=== PATIENT | male | born 1980 | race Caucasian/White ===

== ENCOUNTER 2016-11-18 09:05 | Inpatient (IN) | payer BC, OTHER ==
[2016-11-18] MEDS ORDERED: SODIUM CHLORIDE 0.9% 1,000 ML IV STA (09:11)
[2016-11-18 09:23] LABS: Glucose,Whole Blood 33 mg/dL (75-99)
[2016-11-18 09:23] LABS: Glucose,Whole Blood 136 mg/dL (75-99)
--- NOTE | 2016-11-18 09:36 | ED ---
Altered Mental Status HPI - General Chief Complaint: Altered Mental Status Stated Complaint: poss seizure Time Seen by Provider: 11/18/16 09:11 Source: EMS, RN notes reviewed Mode of arrival: EMS Limitations: altered mental status - History of Present Illness Initial Comments: Patient is a 36-year-old male presents emergency room for evaluation. Patient was brought in by EMS. Patient was apparently found on the side of the road having a possible seizure. Patient has no recollection of anything. Patient states last thing he remembers was sitting in his apartment and then he was here. Patient denies drinking. Patient denies illicit drug use. Patient does state he was started on a new sleeping medication by Dr. Polo about 3 days ago. Patient does admit that he has a history of seizures. Patient states last seizure was about 15 years ago. Patient denies taking any medications for seizures. Patient states and the other medication he is on is for blood pressure. Patient denies headache, dizziness, changes in vision, chest pain, shortness of breath, abdominal pain, nausea, vomiting, paresthesias, weakness, unilateral weakness, fevers, chills. - Related Data Home Medications Medication Instructions Recorded Confirmed Lisinopril [Zestril] 10 mg PO DAILY 11/18/16 11/18/16 Mirtazapine [Remeron] 15 mg PO HS 11/18/16 11/18/16 traZODone HCL [Desyrel] 100 mg PO HS 11/18/16 11/18/16 Allergies Allergy/AdvReac Type Severity Reaction Status Date / Time hot sauce Allergy Swelling Uncoded 11/18/16 09:17 Review of Systems ROS Statement: Those systems with pertinent positive or pertinent negative responses have been documented in the HPI. ROS Other: All systems not noted in ROS Statement are negative. Past Medical History Past Medical History: Asthma, Hypertension, Seizure Disorder History of Any Multi-Drug Resistant Organisms: None Reported Past Surgical History: Cholecystectomy Past Psychological History: Anxiety, Depression Smoking Status: Current every day smoker Past Alcohol Use History: Occasional Past Drug Use History: None Reported - Past Family History Father Family Medical History: Cancer Additional Family Medical History / Comment(s): Prostate cancer. Mother History Unknown: Yes Additional Family Medical History / Comment(s): Pt states he does not have much contact with his mother. General Exam - General Exam Comments Initial Comments: Sitting in exam room, no acute distress. Limitations: altered mental status General appearance: alert, in no apparent distress Head exam: Present: atraumatic, normocephalic, normal inspection Eye exam: Present: normal appearance ENT exam: Present: normal exam Neck exam: Present: normal inspection Respiratory exam: Present: normal lung sounds bilaterally. Absent: respiratory distress Cardiovascular Exam: Present: normal rhythm, tachycardia, normal heart sounds Extremities exam: Present: normal inspection Back exam: Present: normal inspection Neurological exam: Present: alert, altered Expanded Neurological exam: Present: memory loss-recent event Patient oriented to: Present: person, place. Absent: time Speech: Present: fluid speech Cranial nerves: EOM's Intact: Normal, Facial Sensation: Normal Sensory exam: Upper Extremity Light Touch: Normal, Lower Extremity Light Touch: Normal Motor strength exam: RUE: 5, LUE: 5, RLE: 5, LLE: 5 Eye Response: (4) open spontaneously Motor Response: (6) obeys commands Verbal Response: (4) confused conversation Psychiatric exam: Present: normal affect Skin exam: Present: warm, dry, intact, normal color. Absent: rash Course Vital Signs 11/18/16 11/18/16 11/18/16 09:08 10:02 11:00 Temperature 98.4 F Pulse Rate 133 H 112 H 104 H Respiratory 18 20 18 Rate Blood Pressure 135/77 132/73 134/80 O2 Sat by Pulse 93 L 100 100 Oximetry 11/18/16 11/18/16 11/18/16 12:00 13:00 13:21 Temperature 99.0 F Pulse Rate 84 100 Respiratory 18 18 Rate Blood Pressure 135/76 133/83 O2 Sat by Pulse 99 99 Oximetry Medical Decision Making - Medical Decision Making Patient is a 36-year-old male presents emergency room with altered mental status. Alcohol level negative. Urine drug screen negative. Patient most likely had a seizure. Lactic acid 7.3 most likely residual from seizure. Magnesium 0.8. Patient was repleted with IV magnesium. Patient will be admitted for further evaluation. Case discussed with Dr. Bailey. Dr. Bailey discussed case with Dr. Tucker who agreed to admit patient. - Lab Data Result diagrams: 11/18/16 09:19 11/18/16 09:19 Lab Results 11/18/16 11/18/16 11/18/16 Range/Units 09:19 09:19 09:19 WBC (3.8-10.6) k/uL RBC (4.30-5.90) m/uL Hgb (13.0-17.5) gm/dL Hct (39.0-53.0) % MCV (80.0-100.0) fL MCH (25.0-35.0) pg MCHC (31.0-37.0) g/dL RDW (11.5-15.5) % Plt Count (150-450) k/uL Neutrophils % % Lymphocytes % % Monocytes % % Eosinophils % % Basophils % % Neutrophils # (1.3-7.7) k/uL Lymphocytes # (1.0-4.8) k/uL Monocytes # (0-1.0) k/uL Eosinophils # (0-0.7) k/uL Basophils # (0-0.2) k/uL Macrocytosis PT 12.1 H (9.0-12.0) sec INR 1.2 (<1.1) APTT 22.7 (22.0-30.0) sec Sodium 130 L (137-145) mmol/L Potassium 3.5 (3.5-5.1) mmol/L Chloride 87 L (98-107) mmol/L Carbon Dioxide 13 L (22-30) mmol/L Anion Gap 30 mmol/L BUN 17 (9-20) mg/dL Creatinine 0.97 (0.66-1.25) mg/dL Est GFR (MDRD) Af Amer >60 (>60 ml/min/1.73 sqM) Est GFR (MDRD) Non-Af >60 (>60 ml/min/1.73 sqM) Glucose 148 H (74-99) mg/dL POC Glucose (mg/dL) (75-99) mg/dL POC Glu Orientation And Mobility Specialist ID Plasma Lactic Acid Rupert (0.7-2.0) mmol/L Calcium 9.4 (8.4-10.2) mg/dL Magnesium 0.8 L* (1.6-2.3) mg/dL Total Bilirubin 2.7 H (0.2-1.3) mg/dL AST 101 H (17-59) U/L ALT 76 H (21-72) U/L Alkaline Phosphatase 37 L (38-126) U/L Total Creatine Kinase 827 H (55-170) U/L CK-MB (CK-2) 11.6 H* (0.0-2.4) ng/mL CK-MB (CK-2) Rel Index 1.4 Troponin I <0.012 (0.000-0.034) ng/mL Total Protein 8.2 (6.3-8.2) g/dL Albumin 5.1 H (3.5-5.0) g/dL Urine Color Urine Appearance (Clear) Urine pH (5.0-8.0) Ur Specific [place] (1.001-1.035) Urine Protein (Negative) Urine Glucose (UA) (Negative) Urine Ketones (Negative) Urine Blood (Negative) Urine Nitrite (Negative) Urine Bilirubin (Negative) Urine Urobilinogen (<2.0) mg/dL Ur Leukocyte Esterase (Negative) Urine WBC (0-5) /hpf Ur Squamous Epith Cells (0-4) /hpf Amorphous Sediment (None) /hpf Hyaline Casts (0-2) /lpf Urine Mucus (None) /hpf Salicylates <1.0 mg/dL Urine Opiates Screen (NotDetected) Ur Oxycodone Screen (NotDetected) Urine Methadone Screen (NotDetected) Ur Propoxyphene Screen (NotDetected) Acetaminophen <10.0 ug/mL Ur Barbiturates Screen (NotDetected) U Tricyclic Antidepress (NotDetected) Ur Phencyclidine Scrn (NotDetected) Ur Amphetamines Screen (NotDetected) U Methamphetamines Scrn (NotDetected) U Benzodiazepines Scrn (NotDetected) Urine Cocaine Screen (NotDetected) U Marijuana (THC) Screen (NotDetected) Serum Alcohol <10 mg/dL 11/18/16 11/18/16 11/18/16 Range/Units 09:19 09:20 09:21 WBC 9.5 (3.8-10.6) k/uL RBC 3.84 L (4.30-5.90) m/uL Hgb 14.0 (13.0-17.5) gm/dL Hct 41.3 (39.0-53.0) % MCV 107.6 H (80.0-100.0) fL MCH 36.5 H (25.0-35.0) pg MCHC 33.9 (31.0-37.0) g/dL RDW 12.9 (11.5-15.5) % Plt Count 192 (150-450) k/uL Neutrophils % 81 % Lymphocytes % 10 % Monocytes % 6 % Eosinophils % 1 % Basophils % 0 % Neutrophils # 7.7 (1.3-7.7) k/uL Lymphocytes # 0.9 L (1.0-4.8) k/uL Monocytes # 0.6 (0-1.0) k/uL Eosinophils # 0.1 (0-0.7) k/uL Basophils # 0.0 (0-0.2) k/uL Macrocytosis Moderate PT (9.0-12.0) sec INR (<1.1) APTT (22.0-30.0) sec Sodium (137-145) mmol/L Potassium (3.5-5.1) mmol/L Chloride (98-107) mmol/L Carbon Dioxide (22-30) mmol/L Anion Gap mmol/L BUN (9-20) mg/dL Creatinine (0.66-1.25) mg/dL Est GFR (MDRD) Af Amer (>60 ml/min/1.73 sqM) Est GFR (MDRD) Non-Af (>60 ml/min/1.73 sqM) Glucose (74-99) mg/dL POC Glucose (mg/dL) 33 L 136 H (75-99) mg/dL POC Glu Orientation And Mobility Specialist ID Sharp, Yadi Sharp, Yadi Plasma Lactic Acid Rupert (0.7-2.0) mmol/L Calcium (8.4-10.2) mg/dL Magnesium (1.6-2.3) mg/dL Total Bilirubin (0.2-1.3) mg/dL AST (17-59) U/L ALT (21-72) U/L Alkaline Phosphatase (38-126) U/L Total Creatine Kinase (55-170) U/L CK-MB (CK-2) (0.0-2.4) ng/mL CK-MB (CK-2) Rel Index Troponin I (0.000-0.034) ng/mL Total Protein (6.3-8.2) g/dL Albumin (3.5-5.0) g/dL Urine Color Urine Appearance (Clear) Urine pH (5.0-8.0) Ur Specific [place] (1.001-1.035) Urine Protein (Negative) Urine Glucose (UA) (Negative) Urine Ketones (Negative) Urine Blood (Negative) Urine Nitrite (Negative) Urine Bilirubin (Negative) Urine Urobilinogen (<2.0) mg/dL Ur Leukocyte Esterase (Negative) Urine WBC (0-5) /hpf Ur Squamous Epith Cells (0-4) /hpf Amorphous Sediment (None) /hpf Hyaline Casts (0-2) /lpf Urine Mucus (None) /hpf Salicylates mg/dL Urine Opiates Screen (NotDetected) Ur Oxycodone Screen (NotDetected) Urine Methadone Screen (NotDetected) Ur Propoxyphene Screen (NotDetected) Acetaminophen ug/mL Ur Barbiturates Screen (NotDetected) U Tricyclic Antidepress (NotDetected) Ur Phencyclidine Scrn (NotDetected) Ur Amphetamines Screen (NotDetected) U Methamphetamines Scrn (NotDetected) U Benzodiazepines Scrn (NotDetected) Urine Cocaine Screen (NotDetected) U Marijuana (THC) Screen (NotDetected) Serum Alcohol mg/dL 11/18/16 11/18/16 Range/Units 09:43 09:46 WBC (3.8-10.6) k/uL RBC (4.30-5.90) m/uL Hgb (13.0-17.5) gm/dL Hct (39.0-53.0) % MCV (80.0-100.0) fL MCH (25.0-35.0) pg MCHC (31.0-37.0) g/dL RDW (11.5-15.5) % Plt Count (150-450) k/uL Neutrophils % % Lymphocytes % % Monocytes % % Eosinophils % % Basophils % % Neutrophils # (1.3-7.7) k/uL Lymphocytes # (1.0-4.8) k/uL Monocytes # (0-1.0) k/uL Eosinophils # (0-0.7) k/uL Basophils # (0-0.2) k/uL Macrocytosis PT (9.0-12.0) sec INR (<1.1) APTT (22.0-30.0) sec Sodium (137-145) mmol/L Potassium (3.5-5.1) mmol/L Chloride (98-107) mmol/L Carbon Dioxide (22-30) mmol/L Anion Gap mmol/L BUN (9-20) mg/dL Creatinine (0.66-1.25) mg/dL Est GFR (MDRD) Af Amer (>60 ml/min/1.73 sqM) Est GFR (MDRD) Non-Af (>60 ml/min/1.73 sqM) Glucose (74-99) mg/dL POC Glucose (mg/dL) (75-99) mg/dL POC Glu Orientation And Mobility Specialist ID Plasma Lactic Acid Rupert 7.3 H* (0.7-2.0) mmol/L Calcium (8.4-10.2) mg/dL Magnesium (1.6-2.3) mg/dL Total Bilirubin (0.2-1.3) mg/dL AST (17-59) U/L ALT (21-72) U/L Alkaline Phosphatase (38-126) U/L Total Creatine Kinase (55-170) U/L CK-MB (CK-2) (0.0-2.4) ng/mL CK-MB (CK-2) Rel Index Troponin I (0.000-0.034) ng/mL Total Protein (6.3-8.2) g/dL Albumin (3.5-5.0) g/dL Urine Color Felt Urine Appearance Turbid (Clear) Urine pH 5.5 (5.0-8.0) Ur Specific [place] 1.018 (1.001-1.035) Urine Protein 3+ H (Negative) Urine Glucose (UA) Trace H (Negative) Urine Ketones 1+ H (Negative) Urine Blood Moderate H (Negative) Urine Nitrite Negative (Negative) Urine Bilirubin 1+ H (Negative) Urine Urobilinogen 6.0 (<2.0) mg/dL Ur Leukocyte Esterase Negative (Negative) Urine WBC 4 (0-5) /hpf Ur Squamous Epith Cells 5 H (0-4) /hpf Amorphous Sediment Rare H (None) /hpf Hyaline Casts 434 H (0-2) /lpf Urine Mucus Many H (None) /hpf Salicylates mg/dL Urine Opiates Screen Not Detected (NotDetected) Ur Oxycodone Screen Not Detected (NotDetected) Urine Methadone Screen Not Detected (NotDetected) Ur Propoxyphene Screen Not Detected (NotDetected) Acetaminophen ug/mL Ur Barbiturates Screen Not Detected (NotDetected) U Tricyclic Antidepress Not Detected (NotDetected) Ur Phencyclidine Scrn Not Detected (NotDetected) Ur Amphetamines Screen Not Detected (NotDetected) U Methamphetamines Scrn Not Detected (NotDetected) U Benzodiazepines Scrn Not Detected (NotDetected) Urine Cocaine Screen Not Detected (NotDetected) U Marijuana (THC) Screen Not Detected (NotDetected) Serum Alcohol mg/dL Sinus tachycardia, ventricular rate 120 bpm, RI interval 124 ms, QRS duration 84 ms, QT/QTC 354/500 ms 11/18/16 13:35 - Radiology Data Radiology results: report reviewed, image reviewed Disposition Clinical Impression: Altered mental status, Seizure, Hypomagnesemia Disposition: ADMITTED IP TO THIS [facility] Condition: Stable Decision Date: 11/18/16
[2016-11-18 09:42] LABS: Basophils % (A) 0 %; CH 37.3; CHCM 34.8; Eosinophils # (A) 0.1 k/uL (0-0.7); Eosinophils % (A) 1 %; HCT 41.3 % (39.0-53.0); HDW 2.07; Luc # (Auto) 0.27; Luc % (Auto) 3; Lymphocytes # (A) 0.9 k/uL (1.0-4.8); Lymphocytes % (A) 10 %; MCH 36.5 pg (25.0-35.0); MCHC 33.9 g/dL (31.0-37.0); MCV 107.6 fL (80.0-100.0); Macrocytosis Moderate; Mean Platelet Volume 8.4; Monocytes # (A) 0.6 k/uL (0-1.0); Monocytes % (A) 6 %; Neutrophils # (A) 7.7 k/uL (1.3-7.7); Neutrophils % (A) 81 %; RBC 3.84 m/uL (4.30-5.90); RDW 12.9 % (11.5-15.5); WBC 9.5 k/uL (3.8-10.6); WBC (Perox) 9.82
[2016-11-18 09:56] LABS: INR 1.2 (<1.1); Partial Thromboplastin Time 22.7 sec (22.0-30.0); Prothrombin Time 12.1 sec (9.0-12.0)
[2016-11-18 10:05] LABS: Creatine Kinase 827 U/L (55-170)
[2016-11-18 10:07] LABS: Amorphous Sediment,Urine Rare /hpf; Appearance,Urine Turbid (Clear); Bilirubin,Urine 1+ (Negative); Glucose,Urine (UA) Trace (Negative); Ketones,Urine 1+ (Negative); Leukocyte Esterase,Urine Negative (Negative); Mucus,Urine Many /hpf; Nitrite,Urine Negative (Negative); PH, Urine 5.5 (5.0-8.0); Particle Count 54637; Protein,Urine 3+ (Negative); Specific Gravity,Urine 1.018 (1.001-1.035); Squamous Epithelial Cell,Urine 5 /hpf (0-4); UA Billing (MACRO vs. MICRO) MICRO; WBC,Urine 4 /hpf (0-5)
[2016-11-18 10:08] LABS: ALT 76 U/L (21-72); AST 101 U/L (17-59); Acetaminophen <10.0 ug/mL; Alcohol <10 mg/dL; Alkaline Phosphatase 37 U/L (38-126); Anion Gap 30 mmol/L; Blood Urea Nitrogen 17 mg/dL (9-20); Calcium 9.4 mg/dL (8.4-10.2); Carbon Dioxide 13 mmol/L (22-30); Chloride 87 mmol/L (98-107); Glucose 148 mg/dL (74-99); Non-African American GFR(MDRD) >60 (>60 ml/min/1.73 sqM); Potassium 3.5 mmol/L (3.5-5.1); Salicylate <1.0 mg/dL; Sodium 130 mmol/L (137-145); Total Bilirubin 2.7 mg/dL (0.2-1.3); Total Protein 8.2 g/dL (6.3-8.2)
[2016-11-18 10:17] LABS: Troponin I <0.012 ng/mL (0.000-0.034)
[2016-11-18 10:21] LABS: Creatine Kinase MB 11.6 ng/mL (0.0-2.4)
[2016-11-18 10:28] LABS: Magnesium 0.8 mg/dL (1.6-2.3)
[2016-11-18] MEDS: MAGNESIUM SULFATE-D5W PMX 1 GM in DEXTROSE/WATER 1 100ML.BAG IVPB SCH ×4 (11:16→14:51)
--- NOTE | 2016-11-18 11:48 | CT ---
EXAMINATION TYPE: CT brain wo con DATE OF EXAM: 11/18/2016 COMPARISON: NONE HISTORY: Possible seizure CT DLP: 1072.[address] of the brain was performed. The ventricles, basal cisterns and sulci overlying the cerebral convexities demonstrate a normal appe arance. There is no evidence for intracranial hemorrhage or sulcal effacement. No mass effects are seen. Osseous calvarium is intact. If symptoms persist consider MRI as clinically warranted. IMPRESSION: 1. No acute intracranial process is seen at this time.
[2016-11-18] MEDS ORDERED: NALOXONE 0.4 MG/ML 1 ML VIAL IV PRN (12:00)
[2016-11-18] MEDS ORDERED: ONDANSETRON 4 MG/2 ML VIAL IVP PRN (12:00)
[2016-11-18] MEDS ORDERED: ACETAMINOPHEN TAB 325 MG TAB PO PRN (12:00)
[2016-11-18] MEDS: SODIUM CHLORIDE 0.9% 1,000 ML IV SCH (12:32)
[2016-11-18] MEDS: ENOXAPARIN 40 MG/0.4 ML SYRINGE SQ SCH (14:51)
[2016-11-18] MEDS: MAGNESIUM OXIDE 400 MG TAB PO SCH ×3 (16:54→21:42)
[2016-11-18] MEDS: NICOTINE 14MG/24HR PATCH TRANSDERM SCH (16:54)
[2016-11-18] MEDS ORDERED: LORazepam 2 MG/ML SYRINGE IV STA (20:00)
[2016-11-18] MEDS ORDERED: LORazepam 2 MG/ML SYRINGE ONE (20:01)
[2016-11-18] MEDS ORDERED: LORazepam 2 MG/ML SYRINGE IV PRN ×2 (20:10→20:23)
[2016-11-18] MEDS ORDERED: levETIRAcetam IV 1,000 MG in SALINE 1 100ML.BAG IVPB STA (20:14)
--- NOTE | 2016-11-18 20:48 | P.CNNES ---
History of Present Illness Consult date: 11/18/16 History of Present Illness: The patient is a 36-year-old right-handed white male who states that this morning he was found outside his apartment and reportedly had had a seizure. He does not recall anything of the incident. He was brought by EMS to [facility]. This the patient is awake and alert at present and his father is at the bedside. The patient reports that he had seizures as a teenager. He was on medications but does not recall the name of it. The patient reports that 3 weeks ago he was in the [facility] and he was very out of balance. His father states that he was walking like a drunk and out of balance. Also he reports that several months ago he was at [place] any passed out. He did not go to the hospital then. The patient also reports that his been having tremors and very unsteady on his feet. After the evaluation the patient had a generalized tonic-clonic seizure. This lasted for 3 minutes and he had a post ictal period of confusion and he received 1 mg of Ativan IV push Review of Systems Constitutional: Denies chills, Denies fever Ears, nose, mouth and throat: Denies headache, Denies sore throat Cardiovascular: Denies chest pain, Denies shortness of breath Respiratory: Denies cough Gastrointestinal: Reports as per HPI Musculoskeletal: Denies myalgias Neurological: Denies numbness, Denies weakness Psychiatric: Denies anxiety, Denies depression Past Medical History Past Medical History: Asthma, Hypertension, Seizure Disorder Additional Past Medical History / Comment(s): Sleeping problems, arthritis R hand History of Any Multi-Drug Resistant Organisms: None Reported Past Surgical History: Cholecystectomy Additional Past Surgical History / Comment(s): R hand fracture repair. Past Anesthesia/Blood Transfusion Reactions: No Reported Reaction Past Psychological History: Anxiety, Depression Additional Psychological History / Comment(s): Pt resides alone. He does not drive, he gets to app by his father or sister driving him. He is independent. Smoking Status: Current every day smoker Past Alcohol Use History: Occasional Additional Past Alcohol Use History / Comment(s): Pt started smoking in 1994 and states he quit a few weeks ago. Pt states he drinks alcohol on occasion and has never been a heavy drinker. Past Drug Use History: None Reported - Past Family History Father Family Medical History: Cancer Additional Family Medical History / Comment(s): Prostate cancer. Mother History Unknown: Yes Additional Family Medical History / Comment(s): Pt states he does not have much contact with his mother. Medications and Allergies Home Medications Medication Instructions Recorded Confirmed Type Lisinopril [Zestril] 10 mg PO DAILY 11/18/16 11/18/16 History Mirtazapine [Remeron] 15 mg PO HS 11/18/16 11/18/16 History traZODone HCL [Desyrel] 100 mg PO HS 11/18/16 11/18/16 History Allergies Allergy/AdvReac Type Severity Reaction Status Date / Time hot sauce Allergy Swelling Uncoded 11/18/16 09:17 Physical Examination - Vital Signs Vital Signs: Vital Signs Temp Pulse Pulse Resp BP BP Pulse Ox 11/18/16 15:00 98.8 F 106 H 20 150/81 97 11/18/16 14:22 98.8 F 110 H 18 153/86 96 11/18/16 13:21 99.0 F 11/18/16 13:00 100 18 133/83 99 11/18/16 12:00 84 18 135/76 99 11/18/16 11:00 104 H 18 134/80 100 11/18/16 10:02 112 H 20 132/73 100 11/18/16 09:08 98.4 F 133 H 18 135/77 93 L Intake and Output 11/18/16 11/18/16 11/18/16 06:59 14:59 22:59 Other: Voiding Method Toilet Urinal Weight 66.678 kg Patient Weight 11/19/16 06:59 Weight 66.678 kg - Constitutional General appearance: disheveled - EENT EENT: PERRL, hearing intact, vision intact - Respiratory Respiratory: lungs clear - Cardiovascular Cardiovascular: regular rate - Neurologic Cranial nerve examination: PERRL, VFF, face symmetric, tongue midline Speech examination: intact Sensorimotor examination: intact Detailed motor examination: grossly full strength in all extremities Reflexes: 2+: knee - Psychiatric Psychiatric: mood/affect appropriate Results - Laboratory Findings CBC and BMP: 11/18/16 09:19 11/18/16 09:19 Abnormal Lab Findings: Abnormal Labs 11/18/16 11/18/16 11/18/16 09:19 09:19 09:19 RBC MCV MCH Lymphocytes # PT 12.1 H Sodium 130 L Chloride 87 L Carbon Dioxide 13 L Glucose 148 H POC Glucose (mg/dL) Plasma Lactic Acid Rupert Magnesium 0.8 L* Total Bilirubin 2.7 H AST 101 H ALT 76 H Alkaline Phosphatase 37 L Total Creatine Kinase 827 H CK-MB (CK-2) 11.6 H* Albumin 5.1 H Urine Protein Urine Glucose (UA) Urine Ketones Urine Blood Urine Bilirubin Ur Squamous Epith Cells Amorphous Sediment Hyaline Casts Urine Mucus 11/18/16 11/18/16 11/18/16 09:19 09:20 09:21 RBC 3.84 L MCV 107.6 H MCH 36.5 H Lymphocytes # 0.9 L PT Sodium Chloride Carbon Dioxide Glucose POC Glucose (mg/dL) 33 L 136 H Plasma Lactic Acid Rupert Magnesium Total Bilirubin AST ALT Alkaline Phosphatase Total Creatine Kinase CK-MB (CK-2) Albumin Urine Protein Urine Glucose (UA) Urine Ketones Urine Blood Urine Bilirubin Ur Squamous Epith Cells Amorphous Sediment Hyaline Casts Urine Mucus 11/18/16 11/18/16 09:43 09:46 RBC MCV MCH Lymphocytes # PT Sodium Chloride Carbon Dioxide Glucose POC Glucose (mg/dL) Plasma Lactic Acid Rupert 7.3 H* Magnesium Total Bilirubin AST ALT Alkaline Phosphatase Total Creatine Kinase CK-MB (CK-2) Albumin Urine Protein 3+ H Urine Glucose (UA) Trace H Urine Ketones 1+ H Urine Blood Moderate H Urine Bilirubin 1+ H Ur Squamous Epith Cells 5 H Amorphous Sediment Rare H Hyaline Casts 434 H Urine Mucus Many H Assessment and Plan (1) Seizure Status: Acute Code(s): R56.9 - UNSPECIFIED CONVULSIONS (2) Ataxia Status: Acute Code(s): R27.0 - ATAXIA, UNSPECIFIED Plan: The patient is a 36-year-old man with previous history of seizures who presents to the hospital with suspected seizure. He was found unresponsive outside his apartment. The patient also had a witnessed seizure after this consultation and the patient was loaded with Keppra. He will have an EEG in the morning. Also recommend MRI.
[2016-11-18] MEDS ORDERED: traZODone HCL 100 MG TAB PO SCH (21:00)
--- NOTE | 2016-11-18 21:28 | HP ---
DATE OF ADMISSION: 12/08/2016 PRESENTING COMPLAINT: Acute confusion. HISTORY OF PRESENTING COMPLAINT: This is a 36-year-old patient of Dr. Polo. Patient has a history of asthma, hypertension, depression, insomnia. The patient is actually working towards getting a job. Decided to walk in the center of the road. The next thing he remembers actually is being up in the hospital. Per the EMS running sheet, patient was seen by bystanders with possible seizing. Patient is unaware of where he is or how he got there. He was very inconsistent with answers. Denied any chest pains. No focal symptoms. The patient states that he drinks alcohol very occasionally. Patient has been on trazodone for quite some time. He had a seizure in the past two. Denies any urine incontinence or tongue biting. Patient is rather shaky during the interview, somewhat restless. REVIEW OF SYSTEMS: CONSTITUTIONAL: Tired. HEENT: None. RESPIRATORY: Occasional short of breath. CARDIOVASCULAR: No chest pain. GASTROINTESTINAL: None. GENITOURINARY: None. Musculoskeletal: None. Dermatological: None. HEMATOLOGIC: None. LYMPHATICS: None. PSYCHIATRY: Anxious, depression. NEUROLOGICAL: Has got some tremors. INVESTIGATIONS: White count 9.5, hemoglobin 14, MCV 107.6. Protime 12.1, sodium 130, potassium 3.5, bicarb 13, glucose 148, magnesium 0.8, bilirubin 2.7. AST 101, ALT 76, UA showing +3 plus protein. Some blood. CT scan of the brain nil acute. ASSESSMENT: 1. This is a patient who was found to be somewhat confused and possibly seizing by bystanders. Patient has several features suggestive of alcoholism macrocytosis, low-sodium, hypomagnesemia increased liver enzymes but the patient himself denies the same. Serum alcohol was less than 10. It is possible patient actually had alcohol related withdrawals but simple seizures actually still present. 2. Chronic obstructive pulmonary disease in a current smoker. 3. Chronic nicotine dependence. Patient is a smoker. 4. Essential hypertension. 5. Depression not otherwise specified. PLAN: Patient was put on IV fluids, we will do a liver ultrasound. Patient's trazodone has been discontinued. We will order an EEG. Neuro checks are in place. Review LFTs. Patient's magnesium will be replaced. Consult psychiatry and Neurology is being done. May have to replace patient's trazodone, which may precipitate more seizure activity. Care was discussed with the patient. Copy to Dr. Polo.
[2016-11-18] MEDS: MIRTAZAPINE 15 MG TAB PO SCH (23:50)
[2016-11-19] MEDS: SODIUM CHLORIDE 0.9% 1,000 ML IV SCH ×3 (01:44→16:43)
[2016-11-19] MEDS: levETIRAcetam 500 MG TAB PO SCH ×2 (06:04→15:19)
[2016-11-19] MEDS: ENOXAPARIN 40 MG/0.4 ML SYRINGE SQ SCH (07:38)
[2016-11-19] MEDS: MAGNESIUM OXIDE 400 MG TAB PO SCH ×4 (07:38→22:00)
[2016-11-19] MEDS: LISINOPRIL 10 MG TAB PO SCH (07:38)
[2016-11-19] MEDS: NICOTINE 14MG/24HR PATCH TRANSDERM SCH (07:38)
[2016-11-19 08:46] LABS: Basophils % (A) 0 %; CH 37.3; CHCM 34.4; Eosinophils # (A) 0.1 k/uL (0-0.7); Eosinophils % (A) 1 %; HCT 33.7 % (39.0-53.0); HDW 2.09; HGB 11.5 gm/dL (13.0-17.5); Luc # (Auto) 0.12; Luc % (Auto) 2; Lymphocytes # (A) 0.6 k/uL (1.0-4.8); Lymphocytes % (A) 9 %; MCH 37.2 pg (25.0-35.0); MCHC 34.2 g/dL (31.0-37.0); MCV 108.7 fL (80.0-100.0); Macrocytosis Moderate; Mean Platelet Volume 8.1; Monocytes # (A) 0.5 k/uL (0-1.0); Monocytes % (A) 8 %; Neutrophils # (A) 5.2 k/uL (1.3-7.7); Neutrophils % (A) 81 %; RDW 12.9 % (11.5-15.5); WBC 6.4 k/uL (3.8-10.6); WBC (Perox) 6.98
[2016-11-19 08:56] LABS: ALT 68 U/L (21-72); AST 109 U/L (17-59); Alkaline Phosphatase 30 U/L (38-126); Anion Gap 10 mmol/L; Blood Urea Nitrogen 6 mg/dL (9-20); Calcium 8.9 mg/dL (8.4-10.2); Carbon Dioxide 28 mmol/L (22-30); Chloride 101 mmol/L (98-107); Glucose 81 mg/dL (74-99); Magnesium 1.7 mg/dL (1.6-2.3); Non-African American GFR(MDRD) >60 (>60 ml/min/1.73 sqM); Potassium 3.3 mmol/L (3.5-5.1); Sodium 139 mmol/L (137-145); Total Bilirubin 1.9 mg/dL (0.2-1.3); Total Protein 6.6 g/dL (6.3-8.2)
--- NOTE | 2016-11-19 11:02 | US ---
EXAMINATION TYPE: US abdomen limited DATE OF EXAM: 11/19/2016 COMPARISON: 08/27/2015 CLINICAL HISTORY: hepatitis. Epigastric pain, NPO, GB removed x 10 years ago, altered mental status EXAM MEASUREMENTS: Liver Length: 14.8 cm CHD: 0.2 cm Right Kidney: 12.1 x 6.2 x 4.6 cm Pancreas: Tail obscured by overlying bowel gas Liver: echogenic, slightly course Gallbladder: Surgically absent Evidence for sonographic Chapa's sign: neg CHD: wnl Right Kidney: wnl IMPRESSION: 1. Mild fatty hepatic infiltration.
--- NOTE | 2016-11-19 12:05 | MR ---
PRE AND POSTCONTRAST ENHANCED MRI OF THE BRAIN: CLINICAL HISTORY: Seizure disorder CONTRAST: 15 ML Multihance Multiplanar and multispin-echo imaging of the brain was performed both before and after the administr ation of contrast. The ventricles, basal cisterns and sulci overlying the cerebral convexities are moderately prominent for the patient's age group. There is no evidence for midline shift or mass effect. Acute intracranial hemorrhage or extra-axial collection is not evident. Mild increased signal is noted within the deep white matter of both cerebral hemispheres. Following contrast administration, there is no evidence for pathologic enhancement or enhancing mass. The paranasal sinuses and mastoid air cells are well-aerated. IMPRESSION: Advanced atrophic changes for the patient's age group. Mild periventricular white matter changes. No enhancing lesion or acute process seen.
--- NOTE | 2016-11-19 13:51 | HP ---
ADDENDUM: DATE OF ADMISSION: 11/18/2016 PAST MEDICAL HISTORY: COPD, hypertension, seizure, sleeping problems. PAST SURGICAL HISTORY: Cholecystectomy, right hand fracture. Past psych history of depression. SOCIAL HISTORY: Patient lives alone. Patient smoking a pack a day for close to 22 years. States stopped smoking a few days ago. Drinks alcohol occasionally. Family history of prostate cancer. On examination, vital signs on presentation: Temperature 98.4, pulse 133, respiratory rate 18, blood pressure 130/77, pulse ox 93% on room air. GENERAL APPEARANCE: Average build, sitting up, rather shaky. EYES: Pupils equal. Conjunctivae are slightly flushed. HEENT: Oral cavity normal. NECK: JVD not raised. Mass not palpable. RESPIRATORY: Effort normal. LUNGS: Diminished breath sounds. CARDIOVASCULAR: First and second sounds normal. No edema. ABDOMEN: Soft, nontender. Liver and spleen not palpable. LYMPHATIC: No lymph nodes palpable in the neck or axillae. PSYCHIATRY: Alert and oriented x3. Patient is rather anxious-appearing. DERMATOLOGICAL: Patient has got scratch aguilar. NEUROLOGICAL: Power and sensation grossly intact. The patient has got some generalized tremors, is actually a bit shaky.
--- NOTE | 2016-11-19 14:10 | PN ---
DATE OF SERVICE: 11/19/2016 PRESENTING COMPLAINT: Seizures, acute confusion. INTERVAL HISTORY: This patient presented with an episode of acute confusion and seizure activity. Started on Keppra by Neurology. Patient is less shaky. Pending input from Psychiatry. Patient is tolerating his diet. Patient denies taking excessive alcohol, although several clinical findings and lack of findings suggestive of the same. Review of systems done for constitutional, cardiovascular, GI, pulmonary; relevant findings as above. Current medications include IV Keppra. On examination, temperature 100.2, pulse 101, respiration 20, blood pressure 141/85, pulse ox 98% on room air. GENERAL APPEARANCE: Sitting up, looks more stable today. EYES: Pupils equal. Conjunctivae normal. NECK: JVD not raised. Mass not palpable. RESPIRATORY: Effort normal. LUNGS: Diminished breath sounds. CARDIOVASCULAR: First and second sounds normal. No edema. ABDOMEN: Soft, nontender. PSYCHIATRY: Anxious at present. NEUROLOGICAL: Less tremors are present. INVESTIGATIONS: White count 6.4, hemoglobin 11.5. Potassium 3.3, BUN 6, creatinine 0.60. AST is 109. ASSESSMENT: 1. Recurrent seizures with a postictal state. 2. Chronic obstructive pulmonary disease in a current smoker. 3. Chronic nicotine dependence. Patient is a smoker. 4. Essential hypertension. 5. Depression, not otherwise specified. PLAN: Await further testing as per Neurology. Patient started on Keppra. Await input from Psychiatry. Patient denies drinking excessive alcohol. Does state that he did it way back in the past, several years ago. Follow electrolytes closely.
--- NOTE | 2016-11-19 15:03 | P.CN ---
Psychiatric Consult - . Consult date: 11/19/16 Consult:: DATE OF SERVICE: [11/19/2016] IDENTIFYING DATA: This patient is a 36-year-old single male who was admitted to medical floor for seizure HISTORY OF PRESENT ILLNESS: The patient was found outside his apartment and reportedly had a seizure brought to the emergency room. There was no alcohol or drugs of abuse. While being seen by physician he was noted to have a generalized tonic-clonic seizure that lasted for 13 minutes with a postictal period of confusion. He was treated with Ativan IV push and then loaded with Keppra. Psychiatry consult was placed. Patient was lying in bed watching TV answer to his name pleasant cooperative. When asked why he was here he began a long convoluted story about being at school but that they went along with it but in reality he was at college. Patient reported that he is at the [facility]. He is unaware that he is in the hospital, unaware that he had a seizure. When asked about the seizure he reported that chair over there is a electrified and when they put me in there if I move it shocks me. Asked why he they would do that he stated "I don't know I didn't do anything I didn't do what they said I I didn't ask for ransom" PAST PSYCHIATRIC HISTORY: [Denies past history of being in psychiatric unit, no outpatient history that he could remember]. PAST MEDICAL HISTORY: Past history of seizures. ALLERGIES: Hot sauce. CHEMICAL DEPENDENCY HISTORY: Denies. FAMILY PSYCHIATRIC HISTORY: Unknown. FAMILY CHEMICAL DEPENDENCY HISTORY: Unknown. LEGAL HISTORY: Denied. SOCIAL HISTORY: Patient reports that he was born here in [place] that as a child he had a good life his dad would take him hunting and fishing. Patient reports that he did not complete high school, thinks that he dropped out in 11th grade. States that he began working. States he is unemployed right now but thought he would get a job at [employer]. Patient states he's not and never been , no children.. MENTAL STATUS EXAM: Patient is alert to self, gave several dates December 23, November 22 , June, Monday, 2016, 1994. good eye contact. Speech normal volume rate production. Illogical, circumstantial and tangential, appears to be confabulating. Denies depression, denies suicidal ideation. Denies hearing voices, but then points to the speaker in the bed and says except those. No evidence of jass or hypomania. No evidence of psychosis IMPRESSIONS: Patient with history of seizure, one witnessed. History of postictal confusion. Currently appearing to be delirious, possibly still postictal. Delirium, due to seizure disorder PLAN: [Please reconsult when patient is medically stable. Thank you].
[2016-11-19] MEDS ORDERED: LORazepam 2 MG/ML SYRINGE IV PRN ×2 (15:04)
[2016-11-19] MEDS ORDERED: THIAMINE 100 MG/ML 2 ML VIAL IM STA (15:07)
[2016-11-19] MEDS: LORazepam 2 MG/ML SYRINGE IV PRN ×2 (15:20→16:43)
[2016-11-19] MEDS: DIAZEPAM 5 MG TAB PO PRN ×2 (15:20→19:50)
[2016-11-19] MEDS: THIAMINE 100 MG TAB PO SCH (16:42)
[2016-11-19] MEDS: METOPROLOL TARTRATE 25 MG TAB PO SCH (19:49)
[2016-11-19] MEDS: IBUPROFEN 400 MG TAB PO PRN (19:50)
[2016-11-19] MEDS: MIRTAZAPINE 15 MG TAB PO SCH (19:50)
[2016-11-20] MEDS: SODIUM CHLORIDE 0.9% 1,000 ML IV SCH ×3 (03:43→23:59)
[2016-11-20] MEDS: ENOXAPARIN 40 MG/0.4 ML SYRINGE SQ SCH (07:57)
[2016-11-20] MEDS: MAGNESIUM OXIDE 400 MG TAB PO SCH ×4 (07:57→21:37)
[2016-11-20] MEDS: NICOTINE 14MG/24HR PATCH TRANSDERM SCH (07:57)
[2016-11-20] MEDS: METOPROLOL TARTRATE 25 MG TAB PO SCH ×2 (07:58→21:37)
[2016-11-20] MEDS: levETIRAcetam 500 MG TAB PO SCH ×3 (07:58→16:51)
[2016-11-20] MEDS: LISINOPRIL 10 MG TAB PO SCH (07:58)
[2016-11-20] MEDS: DIAZEPAM 5 MG TAB PO PRN (08:01)
[2016-11-20] MEDS: DIAZEPAM 5 MG TAB PO SCH ×3 (11:32→21:38)
[2016-11-20] MEDS: THIAMINE 100 MG TAB PO SCH ×2 (11:34→16:51)
[2016-11-20] MEDS: IBUPROFEN 400 MG TAB PO PRN ×2 (15:05→23:02)
[2016-11-20] MEDS: LORazepam 2 MG/ML SYRINGE IV PRN ×2 (15:10→23:02)
[2016-11-20] MEDS ORDERED: ACETAMINOPHEN TAB 325 MG TAB PO PRN (17:25)
--- NOTE | 2016-11-20 19:02 | XR ---
EXAMINATION TYPE: XR chest 2V DATE OF EXAM: 11/20/2016 6:54 PM COMPARISON: NONE HISTORY: Seizures. Sepsis. TECHNIQUE: Frontal and lateral views of the chest are obtained. FINDINGS: Heart and mediastinum are normal. Lungs are clear. There is no pleural effusion. There are no hilar masses. Bony thorax is intact. IMPRESSION: No active cardiopulmonary disease.
[2016-11-20] MEDS: MIRTAZAPINE 15 MG TAB PO SCH (21:38)
--- NOTE | 2016-11-21 05:32 | PN ---
DATE OF SERVICE: 11/20/2016 PRESENTING COMPLAINT: Seizures. This patient presented with an episode of acute confusion and seizure activity. Started on Keppra by neurology. Later in the day yesterday, patient developed clinical symptoms to indicate alcohol withdrawal. Patient was placed on Valium, beta noble and Ativan p.r.n. Patient had previously denied any alcohol use; however, during his delirium tremens told the nurse that he drinks at least a fifth a day. Today on exam patient is sitting up in bed, eating his breakfast. Less shaking noted. Review of systems done for constitutional, cardiovascular, GI, pulmonary with relevant findings as above. Current medications include IV Keppra, Lopressor, Valium 10 mg b.i.d. CIWA scale with Ativan. PHYSICAL EXAM: VITAL SIGNS: Temperature 99.8, pulse 111, respiratory rate 20, blood pressure 140/97, oxygen saturation 97% on room air. GENERAL APPEARANCE: Patient sitting up in bed. No acute distress. Some tremoring noted while at rest. EYES: Pupils equal. Conjunctivae normal. NECK: JVD not raised. Mass not palpable. RESPIRATORY: Effort normal. LUNGS: Diminished breath sounds bilaterally. CARDIOVASCULAR: First and second sounds noted. No edema. ABDOMEN: Soft, nontender. PSYCHIATRY: Mild anxiety noted. NEUROLOGIC: Mild tremoring noted. INVESTIGATIONS: Hemoglobin 11.5, platelet count 143. Potassium 3.3. MRI reveals age related changes. Psychiatry consult delirium due to seizure disorder. Reconsult when medically stable. ASSESSMENT: 1. Recurrent seizures with postictal state, improving. 2. Acute delirium tremens, improving. 3. Chronic obstructive pulmonary disease in a smoker. 4. Chronic nicotine dependence, patient is a smoker. 5. Essential hypertension. 6. Depression, not otherwise specified. PLAN: Continue current treatment and medication plan. Patient still has mild tremoring noted. Will continue to monitor patient closely. Patient was seen and examined by nurse practitioner, Tara Ling, and all elements of the case discussed with the attending, Dr. Tucker.
[2016-11-21 07:56] LABS: Basophils % (A) 0 %; CH 37.4; Eosinophils # (A) 0.2 k/uL (0-0.7); Eosinophils % (A) 2 %; HCT 37.6 % (39.0-53.0); HGB 12.7 gm/dL (13.0-17.5); Luc # (Auto) 0.17; Luc % (Auto) 2; Lymphocytes # (A) 0.9 k/uL (1.0-4.8); Lymphocytes % (A) 11 %; MCH 36.2 pg (25.0-35.0); MCHC 33.7 g/dL (31.0-37.0); MCV 107.2 fL (80.0-100.0); Macrocytosis Moderate; Monocytes # (A) 0.7 k/uL (0-1.0); Monocytes % (A) 9 %; Neutrophils # (A) 5.7 k/uL (1.3-7.7); Neutrophils % (A) 75 %; RBC 3.51 m/uL (4.30-5.90); RDW 12.7 % (11.5-15.5); WBC 7.6 k/uL (3.8-10.6); WBC (Perox) 8.14
[2016-11-21] MEDS: DIAZEPAM 5 MG TAB PO SCH ×3 (08:17→22:22)
[2016-11-21] MEDS: levETIRAcetam 500 MG TAB PO SCH ×3 (08:17→17:05)
[2016-11-21] MEDS: NICOTINE 14MG/24HR PATCH TRANSDERM SCH (08:17)
[2016-11-21] MEDS: ENOXAPARIN 40 MG/0.4 ML SYRINGE SQ SCH (08:17)
[2016-11-21] MEDS: LISINOPRIL 10 MG TAB PO SCH (08:17)
[2016-11-21] MEDS: MAGNESIUM OXIDE 400 MG TAB PO SCH ×4 (08:17→22:22)
[2016-11-21] MEDS: METOPROLOL TARTRATE 25 MG TAB PO SCH ×2 (08:17→22:22)
[2016-11-21 08:55] LABS: Anion Gap 13 mmol/L; Blood Urea Nitrogen 10 mg/dL (9-20); Calcium 9.6 mg/dL (8.4-10.2); Carbon Dioxide 28 mmol/L (22-30); Chloride 99 mmol/L (98-107); Glucose 106 mg/dL (74-99); Non-African American GFR(MDRD) >60 (>60 ml/min/1.73 sqM); Sodium 140 mmol/L (137-145)
--- NOTE | 2016-11-21 10:01 | PN ---
DATE OF SERVICE: 11/20/2016 ATTENDING NOTE: This patient was seen and examined by me on 11/20/16. I reviewed the note of my nurse practitioner, Ms. Ling. Discussed ( ) findings below. This patient presented with seizures, postictal state, put on Keppra. Patient then developed DTs for which patient was put on Valium, beta noble. Shakiness is somewhat a little bit better though patient is still shaking. Sitting up on the bed. On examination, blood pressure 140/97, pulse ox 97% on room air. Heart rate 110. LUNGS: Decreased breath sounds. Tremors are present. Patient able to answer questions. ASSESSMENT: 1. Recurrent seizures with postictal state, present on admission. 2. Acute delirium tremens from alcoholism, slow to respond. 3. Chronic obstructive pulmonary disease in a smoker. 4. Nicotine dependence. PLAN: Dose of Valium slightly to be scaled. Keep the patient on the beta noble. The patient is already on a Keppra. Will follow.
--- NOTE | 2016-11-21 10:10 | P.CN ---
Psychiatric Consult - . Consult date: 11/21/16 Consult:: 11/21/16 10:03 Reassessment of patient. Patient with history of seizure disorder was seen on 11/19/2016, at that time he was confused and disoriented. Today patient wakes easily, pleasant cooperative. Patient reports that he recalls me, that he is in the hospital today because of a seizure that he had several days ago. Today he is able to state the name of the hospital the city, the state and a close approximation of the date, Monday , 12/24/2016. Patient states he is not depressed, nor anxious. He does state that he wishes he had a job and that that makes him upset and sometimes depressed. Reviewed with him some of the areas that he was unable to give history to he states that he doesn't know if anyone had psychiatric problems in his family he does state however that he thinks he had an uncle who committed suicide but he is not sure. 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 He lives alone in his apartment. He is looking for work. Patient denies alcohol or drug abuse. Patient denies any legal problems. Patient states that he thinks he might go stay with his father after discharge and then eventually go back to his apartment. Assessment: Patient with history of seizure, witnessed, had postictal confusion several times including when he was evaluated on November 19. Currently he is alert and oriented to person place year, he is not having any of the report of behavior such as electrified chair, that he is being shocked. No evidence of psychosis, no jass no hypomania. He denies depression, but will use a word depressed when not having a job. He does not meet criteria for diagnosis of depression. No suicide ideation, no past history of attempts, or psychiatric admissions. Delirium resolved Plan: Patient does not require further psychiatric treatment, inpatient unit her medication. Patient is stable from a psychiatric point of view.
[2016-11-21] MEDS ORDERED: Potassium Replacement Protocol 1 EACH MISC MISCELLANE PRN (10:15)
[2016-11-21] MEDS: POTASSIUM CHLORIDE ER 20 MEQ TAB.ER PO SCH ×2 (11:17→12:34)
[2016-11-21] MEDS: THIAMINE 100 MG TAB PO SCH ×2 (12:34→17:05)
[2016-11-21] MEDS: PIPERACILLIN-TAZOBACTAM 3.375 GM in DEXTROSE/WATER 1 50ML.BAG IVPB SCH ×2 (13:10→22:22)
[2016-11-21] MEDS ORDERED: IV VANCOMYCIN PER PHARMACY 1 EACH MISC MISCELLANE PRN (16:45)
[2016-11-21] MEDS: VANCOMYCIN 1,250 MG in SODIUM CHLORIDE 0.9% 250 ML IVPB SCH (17:25)
--- NOTE | 2016-11-21 17:56 | P.PN ---
Subjective Principal diagnosis: Seizure The patient is a 36-year-old man who presented to the hospital with seizure. The patient had a witnessed seizure during his hospital stay and was loaded with Keppra. He is tolerating the medication well. His level is therapeutic range. He has not had any further breakthrough seizures. He has no specific complaints. His tremulousness is somewhat better today. He has gone through some alcohol withdrawal. He does not drive. He is aware of the [place] law regarding driving and seizures. He had an MRI of the brain which was unremarkable except for atrophy. Objective - Vital Signs Vital signs: Vital Signs Temp 99.3 F 11/21/16 14:41 Pulse 102 H 11/21/16 14:41 Resp 18 11/21/16 14:41 BP 115/77 11/21/16 14:41 Pulse Ox 99 11/21/16 14:41 Intake & Output 11/20/16 11/21/16 11/21/16 18:59 06:59 18:59 Intake Total 480 Output Total 800 Balance -320 Intake: Oral 480 Output: Urine 800 Other: Voiding Method Toilet Toilet Toilet Urinal Urinal Urinal # Voids 1 1 2 # Bowel Movements 0 - Constitutional General appearance: Present: average body habitus - Respiratory Respiratory: bilateral: CTA - Cardiovascular Rhythm: regular - Neurologic Neurologic: Present: CNII-XII intact - Musculoskeletal Musculoskeletal: Present: strength equal bilaterally - Psychiatric Psychiatric: Present: appropriate affect - Labs CBC & Chem 7: 11/21/16 07:34 11/21/16 15:26 Labs: Abnormal Lab Results - Last 24 Hours (Table) 11/21/16 11/21/16 11/21/16 Range/Units 07:34 07:34 15:26 RBC 3.51 L (4.30-5.90) m/uL Hgb 12.7 L (13.0-17.5) gm/dL Hct 37.6 L (39.0-53.0) % MCV 107.2 H (80.0-100.0) fL MCH 36.2 H (25.0-35.0) pg Lymphocytes # 0.9 L (1.0-4.8) k/uL Potassium 3.0 L* 3.4 L (3.5-5.1) mmol/L Creatinine 0.59 L (0.66-1.25) mg/dL Glucose 106 H (74-99) mg/dL Microbiology - Last 24 Hours (Table) 11/18/16 13:58 Blood Culture - Preliminary Blood No Growth after 72 hours 11/18/16 09:46 Blood Culture - Preliminary Blood No Growth after 72 hours 11/20/16 18:23 Blood Culture Gram Stain - Preliminary Blood 11/20/16 18:30 Urine Culture - Preliminary Urine,Voided Assessment and Plan (1) Seizure Status: Acute Code(s): R56.9 - UNSPECIFIED CONVULSIONS (2) Ataxia Status: Acute Code(s): R27.0 - ATAXIA, UNSPECIFIED Plan: The patient is a 36-year-old man who presented to the hospital with seizure. As had an MRI of the brain which showed atrophy. He does have some alcohol withdrawal as well. The patient is tolerating Keppra. Recommend continue patient on Keppra and we' ll switch dose to 1500 twice a day
[2016-11-21 19:09] LABS: Amorphous Sediment,Urine Occasional /hpf; Appearance,Urine Clear (Clear); Bilirubin,Urine Negative (Negative); Glucose,Urine (UA) 4+ (Negative); Ketones,Urine Negative (Negative); Leukocyte Esterase,Urine Trace (Negative); Mucus,Urine Rare /hpf; Nitrite,Urine Negative (Negative); PH, Urine 6.5 (5.0-8.0); Particle Count 1036; Protein,Urine Trace (Negative); RBC,Urine 2 /hpf (0-5); Specific Gravity,Urine 1.019 (1.001-1.035); Squamous Epithelial Cell,Urine <1 /hpf (0-4); UA Billing (MACRO vs. MICRO) MICRO; Urobilinogen,Urine <2.0 mg/dL (<2.0); WBC,Urine 5 /hpf (0-5)
--- NOTE | 2016-11-21 21:15 | P.CONS ---
History of Present Illness - Reason for Consult Consult date: 11/21/16 - Chief Complaint Seizure - History of Present Illness 36-year-old male presents to the emergency center after he was witnessed to have what appears to be seizure. Has a known history of seizure. At admission the patient was still somewhat confused. He is improved at this time. He is awake and alert sitting up in bed. Eating his dinner with no difficulties. Trouble swallowing. No choking. Modestly a good historian. He at this time is denying much discomfort. He is denying headache. Did have significant fever without chills or rigors. Denies other acute symptoms at this time. Review of Systems HEENT:Denies headache or acute visual change. Denies sinus or mouth discomforts. Denies neck stiffness or pain. Denies significant oral cavity pain. Denies difficulty on swallowing. Lungs: Denies significant shortness of breath, cough, sputum production, or hemoptysis. Cardiovascular: Denies significant shortness of breath, chest pain, chest wall pain, orthopnea, dyspnea on exertion, syncope Gastrointestinal:Denies nausea, vomiting, diarrhea, constipation, hematemesis, melena, hematochezia. No no significant change of bowel habit noticed. Musculoskeletal: denies significant myalgias or arthralgias. No new joint swelling. Denies new back pain. Skin: Denies new rash or lesions. No new ulcers or wounds are related.. Neuro: Denies headache or visual change. Likely had a seizure. Psychiatric:Denies anxiety or depression. Endocrine: Denies significant fatigue, denies significant weight loss or weight gain. Past Medical History Past Medical History: Asthma, Hypertension, Seizure Disorder Additional Past Medical History / Comment(s): Sleeping problems, arthritis R hand History of Any Multi-Drug Resistant Organisms: None Reported Past Surgical History: Cholecystectomy Additional Past Surgical History / Comment(s): R hand fracture repair. Past Anesthesia/Blood Transfusion Reactions: No Reported Reaction Past Psychological History: Anxiety, Depression Additional Psychological History / Comment(s): Pt resides alone. He does not drive, he gets to appts by his father or sister driving him. He is independent. Does not currently work. Positive tobacco use. Positive alcohol use. Denies injection drug use or recreational drug use. No experience. Denies animal exposures Smoking Status: Current every day smoker Past Alcohol Use History: Occasional Additional Past Alcohol Use History / Comment(s): Pt started smoking in 1994 and states he quit a few weeks ago. Pt states he drinks alcohol on occasion and has never been a heavy drinker. Past Drug Use History: None Reported - Past Family History Father Family Medical History: Cancer Additional Family Medical History / Comment(s): Prostate cancer. Mother History Unknown: Yes Additional Family Medical History / Comment(s): Pt states he does not have much contact with his mother. Medications and Allergies Home Medications and Allergies Comment(s): Current Medications Acetaminophen (Tylenol Tab) 650 mg PO Q6HR PRN PRN Reason: Fever and/ or Pain Last Admin: 11/20/16 17:55 Dose: 650 mg Diazepam (Valium) 5 mg PO TID [facility] Enoxaparin Sodium (Lovenox) 40 mg SQ DAILY [facility] Last Admin: 11/21/16 08:17 Dose: 40 mg Piperacillin/Tazobactam/ (Dextrose 3.375 gm/ IV Solution) 50 mls @ 12.5 mls/hr IVPB Q8H [facility] Last Admin: 11/21/16 13:10 Dose: 12.5 mls/hr Vancomycin HCl 1,250 mg/ (Sodium Chloride) 250 mls @ 125 mls/hr IVPB Q8HR [facility] Last Admin: 11/21/16 17:25 Dose: 125 mls/hr Ibuprofen (Motrin) 400 mg PO Q6HR PRN PRN Reason: Mild Pain or Fever > 100.5 Last Admin: 11/20/16 23:02 Dose: 400 mg Levetiracetam (Keppra) 1,000 mg PO Q8HR [facility] Last Admin: 11/21/16 17:05 Dose: 1,000 mg Lisinopril (Zestril) 10 mg PO DAILY [facility] Last Admin: 11/21/16 08:17 Dose: 10 mg Lorazepam (Ativan) 1 mg IV Q1HR PRN PRN Reason: Seizures Magnesium Oxide (Mag-Ox) 400 mg PO QID [facility] Last Admin: 11/21/16 17:05 Dose: 400 mg Metoprolol Tartrate (Lopressor) 25 mg PO BID [facility] Last Admin: 11/21/16 08:17 Dose: 25 mg Miscellaneous Information (Potassium Per Protocol) 1 each MISCELLANE DAILY PRN ; Protocol PRN Reason: Per Protocol Naloxone HCl (Narcan) 0.2 mg IV Q2M PRN PRN Reason: Opioid Reversal Nicotine (Habitrol 14mg/24hr Patch) 1 patch TRANSDERM DAILY [facility] Last Admin: 11/21/16 08:17 Dose: 1 patch Ondansetron HCl (Zofran) 4 mg IVP Q8HR PRN PRN Reason: Nausea And Vomiting Thiamine HCl (Vitamin B-1) 100 mg PO BID@1200,1700 [facility] Last Admin: 11/21/16 17:05 Dose: 100 mg Home Medications Medication Instructions Recorded Confirmed Type Lisinopril [Zestril] 10 mg PO DAILY 11/18/16 11/18/16 History Mirtazapine [Remeron] 15 mg PO HS 11/18/16 11/18/16 History traZODone HCL [Desyrel] 100 mg PO 11/18/16 11/18/16 History Allergies Allergy/AdvReac Type Severity Reaction Status Date / Time hot sauce Allergy Swelling Uncoded 11/18/16 09:17 Physical Exam Vitals: Vital Signs Temp Pulse Resp BP Pulse Ox 11/21/16 14:41 99.3 F 102 H 18 115/77 99 11/21/16 07:54 98 11/21/16 07:00 97.2 F L 94 16 110/66 98 11/20/16 23:00 101.3 F H 109 H 20 135/76 98 Intake and Output 11/21/16 11/21/16 11/21/16 06:59 14:59 22:59 Other: Voiding Method Toilet Toilet Urinal Urinal # Voids 2 36-year-old male presented for altered mental status and seizure. Now much more comfortable. HEENT: Anicteric conjunctiva are pink and moist nasal mucosa grossly intact without significant lesions, there is no thrush. Full denture upper otherwise poor dentition Neck: The neck is supple without significant lymphadenopathy or thyromegaly. Lungs: Good bilateral air entry without significant crackles or wheezing. There is no significant bronchial sounds. There is no egophony or dullness. Heart: Regular rate and rhythm with an audible S1-S2, no S3 no S4. There is no significant murmur click or rub, PMI was nondisplaced. Abdomen: Positive bowel sounds soft and nontender without palpable masses or organomegaly. There was no guarding or rebound. Extremities: The upper extremities have excellent pulses they are symmetric, no significant petechiae or telangiectasia. No splinter hemorrhages were noted. The lower extremities are free from significant edema. The peripheral pulses were 2+ and symmetric. Neuro: Awake alert oriented to person place and time. There are no acute new gross focal sensory motor deficits. Skin: Evidence of scattered acneiform type lesions on the upper part of his back into the mid back. They're nontender no expressible purulence Results CBC & Chem 7: 11/21/16 07:34 11/21/16 15:26 Labs: Abnormal Lab Results - Last 24 Hours (Table) 11/21/16 11/21/16 11/21/16 Range/Units 07:34 07:34 15:26 RBC 3.51 L (4.30-5.90) m/uL Hgb 12.7 L (13.0-17.5) gm/dL Hct 37.6 L (39.0-53.0) % MCV 107.2 H (80.0-100.0) fL MCH 36.2 H (25.0-35.0) pg Lymphocytes # 0.9 L (1.0-4.8) k/uL Potassium 3.0 L* 3.4 L (3.5-5.1) mmol/L Creatinine 0.59 L (0.66-1.25) mg/dL Glucose 106 H (74-99) mg/dL Urine Protein (Negative) Urine Glucose (UA) (Negative) Urine Blood (Negative) Ur Leukocyte Esterase (Negative) Amorphous Sediment (None) /hpf Urine Mucus (None) /hpf 11/21/16 Range/Units 18:50 RBC (4.30-5.90) m/uL Hgb (13.0-17.5) gm/dL Hct (39.0-53.0) % MCV (80.0-100.0) fL MCH (25.0-35.0) pg Lymphocytes # (1.0-4.8) k/uL Potassium (3.5-5.1) mmol/L Creatinine (0.66-1.25) mg/dL Glucose (74-99) mg/dL Urine Protein Trace H (Negative) Urine Glucose (UA) 4+ H (Negative) Urine Blood Trace H (Negative) Ur Leukocyte Esterase Trace H (Negative) Amorphous Sediment Occasional H (None) /hpf Urine Mucus Rare H (None) /hpf Microbiology - Last 24 Hours (Table) 11/20/16 18:23 Blood Culture - Preliminary Blood No Growth after 24 hours 11/20/16 17:35 Blood Culture - Preliminary Blood No Growth after 24 hours 11/20/16 18:30 Urine Culture - Final Urine,Voided 11/18/16 13:58 Blood Culture - Preliminary Blood No Growth after 72 hours 11/18/16 09:46 Blood Culture - Preliminary Blood No Growth after 72 hours 11/20/16 18:23 Blood Culture Gram Stain - Preliminary Blood Laboratory Results WBC 7.6 k/uL (3.8-10.6) 11/21/16 07:34 RBC 3.51 m/uL (4.30-5.90) L 11/21/16 07:34 Hgb 12.7 gm/dL (13.0-17.5) L 11/21/16 07:34 Hct 37.6 % (39.0-53.0) L 11/21/16 07:34 MCV 107.2 fL (80.0-100.0) H 11/21/16 07:34 MCH 36.2 pg (25.0-35.0) H 11/21/16 07:34 MCHC 33.7 g/dL (31.0-37.0) 11/21/16 07:34 RDW 12.7 % (11.5-15.5) 11/21/16 07:34 Plt Count 183 k/uL (150-450) 11/21/16 07:34 Neutrophils % 75 % 11/21/16 07:34 Lymphocytes % 11 % 11/21/16 07:34 Monocytes % 9 % 11/21/16 07:34 Eosinophils % 2 % 11/21/16 07:34 Basophils % 0 % 11/21/16 07:34 Neutrophils # 5.7 k/uL (1.3-7.7) 11/21/16 07:34 Lymphocytes # 0.9 k/uL (1.0-4.8) L 11/21/16 07:34 Monocytes # 0.7 k/uL (0-1.0) 11/21/16 07:34 Eosinophils # 0.2 k/uL (0-0.7) 11/21/16 07:34 Basophils # 0.0 k/uL (0-0.2) 11/21/16 07:34 Macrocytosis Moderate 11/21/16 07:34 PT 12.1 sec (9.0-12.0) H 11/18/16 09:19 INR 1.2 (<1.1) 11/18/16 09:19 APTT 22.7 sec (22.0-30.0) 11/18/16 09:19 Sodium 140 mmol/L (137-145) 11/21/16 07:34 Potassium 3.4 mmol/L (3.5-5.1) L 11/21/16 15:26 Chloride 99 mmol/L (98-107) 11/21/16 07:34 Carbon Dioxide 28 mmol/L (22-30) 11/21/16 07:34 Anion Gap 13 mmol/L 11/21/16 07:34 BUN 10 mg/dL (9-20) 11/21/16 07:34 Creatinine 0.59 mg/dL (0.66-1.25) L 11/21/16 07:34 Est GFR (MDRD) Af Amer >60 (>60 ml/min/1.73 sqM) 11/21/16 07:34 Est GFR (MDRD) Non-Af >60 (>60 ml/min/1.73 sqM) 11/21/16 07:34 Glucose 106 mg/dL (74-99) H 11/21/16 07:34 POC Glucose (mg/dL) 136 mg/dL (75-99) H 11/18/16 09:21 POC Glu Shade Matcher ID Yadi Mosquera 11/18/16 09:21 Plasma Lactic Acid Ru[place] 1.4 mmol/L (0.7-2.0) 11/18/16 13:58 Calcium 9.6 mg/dL (8.4-10.2) 11/21/16 07:34 Magnesium 1.6 mg/dL (1.6-2.3) 11/21/16 07:34 Total Bilirubin 1.9 mg/dL (0.2-1.3) H 11/19/16 08:19 AST 109 U/L (17-59) H 11/19/16 08:19 ALT 68 U/L (21-72) 11/19/16 08:19 Alkaline Phosphatase 30 U/L (38-126) L 11/19/16 08:19 Total Creatine Kinase 827 U/L (55-170) H 11/18/16 09:19 CK-MB (CK-2) 11.6 ng/mL (0.0-2.4) H* 11/18/16 09:19 CK-MB (CK-2) Rel Index 1.4 11/18/16 09:19 Troponin I <0.012 ng/mL (0.000-0.034) 11/18/16 09:19 Total Protein 6.6 g/dL (6.3-8.2) 11/19/16 08:19 Albumin 4.1 g/dL (3.5-5.0) 11/19/16 08:19 Urine Color Yellow 11/21/16 18:50 Urine Appearance Clear (Clear) 11/21/16 18:50 Urine pH 6.5 (5.0-8.0) 11/21/16 18:50 Ur Specific [place] 1.019 (1.001-1.035) 11/21/16 18:50 Urine Protein Trace (Negative) H 11/21/16 18:50 Urine Glucose (UA) 4+ (Negative) H 11/21/16 18:50 Urine Ketones Negative (Negative) 11/21/16 18:50 Urine Blood Trace (Negative) H 11/21/16 18:50 Urine Nitrite Negative (Negative) 11/21/16 18:50 Urine Bilirubin Negative (Negative) 11/21/16 18:50 Urine Urobilinogen <2.0 mg/dL (<2.0) 11/21/16 18:50 Ur Leukocyte Esterase Trace (Negative) H 11/21/16 18:50 Urine RBC 2 /hpf (0-5) 11/21/16 18:50 Urine WBC 5 /hpf (0-5) 11/21/16 18:50 Ur Squamous Epith Cells <1 /hpf (0-4) 11/21/16 18:50 Amorphous Sediment Occasional /hpf (None) H 11/21/16 18:50 Hyaline Casts 1 /lpf (0-2) 11/21/16 18:50 Urine Mucus Rare /hpf (None) H 11/21/16 18:50 Salicylates <1.0 mg/dL 11/18/16 09:19 Urine Opiates Screen Not Detected (NotDetected) 11/18/16 09:43 Ur Oxycodone Screen Not Detected (NotDetected) 11/18/16 09:43 Urine Methadone Screen Not Detected (NotDetected) 11/18/16 09:43 Ur Propoxyphene Screen Not Detected (NotDetected) 11/18/16 09:43 Acetaminophen <10.0 ug/mL 11/18/16 09:19 Ur Barbiturates Screen Not Detected (NotDetected) 11/18/16 09:43 U Tricyclic Antidepress Not Detected (NotDetected) 11/18/16 09:43 Levetiracetam 8.1 ug/mL (3.0-60.0) 11/20/16 07:52 Ur Phencyclidine Scrn Not Detected (NotDetected) 11/18/16 09:43 Ur Amphetamines Screen Not Detected (NotDetected) 11/18/16 09:43 U Methamphetamines Scrn Not Detected (NotDetected) 11/18/16 09:43 U Benzodiazepines Scrn Not Detected (NotDetected) 11/18/16 09:43 Urine Cocaine Screen Not Detected (NotDetected) 11/18/16 09:43 U Marijuana (THC) Screen Not Detected (NotDetected) 11/18/16 09:43 Serum Alcohol <10 mg/dL 11/18/16 09:19 Microbiology 11/20/16 18:23 Blood Blood Culture - Preliminary No Growth after 24 hours 11/20/16 17:35 Blood Blood Culture - Preliminary No Growth after 24 hours 11/20/16 18:30 Urine,Voided Urine Culture - Final 11/18/16 13:58 Blood Blood Culture - Preliminary No Growth after 72 hours 11/18/16 09:46 Blood Blood Culture - Preliminary No Growth after 72 hours 11/20/16 18:23 Blood Blood Culture Gram Stain - Preliminary Assessment and Plan (1) Fever Narrative/Plan: 28-year-old male presents to Hospital for what appears to be a seizure. His neurological activity has improved. However he developed high- grade fever. Because of his seizure there was concerns of an aspiration pneumonia and was treated with piperacillin tazobactam. It is noted patient seems to be doing considerably better today. Fevers are improved. However laboratory has resulted positive blood cultures gram-positive cocci in clusters. We will give concern to staph or MRSA infection. Consequently vancomycin therapy is added. Follow blood cultures performed and are negative so far. Continue ongoing supportive care. It is timeof the source of staph sepsis is evident. There were does have evidence of some scattered lesions on his back the relates is just from some acne-type problems. This raises a concern for potential source of entry. Status: Acute (2) Gram-positive bacteremia Status: Acute (3) Seizure Status: Acute
[2016-11-22] MEDS: levETIRAcetam 500 MG TAB PO SCH ×4 (00:04→23:08)
[2016-11-22] MEDS: VANCOMYCIN 1,250 MG in SODIUM CHLORIDE 0.9% 250 ML IVPB SCH ×3 (02:06→17:39)
[2016-11-22] MEDS: POTASSIUM CHLORIDE ER 20 MEQ TAB.ER PO SCH ×2 (03:55→04:59)
[2016-11-22] MEDS: PIPERACILLIN-TAZOBACTAM 3.375 GM in DEXTROSE/WATER 1 50ML.BAG IVPB SCH ×3 (04:59→21:22)
--- NOTE | 2016-11-22 06:34 | PN ---
DATE OF SERVICE: 11/21/2016 PRESENTING COMPLAINT: Seizures. INTERVAL HISTORY: This patient is status post seizure and post ictal state and delirium tremens secondary to alcohol use. Today, sitting up in the bed. Family at the bedside. Father and sister are present. Eating his breakfast. Tremors are subsiding. Patient states he feels better today. Review of systems done for constitutional, cardiovascular, GI, pulmonary, neurologic with relevant findings as above. Current medications include IV Keppra, Lopressor, Valium, Zosyn. PHYSICAL EXAM: VITAL SIGNS: Temperature 97.2, pulse 94, respiratory rate 20, blood pressure 110/66, oxygen saturation 98% on room air. GENERAL APPEARANCE: Sitting up in bed, breathing easily. Less tremors noted. EYES: Pupils equal. Conjunctivae normal. NECK: JVD not raised. Mass not palpable. LUNGS: Diminished bilaterally. RESPIRATORY: Effort normal. CARDIOVASCULAR: First and second sounds noted. No edema. ABDOMEN: Soft, nontender. Liver and spleen not palpable. PSYCHIATRY: Alert and oriented x3. Mood and affect are normal. INVESTIGATIONS: White blood cell count 7.6, hemoglobin 12.7. Potassium 3.0, follow up 3.4. BUN 10, creatinine 0.59. Magnesium 1.6. Blood culture from 11/20 positive for gram-positive cocci in clusters. ASSESSMENT: 1. Seizures and postictal state, improving. 2. Acute delirium tremens, improving. 3. Chronic obstructive pulmonary disease in a smoker. 4. Chronic nicotine dependence. Patient is a smoker. 5. Essential hypertension. 6. Depression, not otherwise specified. 7. 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 8. Severe hypomagnesemia secondary to alcohol use. 9. Hyponatremia secondary to alcohol use, present on admission. 10. Macrocytic anemia secondary to alcohol use. PLAN: Continue current medication and treatment plan. IV Zosyn added for positive blood cultures. Will await sensitivities. We will continue to monitor patient closely. Patient seen and examined by nurse practitioner, Tara Ling, and all elements of the case discussed with attending, Dr. Tucker.
[2016-11-22] MEDS: METOPROLOL TARTRATE 25 MG TAB PO SCH ×2 (07:58→20:35)
[2016-11-22] MEDS: LISINOPRIL 10 MG TAB PO SCH (07:58)
[2016-11-22] MEDS: MAGNESIUM OXIDE 400 MG TAB PO SCH ×4 (07:59→21:22)
[2016-11-22] MEDS: ENOXAPARIN 40 MG/0.4 ML SYRINGE SQ SCH (07:59)
[2016-11-22] MEDS: DIAZEPAM 5 MG TAB PO SCH ×3 (08:00→21:21)
--- NOTE | 2016-11-22 08:00 | PN ---
DATE OF SERVICE: 11/21/2016 Attending note: The patient was seen and examined by me. I reviewed the note of my nurse practitioner, Ms. Ling. Discussed additional findings below. This is a patient admitted with seizures, postictal state, DTs from alcohol that he confessed to the nurse. Now became febrile. Blood cultures have come back positive. I started the patient on IV Zosyn. On examination, decreased tremors. LUNGS: Decreased breath sounds. CARDIOVASCULAR: First and second sounds. PSYCH: Awake answering questions. INVESTIGATIONS: Blood cultures growing gram-positive cocci in clusters. ASSESSMENT: 1. Bacteremic with sepsis. 2. Seizures. 3. Delirium tremens, improving. PLAN: Patient was put on IV vancomycin and Zosyn. Dose of Valium to be cut back. Follow. Will cut back the dose of Valium. We will also stop patient's Remeron.
[2016-11-22] MEDS: NICOTINE 14MG/24HR PATCH TRANSDERM SCH (08:01)
[2016-11-22 08:19] LABS: Basophils % (A) 0 %; CH 37.5; CHCM 35.6; Eosinophils # (A) 0.2 k/uL (0-0.7); Eosinophils % (A) 4 %; HCT 35.6 % (39.0-53.0); HDW 2.56; HGB 12.4 gm/dL (13.0-17.5); Luc # (Auto) 0.23; Luc % (Auto) 4; Lymphocytes # (A) 0.6 k/uL (1.0-4.8); Lymphocytes % (A) 10 %; MCH 36.6 pg (25.0-35.0); MCHC 34.7 g/dL (31.0-37.0); MCV 105.6 fL (80.0-100.0); Macrocytosis Slight; Mean Platelet Volume 7.5; Monocytes # (A) 0.8 k/uL (0-1.0); Monocytes % (A) 13 %; Neutrophils # (A) 4.1 k/uL (1.3-7.7); Neutrophils % (A) 68 %; RBC 3.37 m/uL (4.30-5.90); RDW 12.1 % (11.5-15.5); WBC (Perox) 6.24
[2016-11-22 08:41] LABS: Anion Gap 12 mmol/L; Blood Urea Nitrogen 7 mg/dL (9-20); Calcium 9.3 mg/dL (8.4-10.2); Carbon Dioxide 27 mmol/L (22-30); Chloride 101 mmol/L (98-107); Glucose 112 mg/dL (74-99); Non-African American GFR(MDRD) >60 (>60 ml/min/1.73 sqM); Potassium 3.5 mmol/L (3.5-5.1); Sodium 140 mmol/L (137-145)
--- NOTE | 2016-11-22 10:17 | EEG ---
DATE OF SERVICE: 11/19/2016 INDICATIONS FOR EXAMINATION: This patient is a 36 -year-old male being evaluated for new onset seizures. AGE: 36Y EEG FINDINGS: A routine 21 channel awake digital EEG recording was accomplished utilizing the 10-20 international system with bipolar and referential montages. The background activity in the most alert resting state consists of a low to medium amplitude fairly well developed and well sustained 7-8 Hz activity over the posterior head regions. This posterior rhythm attenuates to eye opening. There is a small amount of low amplitude 18-20 Hz beta activity seen maximally over the anterior head regions. Muscle and movement artifact was observed on several occasions during the tracing. Hyperventilation was not performed. Photic stimulation at flash frequencies of 2-30 Hz produced a good symmetrical driving response. The main feature of this tracing is the occurrence on several occasions of right sided temporal sharp wave discharges lasting 2 to 3 seconds in duration. On a few occasions, generalized sharp wave was also noted. IMPRESSION: This EEG is abnormal due to the occurrence of right temporal lobe epileptiform discharge. This finding would be consistent with a seizure disorder of deep level origin. If clinically indicated, a follow-up EEG is recommended.
[2016-11-22 11:47] LABS: Vitamin B12 736 pg/mL (239-931)
[2016-11-22] MEDS: THIAMINE 100 MG TAB PO SCH ×2 (12:02→17:33)
--- NOTE | 2016-11-22 17:14 | PN ---
DATE OF SERVICE: 11/22/2016. PRESENTING COMPLAINT: Seizures. INTERVAL HISTORY: This is a patient who is status post seizure and postictal state, delirium tremens secondary to alcohol use. Today, sitting up in the bed just finishing lunch. States he feels well. Ambulatory in the room with some assistance. Tolerating his diet. Review of systems done for constitutional, cardiovascular, GI, pulmonary, neurological with relevant findings as above. Current medications include IV Keppra, Lopressor, and Zosyn. PHYSICAL EXAMINATION: VITAL SIGNS: Temperature 98.4, pulse 78, respirations 18, blood pressure 136/78, oxygen saturation 100% on room air. GENERAL APPEARANCE: Patient sitting up in bed, calm, cooperative. No noticeable tremoring. EYES: Pupils equal. Conjunctivae normal. NECK: JVD not raised. Mass not palpable. Respiratory effort normal. LUNGS: Diminished bases bilaterally. CARDIOVASCULAR: First and second sounds noted. No edema. ABDOMEN: Soft, nontender. Liver and spleen not palpable. PSYCHIATRY: Alert and oriented x3. Mood and affect normal. NEUROLOGIC: Mild tremoring noted today when patient's arms were extended in front of him. Patient is alert and oriented x3. Able to follow simple straightforward commands. INVESTIGATIONS: Hemoglobin 12.4, platelet count 215. Sodium 140, potassium 3.5, BUN 7, creatinine 0.61. Blood culture resulted from 11/20/2016. Preliminary results of coagulase-negative. Urine culture negative ASSESSMENT: 1. Bacteremia with sepsis, improving. 2. Seizures, no further seizures. 3. Delirium tremens, improving. 4. Chronic obstructive pulmonary disease in a smoker. 5. Chronic nicotine dependence. Patient is a smoker. 6. Essential hypertension. 7. Depression, not otherwise specified. 8. 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 9. Severe hypomagnesemia secondary to alcohol use, resolved. 10. Hyponatremia secondary to alcohol use, present on admission, resolved. 11. Macrocytic anemia secondary to alcohol use. PLAN: Continue current medication and treatment plan. IV Zosyn added for positive blood cultures. Per ID recommendations, Vancomycin was also added. We will continue to monitor patient closely. Patient seen and examined by nurse practitioner, Tara Ling, and all elements of the case discussed with attending, Dr. Tucker. I performed a history and physical examination of this patient and discussed the same with the dictator. I agree with the dictator's note. Any additional findings/opinions, etc. will be noted.
--- NOTE | 2016-11-22 21:18 | P.PN ---
Subjective Principal diagnosis: Seizure 36-year-old male presents to the emergency center after he was witnessed to have what appears to be seizure. Has a known history of seizure. At admission the patient was still somewhat confused. He is improved at this time. He is awake and alert sitting up in bed. Eating his dinner with no difficulties. Trouble swallowing. No choking. Modestly a good historian. He at this time is denying much discomfort. He is denying headache. Did have significant fever without chills or rigors. Denies other acute symptoms at this time. Feels better today Objective - Vital Signs Vital signs: Vital Signs Temp 98.3 F 11/22/16 14:42 Pulse 89 11/22/16 14:42 Resp 20 11/22/16 14:42 BP 109/70 11/22/16 14:42 Pulse Ox 98 11/22/16 14:42 Intake & Output 11/22/16 11/22/16 11/23/16 06:59 18:59 06:59 Intake Total 400 Balance 400 Intake: Oral 400 Other: Voiding Method Urinal Bedside Commode Urinal # Voids 1 1 # Bowel Movements 1 - Exam 36-year-old male presented for altered mental status and seizure. Now much more comfortable. HEENT: Anicteric conjunctiva are pink and moist nasal mucosa grossly intact without significant lesions, there is no thrush. Full denture upper otherwise poor dentition Neck: The neck is supple without significant lymphadenopathy or thyromegaly. Lungs: Good bilateral air entry without significant crackles or wheezing. There is no significant bronchial sounds. There is no egophony or dullness. Heart: Regular rate and rhythm with an audible S1-S2, no S3 no S4. There is no significant murmur click or rub, PMI was nondisplaced. Abdomen: Positive bowel sounds soft and nontender without palpable masses or organomegaly. There was no guarding or rebound. Extremities: The upper extremities have excellent pulses they are symmetric, no significant petechiae or telangiectasia. No splinter hemorrhages were noted. The lower extremities are free from significant edema. The peripheral pulses were 2+ and symmetric. Neuro: Awake alert oriented to person place and time. There are no acute new gross focal sensory motor deficits. Skin: Evidence of scattered acneiform type lesions on the upper part of his back into the mid back. They're nontender no expressible purulence - Labs CBC & Chem 7: 11/22/16 07:51 11/22/16 07:51 Labs: Abnormal Lab Results - Last 24 Hours (Table) 11/22/16 11/22/16 Range/Units 07:51 07:51 RBC 3.37 L (4.30-5.90) m/uL Hgb 12.4 L (13.0-17.5) gm/dL Hct 35.6 L (39.0-53.0) % MCV 105.6 H (80.0-100.0) fL MCH 36.6 H (25.0-35.0) pg Lymphocytes # 0.6 L (1.0-4.8) k/uL BUN 7 L (9-20) mg/dL Creatinine 0.61 L (0.66-1.25) mg/dL Glucose 112 H (74-99) mg/dL Microbiology - Last 24 Hours (Table) 11/21/16 18:10 Blood Culture - Preliminary Blood No Growth after 24 hours 11/20/16 17:35 Blood Culture - Preliminary Blood No Growth after 48 hours 11/18/16 13:58 Blood Culture - Preliminary Blood No Growth after 96 hours 11/18/16 09:46 Blood Culture - Preliminary Blood No Growth after 96 hours 11/20/16 18:23 Blood Culture - Final Blood 11/20/16 18:23 Blood Culture Gram Stain - Preliminary Blood Blood Culture - Preliminary Coagulase Negative Staph 11/20/16 18:30 Urine Culture - Final Urine,Voided Laboratory Results WBC 6.0 k/uL (3.8-10.6) 11/22/16 07:51 RBC 3.37 m/uL (4.30-5.90) L 11/22/16 07:51 Hgb 12.4 gm/dL (13.0-17.5) L 11/22/16 07:51 Hct 35.6 % (39.0-53.0) L 11/22/16 07:51 MCV 105.6 fL (80.0-100.0) H 11/22/16 07:51 MCH 36.6 pg (25.0-35.0) H 11/22/16 07:51 MCHC 34.7 g/dL (31.0-37.0) 11/22/16 07:51 RDW 12.1 % (11.5-15.5) 11/22/16 07:51 Plt Count 215 k/uL (150-450) 11/22/16 07:51 Neutrophils % 68 % 11/22/16 07:51 Lymphocytes % 10 % 11/22/16 07:51 Monocytes % 13 % 11/22/16 07:51 Eosinophils % 4 % 11/22/16 07:51 Basophils % 0 % 11/22/16 07:51 Neutrophils # 4.1 k/uL (1.3-7.7) 11/22/16 07:51 Lymphocytes # 0.6 k/uL (1.0-4.8) L 11/22/16 07:51 Monocytes # 0.8 k/uL (0-1.0) 11/22/16 07:51 Eosinophils # 0.2 k/uL (0-0.7) 11/22/16 07:51 Basophils # 0.0 k/uL (0-0.2) 11/22/16 07:51 Macrocytosis Slight 11/22/16 07:51 PT 12.1 sec (9.0-12.0) H 11/18/16 09:19 INR 1.2 (<1.1) 11/18/16 09:19 APTT 22.7 sec (22.0-30.0) 11/18/16 09:19 Sodium 140 mmol/L (137-145) 11/22/16 07:51 Potassium 3.5 mmol/L (3.5-5.1) 11/22/16 07:51 Chloride 101 mmol/L (98-107) 11/22/16 07:51 Carbon Dioxide 27 mmol/L (22-30) 11/22/16 07:51 Anion Gap 12 mmol/L 11/22/16 07:51 BUN 7 mg/dL (9-20) L 11/22/16 07:51 Creatinine 0.61 mg/dL (0.66-1.25) L 11/22/16 07:51 Est GFR (MDRD) Af Amer >60 (>60 ml/min/1.73 sqM) 11/22/16 07:51 Est GFR (MDRD) Non-Af >60 (>60 ml/min/1.73 sqM) 11/22/16 07:51 Glucose 112 mg/dL (74-99) H 11/22/16 07:51 POC Glucose (mg/dL) 136 mg/dL (75-99) H 11/18/16 09:21 POC Glu Women Nurse ID Yadi Mosquera 11/18/16 09:21 Plasma Lactic Acid [place] 1.4 mmol/L (0.7-2.0) 11/18/16 13:58 Calcium 9.3 mg/dL (8.4-10.2) 11/22/16 07:51 Magnesium 1.6 mg/dL (1.6-2.3) 11/21/16 07:34 Total Bilirubin 1.9 mg/dL (0.2-1.3) H 11/19/16 08:19 AST 109 U/L (17-59) H 11/19/16 08:19 ALT 68 U/L (21-72) 11/19/16 08:19 Alkaline Phosphatase 30 U/L (38-126) L 11/19/16 08:19 Total Creatine Kinase 827 U/L (55-170) H 11/18/16 09:19 CK-MB (CK-2) 11.6 ng/mL (0.0-2.4) H* 11/18/16 09:19 CK-MB (CK-2) Rel Index 1.4 11/18/16 09:19 Troponin I <0.012 ng/mL (0.000-0.034) 11/18/16 09:19 Total Protein 6.6 g/dL (6.3-8.2) 11/19/16 08:19 Albumin 4.1 g/dL (3.5-5.0) 11/19/16 08:19 Vitamin B12 736 pg/mL (239-931) 11/22/16 07:51 Urine Color Yellow 11/21/16 18:50 Urine Appearance Clear (Clear) 11/21/16 18:50 Urine pH 6.5 (5.0-8.0) 11/21/16 18:50 Ur Specific [place] 1.019 (1.001-1.035) 11/21/16 18:50 Urine Protein Trace (Negative) H 11/21/16 18:50 Urine Glucose (UA) 4+ (Negative) H 11/21/16 18:50 Urine Ketones Negative (Negative) 11/21/16 18:50 Urine Blood Trace (Negative) H 11/21/16 18:50 Urine Nitrite Negative (Negative) 11/21/16 18:50 Urine Bilirubin Negative (Negative) 11/21/16 18:50 Urine Urobilinogen <2.0 mg/dL (<2.0) 11/21/16 18:50 Ur Leukocyte Esterase Trace (Negative) H 11/21/16 18:50 Urine RBC 2 /hpf (0-5) 11/21/16 18:50 Urine WBC 5 /hpf (0-5) 11/21/16 18:50 Ur Squamous Epith Cells <1 /hpf (0-4) 11/21/16 18:50 Amorphous Sediment Occasional /hpf (None) H 11/21/16 18:50 Hyaline Casts 1 /lpf (0-2) 11/21/16 18:50 Urine Mucus Rare /hpf (None) H 11/21/16 18:50 Salicylates <1.0 mg/dL 11/18/16 09:19 Urine Opiates Screen Not Detected (NotDetected) 11/18/16 09:43 Ur Oxycodone Screen Not Detected (NotDetected) 11/18/16 09:43 Urine Methadone Screen Not Detected (NotDetected) 11/18/16 09:43 Ur Propoxyphene Screen Not Detected (NotDetected) 11/18/16 09:43 Acetaminophen <10.0 ug/mL 11/18/16 09:19 Ur Barbiturates Screen Not Detected (NotDetected) 11/18/16 09:43 U Tricyclic Antidepress Not Detected (NotDetected) 11/18/16 09:43 Levetiracetam 8.1 ug/mL (3.0-60.0) 11/20/16 07:52 Ur Phencyclidine Scrn Not Detected (NotDetected) 11/18/16 09:43 Ur Amphetamines Screen Not Detected (NotDetected) 11/18/16 09:43 U Methamphetamines Scrn Not Detected (NotDetected) 11/18/16 09:43 U Benzodiazepines Scrn Not Detected (NotDetected) 11/18/16 09:43 Urine Cocaine Screen Not Detected (NotDetected) 11/18/16 09:43 U Marijuana (THC) Screen Not Detected (NotDetected) 11/18/16 09:43 Serum Alcohol <10 mg/dL 11/18/16 09:19 Microbiology 11/21/16 18:10 Blood Blood Culture - Preliminary No Growth after 24 hours 11/20/16 17:35 Blood Blood Culture - Preliminary No Growth after 48 hours 11/18/16 13:58 Blood Blood Culture - Preliminary No Growth after 96 hours 11/18/16 09:46 Blood Blood Culture - Preliminary No Growth after 96 hours 11/20/16 18:23 Blood Blood Culture - Final 11/20/16 18:23 Blood Blood Culture Gram Stain - Preliminary 11/20/16 18:23 Blood Blood Culture - Preliminary Coagulase Negative Staph 11/20/16 18:30 Urine,Voided Urine Culture - Final Assessment and Plan (1) Fever Narrative/Plan: 28-year-old male presents to Hospital for what appears to be a seizure. His neurological activity has improved. However he developed high- grade fever. Because of his seizure there was concerns of an aspiration pneumonia and was treated with piperacillin tazobactam. It is noted patient seems to be doing considerably better today. Fevers are improved. However laboratory has resulted positive blood cultures gram-positive cocci in clusters. We will give concern to staph or MRSA infection. Consequently vancomycin therapy was added. Follow blood cultures performed and are negative so far. Lab has verified coagulase negative staph, thus Vanco is discontinued, no need for further treatment of the contaminated cultures. Patient improved and fever has resolved. May have been related to the neurological event, but concern to aspiration, as improves transition to augmentin to complete course of therapy. Status: Acute (2) Gram-positive bacteremia Status: Acute (3) Seizure Status: Acute
[2016-11-23] MEDS: VANCOMYCIN 1,250 MG in SODIUM CHLORIDE 0.9% 250 ML IVPB SCH ×2 (01:29→09:04)
[2016-11-23] MEDS: PIPERACILLIN-TAZOBACTAM 3.375 GM in DEXTROSE/WATER 1 50ML.BAG IVPB SCH ×2 (05:06→13:00)
[2016-11-23] MEDS ORDERED: VANCOMYCIN TROUGH DUE 1 EACH MISC MISCELLANE ONE (07:00)
[2016-11-23 07:43] VITALS: BP 115/77; PULSE 88; RESP 20; TEMP 97.5
[2016-11-23 08:07] LABS: Basophils % (A) 1 %; CH 36.9; CHCM 33.8; Eosinophils # (A) 0.3 k/uL (0-0.7); Eosinophils % (A) 5 %; HCT 38.1 % (39.0-53.0); HDW 2.46; HGB 12.3 gm/dL (13.0-17.5); Luc # (Auto) 0.16; Luc % (Auto) 3; Lymphocytes # (A) 0.6 k/uL (1.0-4.8); Lymphocytes % (A) 12 %; MCH 35.2 pg (25.0-35.0); MCHC 32.1 g/dL (31.0-37.0); MCV 109.6 fL (80.0-100.0); Macrocytosis Moderate; Mean Platelet Volume 7.5; Monocytes # (A) 0.5 k/uL (0-1.0); Monocytes % (A) 10 %; Neutrophils # (A) 3.7 k/uL (1.3-7.7); Neutrophils % (A) 70 %; RBC 3.48 m/uL (4.30-5.90); RDW 12.6 % (11.5-15.5); WBC 5.3 k/uL (3.8-10.6); WBC (Perox) 5.52
[2016-11-23 08:15] LABS: Anion Gap 10 mmol/L; Blood Urea Nitrogen 6 mg/dL (9-20); Calcium 9.6 mg/dL (8.4-10.2); Carbon Dioxide 31 mmol/L (22-30); Chloride 102 mmol/L (98-107); Glucose 115 mg/dL (74-99); Non-African American GFR(MDRD) >60 (>60 ml/min/1.73 sqM); Potassium 3.9 mmol/L (3.5-5.1); Sodium 143 mmol/L (137-145)
[2016-11-23] MEDS: NICOTINE 14MG/24HR PATCH TRANSDERM SCH (08:36)
[2016-11-23] MEDS: DIAZEPAM 5 MG TAB PO SCH (08:36)
[2016-11-23] MEDS: LISINOPRIL 10 MG TAB PO SCH (08:36)
[2016-11-23] MEDS: METOPROLOL TARTRATE 25 MG TAB PO SCH (08:36)
[2016-11-23] MEDS: levETIRAcetam 500 MG TAB PO SCH (08:36)
[2016-11-23] MEDS: MAGNESIUM OXIDE 400 MG TAB PO SCH ×2 (08:36→13:02)
[2016-11-23] MEDS ORDERED: DIAZEPAM 5 MG TAB PO SCH (09:00)
[2016-11-23] MEDS: ENOXAPARIN 40 MG/0.4 ML SYRINGE SQ SCH (09:04)
[2016-11-23] MEDS: THIAMINE 100 MG TAB PO SCH (11:09)
--- NOTE | 2016-11-23 14:45 | PN ---
DATE OF SERVICE: 11/22/2016 ATTENDING NOTE: This patient was examined by me on 11/22/2016. I agree with the note of my nurse practitioner, Ms. Ling. I discussed with her additional findings below. Patient is status post seizure, postictal state, DT's seen with alcoholism. Seen by Dr. Wheatley from [place]. He felt patient may have aspiration pneumonitis. Patient also had blood cultures positive which could be a contaminant. On examination, sitting up, more calm. Pulse ox 100% on room air. LUNGS: Decreased breath sounds. PSYCH: Alert and oriented x3. Tremors are much decreased. INVESTIGATIONS: Afebrile. Blood cultures are noted. ASSESSMENT: 1. Possible aspiration pneumonitis from altered mental status. Will need a short course of antibiotics. 2. Bacteremia, could be a contaminant. 3. Tonic-clonic seizures with postictal state. PLAN: Continue antibiotics right now. Will await finalization of cultures and decide antibiotics accordingly as per Dr. Wheatley.
--- NOTE | 2016-11-23 17:54 | P.PN ---
Subjective Principal diagnosis: Seizure 36-year-old male presents to the emergency center after he was witnessed to have what appears to be seizure. Has a known history of seizure. At admission the patient was still somewhat confused. He is improved at this time. He is awake and alert sitting up in bed. Eating his dinner with no difficulties. Trouble swallowing. No choking. Modestly a good historian. He at this time is denying much discomfort. He is denying headache. Did have significant fever without chills or rigors. Denies other acute symptoms at this time. Feels better today Objective - Vital Signs Vital signs: Vital Signs Temp 97.5 F L 11/23/16 07:00 Pulse 88 11/23/16 07:00 Resp 20 11/23/16 07:00 BP 115/77 11/23/16 07:00 Pulse Ox 100 11/23/16 07:00 Intake & Output 11/22/16 11/23/16 11/23/16 18:59 06:59 18:59 Intake Total 400 540 Balance 400 540 Intake: Oral 400 540 Other: Voiding Method Bedside Commode Toilet Urinal # Voids 1 1 - Exam 36-year-old male presented for altered mental status and seizure. Now much more comfortable. HEENT: Anicteric conjunctiva are pink and moist nasal mucosa grossly intact without significant lesions, there is no thrush. Full denture upper otherwise poor dentition Neck: The neck is supple without significant lymphadenopathy or thyromegaly. Lungs: Good bilateral air entry without significant crackles or wheezing. There is no significant bronchial sounds. There is no egophony or dullness. Heart: Regular rate and rhythm with an audible S1-S2, no S3 no S4. There is no significant murmur click or rub, PMI was nondisplaced. Abdomen: Positive bowel sounds soft and nontender without palpable masses or organomegaly. There was no guarding or rebound. Extremities: The upper extremities have excellent pulses they are symmetric, no significant petechiae or telangiectasia. No splinter hemorrhages were noted. The lower extremities are free from significant edema. The peripheral pulses were 2+ and symmetric. Neuro: Awake alert oriented to person place and time. There are no acute new gross focal sensory motor deficits. Skin: Evidence of scattered acneiform type lesions on the upper part of his back into the mid back. They're nontender no expressible purulence - Labs CBC & Chem 7: 11/23/16 07:47 11/23/16 07:47 Labs: Abnormal Lab Results - Last 24 Hours (Table) 11/23/16 11/23/16 Range/Units 07:47 07:47 RBC 3.48 L (4.30-5.90) m/uL Hgb 12.3 L (13.0-17.5) gm/dL Hct 38.1 L (39.0-53.0) % MCV 109.6 H (80.0-100.0) fL MCH 35.2 H (25.0-35.0) pg Lymphocytes # 0.6 L (1.0-4.8) k/uL Carbon Dioxide 31 H (22-30) mmol/L BUN 6 L (9-20) mg/dL Creatinine 0.65 L (0.66-1.25) mg/dL Glucose 115 H (74-99) mg/dL Microbiology - Last 24 Hours (Table) 11/18/16 13:58 Blood Culture - Preliminary Blood No Growth after 120 hours 11/18/16 09:46 Blood Culture - Preliminary Blood No Growth after 120 hours 11/20/16 18:23 Blood Culture Gram Stain - Final Blood Blood Culture - Final Staphylococcus epidermidis 11/21/16 18:10 Blood Culture - Preliminary Blood No Growth after 24 hours 11/20/16 17:35 Blood Culture - Preliminary Blood No Growth after 48 hours Laboratory Results WBC 5.3 k/uL (3.8-10.6) 11/23/16 07:47 RBC 3.48 m/uL (4.30-5.90) L 11/23/16 07:47 Hgb 12.3 gm/dL (13.0-17.5) L 11/23/16 07:47 Hct 38.1 % (39.0-53.0) L 11/23/16 07:47 MCV 109.6 fL (80.0-100.0) H 11/23/16 07:47 MCH 35.2 pg (25.0-35.0) H 11/23/16 07:47 MCHC 32.1 g/dL (31.0-37.0) 11/23/16 07:47 RDW 12.6 % (11.5-15.5) 11/23/16 07:47 Plt Count 271 k/uL (150-450) 11/23/16 07:47 Neutrophils % 70 % 11/23/16 07:47 Lymphocytes % 12 % 11/23/16 07:47 Monocytes % 10 % 11/23/16 07:47 Eosinophils % 5 % 11/23/16 07:47 Basophils % 1 % 11/23/16 07:47 Neutrophils # 3.7 k/uL (1.3-7.7) 11/23/16 07:47 Lymphocytes # 0.6 k/uL (1.0-4.8) L 11/23/16 07:47 Monocytes # 0.5 k/uL (0-1.0) 11/23/16 07:47 Eosinophils # 0.3 k/uL (0-0.7) 11/23/16 07:47 Basophils # 0.0 k/uL (0-0.2) 11/23/16 07:47 Macrocytosis Moderate 11/23/16 07:47 PT 12.1 sec (9.0-12.0) H 11/18/16 09:19 INR 1.2 (<1.1) 11/18/16 09:19 APTT 22.7 sec (22.0-30.0) 11/18/16 09:19 Sodium 143 mmol/L (137-145) 11/23/16 07:47 Potassium 3.9 mmol/L (3.5-5.1) 11/23/16 07:47 Chloride 102 mmol/L (98-107) 11/23/16 07:47 Carbon Dioxide 31 mmol/L (22-30) H 11/23/16 07:47 Anion Gap 10 mmol/L 11/23/16 07:47 BUN 6 mg/dL (9-20) L 11/23/16 07:47 Creatinine 0.65 mg/dL (0.66-1.25) L 11/23/16 07:47 Est GFR (MDRD) Af Amer >60 (>60 ml/min/1.73 sqM) 11/23/16 07:47 Est GFR (MDRD) Non-Af >60 (>60 ml/min/1.73 sqM) 11/23/16 07:47 Glucose 115 mg/dL (74-99) H 11/23/16 07:47 POC Glucose (mg/dL) 136 mg/dL (75-99) H 11/18/16 09:21 POC Glu Risk Prevention Engineer ID Yadi Mosquera 11/18/16 09:21 Plasma Lactic Acid [place] 1.4 mmol/L (0.7-2.0) 11/18/16 13:58 Calcium 9.6 mg/dL (8.4-10.2) 11/23/16 07:47 Magnesium 1.6 mg/dL (1.6-2.3) 11/21/16 07:34 Total Bilirubin 1.9 mg/dL (0.2-1.3) H 11/19/16 08:19 AST 109 U/L (17-59) H 11/19/16 08:19 ALT 68 U/L (21-72) 11/19/16 08:19 Alkaline Phosphatase 30 U/L (38-126) L 11/19/16 08:19 Total Creatine Kinase 827 U/L (55-170) H 11/18/16 09:19 CK-MB (CK-2) 11.6 ng/mL (0.0-2.4) H* 11/18/16 09:19 CK-MB (CK-2) Rel Index 1.4 11/18/16 09:19 Troponin I <0.012 ng/mL (0.000-0.034) 11/18/16 09:19 Total Protein 6.6 g/dL (6.3-8.2) 11/19/16 08:19 Albumin 4.1 g/dL (3.5-5.0) 11/19/16 08:19 Vitamin B12 736 pg/mL (239-931) 11/22/16 07:51 Urine Color Yellow 11/21/16 18:50 Urine Appearance Clear (Clear) 11/21/16 18:50 Urine pH 6.5 (5.0-8.0) 11/21/16 18:50 Ur Specific [place] 1.019 (1.001-1.035) 11/21/16 18:50 Urine Protein Trace (Negative) H 11/21/16 18:50 Urine Glucose (UA) 4+ (Negative) H 11/21/16 18:50 Urine Ketones Negative (Negative) 11/21/16 18:50 Urine Blood Trace (Negative) H 11/21/16 18:50 Urine Nitrite Negative (Negative) 11/21/16 18:50 Urine Bilirubin Negative (Negative) 11/21/16 18:50 Urine Urobilinogen <2.0 mg/dL (<2.0) 11/21/16 18:50 Ur Leukocyte Esterase Trace (Negative) H 11/21/16 18:50 Urine RBC 2 /hpf (0-5) 11/21/16 18:50 Urine WBC 5 /hpf (0-5) 11/21/16 18:50 Ur Squamous Epith Cells <1 /hpf (0-4) 11/21/16 18:50 Amorphous Sediment Occasional /hpf (None) H 11/21/16 18:50 Hyaline Casts 1 /lpf (0-2) 11/21/16 18:50 Urine Mucus Rare /hpf (None) H 11/21/16 18:50 Vancomycin Trough 13.9 ug/mL 11/23/16 07:47 Salicylates <1.0 mg/dL 11/18/16 09:19 Urine Opiates Screen Not Detected (NotDetected) 11/18/16 09:43 Ur Oxycodone Screen Not Detected (NotDetected) 11/18/16 09:43 Urine Methadone Screen Not Detected (NotDetected) 11/18/16 09:43 Ur Propoxyphene Screen Not Detected (NotDetected) 11/18/16 09:43 Acetaminophen <10.0 ug/mL 11/18/16 09:19 Ur Barbiturates Screen Not Detected (NotDetected) 11/18/16 09:43 U Tricyclic Antidepress Not Detected (NotDetected) 11/18/16 09:43 Levetiracetam 8.1 ug/mL (3.0-60.0) 11/20/16 07:52 Ur Phencyclidine Scrn Not Detected (NotDetected) 11/18/16 09:43 Ur Amphetamines Screen Not Detected (NotDetected) 11/18/16 09:43 U Methamphetamines Scrn Not Detected (NotDetected) 11/18/16 09:43 U Benzodiazepines Scrn Not Detected (NotDetected) 11/18/16 09:43 Urine Cocaine Screen Not Detected (NotDetected) 11/18/16 09:43 U Marijuana (THC) Screen Not Detected (NotDetected) 11/18/16 09:43 Serum Alcohol <10 mg/dL 11/18/16 09:19 Microbiology 11/18/16 13:58 Blood Blood Culture - Preliminary No Growth after 120 hours 11/18/16 09:46 Blood Blood Culture - Preliminary No Growth after 120 hours 11/20/16 18:23 Blood Blood Culture Gram Stain - Final 11/20/16 18:23 Blood Blood Culture - Final Staphylococcus epidermidis 11/21/16 18:10 Blood Blood Culture - Preliminary No Growth after 24 hours 11/20/16 17:35 Blood Blood Culture - Preliminary No Growth after 48 hours 11/20/16 18:23 Blood Blood Culture - Final 11/20/16 18:30 Urine,Voided Urine Culture - Final Assessment and Plan (1) Fever Narrative/Plan: 28-year-old male presents to Hospital for what appears to be a seizure. His neurological activity has improved. However he developed high- grade fever. Because of his seizure there was concerns of an aspiration pneumonia and was treated with piperacillin tazobactam. It is noted patient seems to be doing considerably better today. Fevers are improved. However laboratory has resulted positive blood cultures gram-positive cocci in clusters. We will give concern to staph or MRSA infection. Consequently vancomycin therapy was added. Follow blood cultures performed and are negative so far. Lab has verified coagulase negative staph, thus Vanco is discontinued, no need for further treatment of the contaminated cultures. Patient improved and fever has resolved. May have been related to the neurological event, but concern to aspiration, as improves transition to augmentin 875mg po q12 for 7 days to complete course of therapy. Status: Acute (2) Gram-positive bacteremia Status: Acute (3) Seizure Status: Acute
--- NOTE | 2016-11-24 14:46 | DS ---
DATE OF ADMISSION: 11/18/2016 DATE OF DISCHARGE: 11/23/2016 FINAL DIAGNOSES: 1. Seizure disorder, recurrent with post-ictal state. 2. Possible aspiration pneumonitis. 3. Altered consciousness. 4. Acute delirium tremens from alcoholism. 5. Chronic obstructive pulmonary disease in a smoker. 6. Chronic nicotine dependence. Patient is a smoker. 7. Essential hypertension. 8. Depression, not otherwise specified. 9. Alcoholic hepatitis. 10. Severe hypomagnesemia secondary to alcohol use. 11. Hyponatremia, hyposmolar likely related to alcohol use. 12. Macrocytic anemia, secondary to alcohol use. HOSPITAL COURSE: This patient presented with seizure activity in post-ictal state, then went into DT's. Patient did admit to taking alcohol about pint a day. Responded well to Valium and beta noble taper. Patient also spiked a fever, felt to be from aspiration pneumonitis. Patient's blood cultures were positive, but felt to be a contaminant. By the time of discharge, patient doing well. Tolerating a diet. On examination, LUNGS: Decreased breath sounds. CARDIOVASCULAR: First and second sounds normal. PSYCH: Alert and oriented x3. Mood and affect is normal. 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 Abdominal ultrasound shows some mild fatty infiltration. CONSULTATIONS: 1. Dr. Lee Ann Andres from Neurology. 2. Dr. Meléndez from Psychiatry. 3. Dr. Wheatley from Infectious Disease. DISCHARGE MEDICATIONS: 1. Zestril 10 mg p.o. daily. 2. Remeron 50 mg p.o. q.h.s. 3. Augmentin 875 one tablet p.o. q.12. 4. Valium 2 mg 3 times a day for 6 doses and then 2 mg for 4 dose, then stop. 5. Disulfiram 500 mg a day for 7 days, then 250 mg a day. 6. Lopressor 12.5 p.o. b.i.d. 7. Multivitamin 1 tablet p.o. daily. 8. Nicotine 14 mg patch. 9. Thiamine 100 mg p.o. daily. 10. Keppra 1000 mg q.12. Patient's trazodone has been discontinued. Patient was told about not to drive until further notice and seizure precautions. Follow up with Dr. Gloria Andres on 12/13/2016. Follow up with Dr. Polo on 11/28/2016.
== END 2016-11-23 15:50 | disposition home or self-care (01) | DRG 100 ==
LOC: EC 09:05 → 4MS4W 12:00
PROVIDERS: ADMIT Hospitalist; ATTEND Hospitalist
DX: G40.409 Other generalized epilepsy and epileptic syndromes, not intractable, without status epilepticus (principal); J69.0 Pneumonitis due to inhalation of food and vomit; F10.231 Alcohol dependence with withdrawal delirium; E87.1 Hypo-osmolality and hyponatremia; K70.10 Alcoholic hepatitis without ascites; E83.42 Hypomagnesemia; R13.10 Dysphagia, unspecified; J44.9 Chronic obstructive pulmonary disease, unspecified; F17.200 Nicotine dependence, unspecified, uncomplicated; I10 Essential (primary) hypertension; F32.9 Major depressive disorder, single episode, unspecified; D53.9 Nutritional anemia, unspecified; M19.91 Primary osteoarthritis, unspecified site; Z90.49 Acquired absence of other specified parts of digestive tract; Z79.899 Other long term (current) drug therapy
CPT/HCPCS: 36415; 70450; 70553; 71020; 76705; 80048; 80053; 80177; 80202; 80306; 80320; 81001; 82075; 82550; 82553; 82607; 83520; 83605; 83735; 84132; 84484; 85025; 85610; 85730; 87040; 87077; 87086; 87186; 93005; 94760; 95816; 96365; 96366; 99285

== ENCOUNTER → 2016-12-14 | Outpatient (CLI) | payer OTHER ==
[2016-12-14 16:22] LABS: Basophils % (A) 1 %; CH 36.4; CHCM 34.7; Eosinophils # (A) 0.1 k/uL (0-0.7); Eosinophils % (A) 1 %; HCT 37.2 % (39.0-53.0); HDW 2.41; HGB 12.7 gm/dL (13.0-17.5); Luc # (Auto) 0.08; Luc % (Auto) 1; Lymphocytes # (A) 0.9 k/uL (1.0-4.8); Lymphocytes % (A) 14 %; MCH 35.8 pg (25.0-35.0); MCV 105.2 fL (80.0-100.0); Macrocytosis Slight; Mean Platelet Volume 8.1; Monocytes # (A) 0.4 k/uL (0-1.0); Monocytes % (A) 5 %; Neutrophils # (A) 5.2 k/uL (1.3-7.7); Neutrophils % (A) 78 %; RBC 3.54 m/uL (4.30-5.90); RDW 13.7 % (11.5-15.5); WBC 6.6 k/uL (3.8-10.6); WBC (Perox) 6.66
[2016-12-14 16:35] LABS: ALT 76 U/L (21-72); AST 121 U/L (17-59); Alkaline Phosphatase 51 U/L (38-126); Anion Gap 22 mmol/L; Blood Urea Nitrogen 7 mg/dL (9-20); Calcium 8.4 mg/dL (8.4-10.2); Carbon Dioxide 24 mmol/L (22-30); Chloride 95 mmol/L (98-107); Creatine Kinase 1106 U/L (55-170); Glucose 84 mg/dL (74-99); Non-African American GFR(MDRD) >60 (>60 ml/min/1.73 sqM); Potassium 3.2 mmol/L (3.5-5.1); Sodium 141 mmol/L (137-145); Total Bilirubin 1.9 mg/dL (0.2-1.3); Total Protein 7.6 g/dL (6.3-8.2)
[2016-12-14 16:42] LABS: Magnesium 0.5 mg/dL (1.6-2.3)
== END | disposition home or self-care (01) ==
LOC: LABWHC1 15:57
PROVIDERS: ATTEND Family Medicine
DX: G40.909 Epilepsy, unspecified, not intractable, without status epilepticus (principal)
CPT/HCPCS: 36415; 80053; 82550; 83605; 83735; 85025

== ENCOUNTER 2017-01-30 10:59 | Inpatient (IN) | payer OTHER ==
--- NOTE | 2017-01-30 11:24 | ED ---
General Adult HPI - General Chief complaint: Recheck/Abnormal Lab/Rx Stated complaint: Sent by PCP Abnormal Labs Time Seen by Provider: 01/30/17 11:18 Source: patient, RN notes reviewed Mode of arrival: ambulatory Limitations: no limitations - History of Present Illness Initial comments: 36-year-old male presents to the emergency department with a chief complaint of abnormal lab value. Patient states that he had blood work done his doctor on when he went to have his medications refill he got a phone call today to come to the emergency department. Patient states this had something was well but he does not know what. Patient has no complaints he has no pain he has no discomfort he has no complaints at this time. Patient does admit to history of seizures.Patient denies any recent fever, chills, shortness of breath , chest pain, back pain, abdominal pain, nausea vomiting, numbness or tingling, dysuria or hematuria, constipation or diarrhea, headaches or visual changes, or any other current symptoms. - Related Data Home Medications Medication Instructions Recorded Confirmed Lisinopril [Zestril] 10 mg PO DAILY 11/18/16 01/30/17 Magnesium Oxide [Magnesium Oxide] 400 mg PO DAILY 01/30/17 01/30/17 Multivitamin [Multiple Vitamins] 1 tab PO DAILY 01/30/17 01/30/17 Potassium Chloride ER [K-Dur 20] 20 meq PO DAILY 01/30/17 01/30/17 traZODone HCL [Desyrel] 100 mg PO HS 01/30/17 01/30/17 Previous Rx's Medication Instructions Recorded levETIRAcetam [Keppra] 1,000 mg PO Q12HR #60 tab 11/23/16 Allergies Allergy/AdvReac Type Severity Reaction Status Date / Time hot sauce Allergy Swelling Uncoded 01/30/17 11:47 Review of Systems ROS Statement: Those systems with pertinent positive or pertinent negative responses have been documented in the HPI. ROS Other: All systems not noted in ROS Statement are negative. Past Medical History Past Medical History: Asthma, Hypertension, Seizure Disorder Additional Past Medical History / Comment(s): Sleeping problems, arthritis R hand History of Any Multi-Drug Resistant Organisms: None Reported Past Surgical History: Cholecystectomy Additional Past Surgical History / Comment(s): R hand fracture repair. Past Anesthesia/Blood Transfusion Reactions: No Reported Reaction Past Psychological History: Anxiety, Depression Smoking Status: Current every day smoker Past Alcohol Use History: Occasional Past Drug Use History: None Reported - Past Family History Father Family Medical History: Cancer Additional Family Medical History / Comment(s): Prostate cancer. Mother History Unknown: Yes Additional Family Medical History / Comment(s): Pt states he does not have much contact with his mother. General Exam Limitations: no limitations General appearance: alert, in no apparent distress Head exam: Present: atraumatic, normocephalic, normal inspection ENT exam: Present: normal exam, mucous membranes moist Neck exam: Present: normal inspection. Absent: tenderness, meningismus, lymphadenopathy Respiratory exam: Present: normal lung sounds bilaterally. Absent: respiratory distress, wheezes, rales, rhonchi, stridor Cardiovascular Exam: Present: regular rate, normal rhythm, normal heart sounds. Absent: systolic murmur, diastolic murmur, rubs, gallop, clicks Extremities exam: Present: normal inspection, full ROM, normal capillary refill. Absent: tenderness, pedal edema, joint swelling, calf tenderness Neurological exam: Present: alert, oriented X3 Psychiatric exam: Present: normal affect, normal mood Skin exam: Present: warm, dry, intact, normal color. Absent: rash Course Vital Signs 01/30/17 11:08 Temperature 98.0 F Pulse Rate 114 H Respiratory 16 Rate Blood Pressure 110/57 O2 Sat by Pulse 100 Oximetry Medical Decision Making - Medical Decision Making 36-year-old male presents to the emergency department with a chief complaint of concern for lab values. This time we are unclear which lab was low. At this time patient is found to be in acute kidney failure. Patient is not producing urine. Patient denies any drug or alcohol use. He does admit to nausea and vomiting over the weekend but states is only about 2 times. Patient at this time we are pending at The level he was unable to give us a urine at this time we did give him fluid hydration. We will be admitting the patient Dr. Bailey spoke with on-call physician who does agree to the admission. - Lab Data Result diagrams: 01/30/17 11:30 01/30/17 11:30 Lab Results 01/30/17 01/30/17 01/30/17 Range/Units 11:30 11:30 11:30 WBC 7.3 (3.8-10.6) k/uL RBC 3.49 L (4.30-5.90) m/uL Hgb 12.9 L (13.0-17.5) gm/dL Hct 36.9 L (39.0-53.0) % MCV 105.7 H (80.0-100.0) fL MCH 36.9 H (25.0-35.0) pg MCHC 34.9 (31.0-37.0) g/dL RDW 13.8 (11.5-15.5) % Plt Count 148 L (150-450) k/uL Neutrophils % 77 % Lymphocytes % 9 % Monocytes % 10 % Eosinophils % 2 % Basophils % 0 % Neutrophils # 5.6 (1.3-7.7) k/uL Lymphocytes # 0.6 L (1.0-4.8) k/uL Monocytes # 0.7 (0-1.0) k/uL Eosinophils # 0.1 (0-0.7) k/uL Basophils # 0.0 (0-0.2) k/uL Macrocytosis Slight Sodium 127 L (137-145) mmol/L Potassium 4.0 (3.5-5.1) mmol/L Chloride 83 L (98-107) mmol/L Carbon Dioxide 21 L (22-30) mmol/L Anion Gap 23 mmol/L BUN 74 H (9-20) mg/dL Creatinine 10.72 H* (0.66-1.25) mg/dL Est GFR (MDRD) Af Amer 7 (>60 ml/min/1.73 sqM) Est GFR (MDRD) Non-Af 5 (>60 ml/min/1.73 sqM) Glucose 173 H (74-99) mg/dL Calcium 9.0 (8.4-10.2) mg/dL Phosphorus 6.9 H (2.5-4.5) mg/dL Magnesium 1.0 L* (1.6-2.3) mg/dL Total Bilirubin 1.1 (0.2-1.3) mg/dL AST 45 (17-59) U/L ALT 56 (21-72) U/L Alkaline Phosphatase 28 L (38-126) U/L Creatine Kinase (55-170) U/L Total Protein 7.4 (6.3-8.2) g/dL Albumin 4.5 (3.5-5.0) g/dL 01/30/17 Range/Units 11:35 WBC (3.8-10.6) k/uL RBC (4.30-5.90) m/uL Hgb (13.0-17.5) gm/dL Hct (39.0-53.0) % MCV (80.0-100.0) fL MCH (25.0-35.0) pg MCHC (31.0-37.0) g/dL RDW (11.5-15.5) % Plt Count (150-450) k/uL Neutrophils % % Lymphocytes % % Monocytes % % Eosinophils % % Basophils % % Neutrophils # (1.3-7.7) k/uL Lymphocytes # (1.0-4.8) k/uL Monocytes # (0-1.0) k/uL Eosinophils # (0-0.7) k/uL Basophils # (0-0.2) k/uL Macrocytosis Sodium (137-145) mmol/L Potassium (3.5-5.1) mmol/L Chloride (98-107) mmol/L Carbon Dioxide (22-30) mmol/L Anion Gap mmol/L BUN (9-20) mg/dL Creatinine (0.66-1.25) mg/dL Est GFR (MDRD) Af Amer (>60 ml/min/1.73 sqM) Est GFR (MDRD) Non-Af (>60 ml/min/1.73 sqM) Glucose (74-99) mg/dL Calcium (8.4-10.2) mg/dL Phosphorus (2.5-4.5) mg/dL Magnesium (1.6-2.3) mg/dL Total Bilirubin (0.2-1.3) mg/dL AST (17-59) U/L ALT (21-72) U/L Alkaline Phosphatase (38-126) U/L Creatine Kinase 160 (55-170) U/L Total Protein (6.3-8.2) g/dL Albumin (3.5-5.0) g/dL - Radiology Data Radiology results: report reviewed, image reviewed Disposition Clinical Impression: Acute kidney failure, Hypomagnesemia, Anemia, Hyponatremia Disposition: ADMITTED IP TO THIS HOSP Condition: Stable Referrals: Vel Polo MD [Primary Care Provider] - 1-2 days Time of Disposition: 13:30 Decision Date: 01/30/17 Decision Time: 13:30
[2017-01-30 11:48] LABS: Basophils % (A) 0 %; Eosinophils # (A) 0.1 k/uL (0-0.7); Eosinophils % (A) 2 %; HCT 36.9 % (39.0-53.0); HDW 2.25; HGB 12.9 gm/dL (13.0-17.5); Luc # (Auto) 0.16; Luc % (Auto) 2; Lymphocytes # (A) 0.6 k/uL (1.0-4.8); Lymphocytes % (A) 9 %; MCH 36.9 pg (25.0-35.0); MCHC 34.9 g/dL (31.0-37.0); MCV 105.7 fL (80.0-100.0); Macrocytosis Slight; Mean Platelet Volume 8.9; Monocytes # (A) 0.7 k/uL (0-1.0); Monocytes % (A) 10 %; Neutrophils # (A) 5.6 k/uL (1.3-7.7); Neutrophils % (A) 77 %; RBC 3.49 m/uL (4.30-5.90); RDW 13.8 % (11.5-15.5); WBC 7.3 k/uL (3.8-10.6); WBC (Perox) 7.13
[2017-01-30 12:03] LABS: Total Bilirubin 1.1 mg/dL (0.2-1.3); Total Protein 7.4 g/dL (6.3-8.2)
[2017-01-30 12:21] LABS: Phosphorous 6.9 mg/dL (2.5-4.5)
--- NOTE | 2017-01-30 13:18 | US ---
EXAMINATION TYPE: US kidneys/renal and bladder DATE OF EXAM: 01/30/2017 COMPARISON: US 11/19/2016 CLINICAL HISTORY: Pain. abnormal blood work EXAM MEASUREMENTS: Right Kidney: 11.5 x 5.8 x 4.7 cm Left Kidney: 12.7 x 5.5 x 4.8 cm Post Void Residual Volume: mL Right Kidney: wnl Left Kidney: wnl Bladder: empty Bilateral Jets seen: empty bladder Normal Post Void Residual: Not done. There is no evidence for hydronephrosis at this point in time. No nephrolithiasis is seen. No alesha s are identified. The urinary bladder is anechoic. Bilateral ureteral jets are seen. IMPRESSION: No evidence of nephrolithiasis or hydronephrosis. Unremarkable examination.
[2017-01-30] MEDS ORDERED: NALOXONE 0.4 MG/ML 1 ML VIAL IV PRN (13:31)
[2017-01-30] MEDS: SODIUM CHLORIDE 0.9% 1,000 ML IV SCH (15:08)
[2017-01-30] MEDS: MAGNESIUM SULFATE-D5W PMX 1 GM in DEXTROSE/WATER 1 100ML.BAG IVPB SCH ×2 (15:10→17:37)
[2017-01-30] MEDS ORDERED: ACETAMINOPHEN TAB 500 MG TAB PO PRN (18:04)
[2017-01-30] MEDS ORDERED: ALPRAZolam 0.25 MG TAB PO PRN (18:04)
[2017-01-30] MEDS ORDERED: HYDROmorphone 1 MG/ML 1 ML SYRINGE IVP PRN (18:04)
[2017-01-30] MEDS ORDERED: HYDROcodone/APAP 5-325MG 1 EACH TAB PO PRN (18:04)
[2017-01-30] MEDS ORDERED: TEMAZEPAM 15 MG CAP PO PRN (18:04)
[2017-01-30] MEDS ORDERED: LORazepam 0.5 MG TAB PO PRN (18:04)
[2017-01-30 18:53] LABS: Amorphous Sediment,Urine Moderate /hpf; Appearance,Urine Cloudy (Clear); Bilirubin,Urine 1+ (Negative); Glucose,Urine (UA) Trace (Negative); Ketones,Urine Negative (Negative); Leukocyte Esterase,Urine Negative (Negative); Mucus,Urine Occasional /hpf; Nitrite,Urine Negative (Negative); Particle Count 14778; Protein,Urine 1+ (Negative); RBC,Urine 1 /hpf (0-5); Squamous Epithelial Cell,Urine 1 /hpf (0-4); UA Billing (MACRO vs. MICRO) MICRO; WBC,Urine 5 /hpf (0-5)
[2017-01-30] MEDS: HEPARIN SODIUM,PORCINE 5,000 UNIT/ML 1 ML VIAL SQ SCH (20:21)
[2017-01-30] MEDS: traZODone HCL 100 MG TAB PO SCH (20:22)
[2017-01-30] MEDS: levETIRAcetam 500 MG TAB PO SCH (20:22)
[2017-01-30] MEDS ORDERED: diphenhydrAMINE 50 MG/ML 1 ML VIAL IVP ONE (22:24)
[2017-01-30] MEDS ORDERED: FAMOTIDINE 20 MG/2 ML VIAL IV STA (22:24)
[2017-01-30] MEDS ORDERED: methylPREDNISolone SOD SUCCI 125 MG/2 ML VIAL IV STA (22:25)
--- NOTE | 2017-01-30 23:47 | HP ---
DATE OF SERVICE: 01/30/2017 CHIEF COMPLAINT: Abnormal labs. HISTORY OF PRESENT ILLNESS: This 36-year-old gentleman with a past medical history of multiple medical problems, including asthma, seizure disorder, sleep apnea, history of anxiety, depression, being followed by Dr. Polo in the outpatient setting, was having nausea and vomiting which lasted 2 to 3 days about 3 to 4 days ago. The patient went to the doctor's office apparently for medication refill. Repeat labs were recommended. The patient was found to have elevated creatinine. The patient was admitted to [facility] for further evaluation and treatment. His creatinine was found to be 10.72 and the baseline creatinine was 0.63 on 12/14/2016, indicating significant acute renal failure. Sodium was 127. The patient also has hypomagnesemia. The patient apparently has a history of alcohol previously, but currently he is denying alcohol at this time except for occasional intake. There is no history of any fever, rigor or chills. No history of headache, loss of consciousness, seizures. PAST MEDICAL HISTORY: 1. History of asthma. 2. Hypertension. 3. DJD. 4. Seizure disorder. Medications prior to admission include: 1. Desyrel 100 mg at bedtime. 2. Magnesium oxide 400 daily. 3. Multivitamins 1 p.o. daily. 4. Zestril 10 mg daily. 5. Keppra 1000 mg b.i.d. 6. K-Dur 20 mEq p.o. daily. ALLERGIES: HOT SAUCE. FAMILY HISTORY: History of prostate cancer. SOCIAL HISTORY: History of smoking. No history of alcohol intake. REVIEW OF SYSTEMS: ENT: No diminished hearing. No diminished vision. CARVIOVASCULAR SYSTEM: No angina, palpitations. RESPIRATORY SYSTEM: As mentioned earlier. GI: No nausea, vomiting. : As mentioned earlier. NERVOUS SYSTEM: No numbness, weakness. ALLERGY/IMMUNOLOGY: No asthma, hayfever. MUSCULOSKELETAL: As mentioned earlier. HEMATOLOGY/ONCOLOGY: No history of anemia. ENDOCRINE: No history of diabetes, hypothyroidism. CONSTITUTIONAL: As mentioned earlier. DERMATOLOGY: Negative. RHEUMATOLOGY: Negative. PSYCHIATRY: As mentioned earlier. PHYSICAL EXAM: Patient is alert and oriented x3. Pulse is 84, blood pressure 114 /66, respiration 16, temperature 98 degrees, pulse ox 97% on room air. HEENT: Conjunctivae normal. NECK: No jugular venous distention. CARDIOVASCULAR: S1, S2 muffled. RESPIRATORY: Breath sounds diminished at the bases. A few scattered rhonchi and crackles. ABDOMEN: Soft. Non-tender. No mass palpable. LEGS: No edema. No swelling. NERVOUS SYSTEM: Higher functions as mentioned earlier. Moves all 4 limbs. No focal motor or sensory deficit. LYMPHATICS: No lymph node palpable in neck, axillae or groin. SKIN: No ulcer, rash, bleeding. LABS: WBC 7.3, hemoglobin 12.9, MCV 105.7. Sodium 127. Creatinine 10.72. Magnesium 1. ASSESSMENT: 1. Acute renal failure, possibly prerenal and acute tubular necrosis. 2. Hyponatremia. 3. Hypomagnesemia. 4. Anemia, macrocytic. 5. History of asthma. 6. Hypertension. 7. History of seizure disorder. 8. Anxiety. 9. Depression. RECOMMENDATIONS AND DISCUSSION: In this 36-year-old gentleman who presented with multiple complex medical issues, we will monitor the patient closely, continue the current medications, continue with symptomatic treatment. Will initiate IV fluids. We will repeat the labs on a serial basis. Otherwise, avoid nephrotoxic medications. Will repeat a urine analysis. Abdomen and bladder ultrasound was done to rule out the possibility of any post-renal factors. No evidence of nephrolithiasis or hydronephrosis was noted at this time. Symptomatic treatment will be provided. Home medications were noted. Will hold the potassium as well as the lisinopril. Keppra will be continued. I would also recommend Ativan p.r.n. for anxiety. Smoking cessation has been recommended. DVT prophylaxis and baseline medications for pain. The overall prognosis is guarded because of multiple complex medical issues. Further recommendations to follow. MTDD
[2017-01-31] MEDS: SODIUM CHLORIDE 0.9% 1,000 ML IV SCH ×3 (05:37→17:41)
[2017-01-31] MEDS: PANTOPRAZOLE 40 MG TABLET PO SCH (06:35)
[2017-01-31 06:56] LABS: Basophils % (A) 0 %; CH 37.6; CHCM 35.6; Eosinophils % (A) 1 %; HCT 38.7 % (39.0-53.0); HDW 2.28; HGB 13.1 gm/dL (13.0-17.5); Luc # (Auto) 0.04; Luc % (Auto) 2; Lymphocytes # (A) 0.3 k/uL (1.0-4.8); Lymphocytes % (A) 9 %; MCH 35.8 pg (25.0-35.0); MCHC 33.9 g/dL (31.0-37.0); MCV 105.8 fL (80.0-100.0); Macrocytosis Slight; Mean Platelet Volume 8.6; Monocytes # (A) 0.1 k/uL (0-1.0); Monocytes % (A) 3 %; Neutrophils # (A) 2.3 k/uL (1.3-7.7); Neutrophils % (A) 85 %; RBC 3.66 m/uL (4.30-5.90); RDW 13.8 % (11.5-15.5); WBC 2.7 k/uL (3.8-10.6); WBC (Perox) 2.69
[2017-01-31 07:05] LABS: Calcium 9.3 mg/dL (8.4-10.2); Magnesium 1.8 mg/dL (1.6-2.3); Potassium 5.2 mmol/L (3.5-5.1)
[2017-01-31] MEDS: NICOTINE 14MG/24HR PATCH TRANSDERM SCH (08:14)
[2017-01-31] MEDS: MAGNESIUM OXIDE 400 MG TAB PO SCH (08:14)
[2017-01-31] MEDS: HEPARIN SODIUM,PORCINE 5,000 UNIT/ML 1 ML VIAL SQ SCH ×2 (08:14→21:51)
[2017-01-31] MEDS: levETIRAcetam 500 MG TAB PO SCH (08:14)
[2017-01-31] MEDS: methylPREDNISolone SOD SUCCI 40 MG/ML 1 ML VIAL IV SCH ×2 (08:14→21:51)
[2017-01-31] MEDS: MULTIVITAMINS, THERA 1 EACH TAB PO SCH (08:14)
--- NOTE | 2017-01-31 11:11 | P.NPCON ---
History of Present Illness - Reason for Consult acute renal failure - History of Present Illness Reason for consultation: Acute kidney injury History of present illness: Patient is a 36-year-old male seen in renal consultation for acute kidney injury. Patient presented creatinine is 1 and was elevated at 10.7 on admission. It is down to 6.2 today with IV fluids. Patient presented to the hospital after he had blood work done and was told come to the ER for acute renal failure. Patient states he's been having persistent nausea and vomiting for the last few months but it got worse over the last few days. States he's been drinking a lot of water to keep himself hydrated. He has a minimal to keep much food down. Denies diarrhea. Denies chest pain or shortness of breath. Admits to good urine output. No hematuria or dysuria. Blood pressures were also on the lower side in the systolic 90s on admission but are now improving with IV hydration. Denies any family history of renal disease. Denies use of NSAIDs. No fever or chills. Vital signs are stable. General: The patient appeared well nourished and normally developed. HEENT: Head exam is unremarkable. Neck is without jugular venous distension. LUNGS: Lungs are clear to auscultation and percussion. Breath sounds decreased. HEART: Rate and Rhythm are regular. First and second heart sounds normal. No murmurs, rubs or gallops. ABDOMEN: Abdominal exam reveals normal bowel sounds. Non-tender and non- distended. No evidence of peritonitis. EXTREMITITES: No clubbing, cyanosis, or edema. Past Medical History Past Medical History: Asthma, Hypertension, Osteoarthritis (OA), Seizure Disorder, Sleep Apnea/CPAP/BIPAP Additional Past Medical History / Comment(s): Sleeping problems, arthritis R hand, not using cpap. last seizure in december 2016 History of Any Multi-Drug Resistant Organisms: None Reported Past Surgical History: Cholecystectomy Additional Past Surgical History / Comment(s): R hand fracture repair. Past Anesthesia/Blood Transfusion Reactions: No Reported Reaction Smoking Status: Current every day smoker - Past Family History Father Family Medical History: Cancer Additional Family Medical History / Comment(s): Prostate cancer. Mother History Unknown: Yes Additional Family Medical History / Comment(s): Pt states he does not have much contact with his mother. Medications and Allergies Home Medications Medication Instructions Recorded Confirmed Type Lisinopril [Zestril] 10 mg PO DAILY 11/18/16 01/30/17 History Magnesium Oxide [Magnesium Oxide] 400 mg PO DAILY 01/30/17 01/30/17 History Multivitamin [Multiple Vitamins] 1 tab PO DAILY 01/30/17 01/30/17 History Potassium Chloride ER [K-Dur 20] 20 meq PO DAILY 01/30/17 01/30/17 History traZODone HCL [Desyrel] 100 mg PO HS 01/30/17 01/30/17 History Allergies Allergy/AdvReac Type Severity Reaction Status Date / Time hot sauce Allergy Swelling Uncoded 01/30/17 11:47 Physical Exam Vitals: Vital Signs Temp Pulse Pulse Resp BP BP Pulse Ox 01/31/17 08:15 97.6 F 76 18 114/66 99 01/31/17 03:57 98.0 F 77 18 119/72 98 01/31/17 00:00 98.3 F 74 17 98/59 100 01/30/17 20:00 98.3 F 84 16 103/70 100 01/30/17 16:55 84 16 01/30/17 16:53 98.0 F 84 16 114/66 97 01/30/17 15:16 80 16 100/56 100 01/30/17 13:31 83 16 97/57 98 01/30/17 11:08 98.0 F 114 H 16 110/57 100 Intake and Output 01/30/17 01/31/17 01/31/17 22:59 06:59 14:59 Intake Total 840 700 240 Output Total 250 1000 1000 Balance 590 -300 -760 Intake: IV 700 Sodium Chloride 0.9% 1, 700 000 ml @ 100 mls/hr IV . Q10H [facility] Rx#:[id number] Intake, IV Titration 450 Amount Magnesium Sulfate-D5w Pmx 200 1 gm In Dextrose/Water 1 100ml.bag @ 100 mls/hr IVPB Q1H [facility] Rx#: [id number] Sodium Chloride 0.9% 1, 250 000 ml @ 100 mls/hr IV . Q10H [facility] Rx#:[id number] Oral 390 240 Output: Urine 250 1000 1000 Other: Voiding Method Urinal Urinal Urinal # Voids 1 1 1 Weight 67 kg Results - Lab Results Most recent lab results Calcium 9.3 mg/dL (8.4-10.2) 01/31/17 06:37 Phosphorus 6.9 mg/dL (2.5-4.5) H 01/30/17 11:30 Magnesium 1.8 mg/dL (1.6-2.3) 01/31/17 06:37 01/31/17 06:39 01/31/17 06:37 Assessment and Plan Plan: Assessment: #1. Nonoliguric acute kidney injury mostly prerenal secondary to severe intravascular volume depletion from poor oral intake and vomiting. Further worsened with the use of christianne inhibitors. Creatinine was 10.7 on admission and is down to 6.2 today. No evidence of hydronephrosis. #2. Hyponatremia. This is due to low solute intake in the setting of excess water intake. Sodium level 124 this morning. #3. Metabolic acidosis secondary to acute kidney injury. #4. Hypomagnesemia to poor nutritional status. I don't see any diuretics and his home medications. Also not on a proton pump inhibitor. Does have history of alcohol abuse however states he hasn't been drinking much recently. Plan: Maintain normal saline to be run at 100 mL an hour. Start oral sodium bicarbonate supplementation. Encouraged oral intake. Low potassium and a fluid restricted diet. Continue to hold CHRISTIANNE inhibitor for now. Check cortisol level. Proteinuria noted on urinalysis. He may have underlying diabetes as his blood sugars are high. Will repeat urinalysis and quantify proteinuria once GFR returns to baseline. Repeat electrolytes in the morning. Check urine sodium, serum and urine osmolality. Continue Mag-Ox. Thank you for the consultation. I will continue to follow patient with you during his hospital stay.
[2017-01-31 11:35] LABS: Glucose,Whole Blood 255 mg/dL (75-99)
[2017-01-31] MEDS: SODIUM BICARBONATE TAB 650 MG TAB PO SCH ×2 (12:24→21:52)
[2017-01-31] MEDS: INSULIN LISPRO (humaLOG) 300 UNIT/3 ML VIAL SQ SCH ×3 (12:24→21:50)
--- NOTE | 2017-01-31 16:51 | P.PN ---
Subjective Date of service 01/31/2017. Personal being dictated for Dr. Martino. Interval history: This a 36-year-old gentleman admitted with acute renal failure , hyponatremia, hypomagnesemia, and multiple other medical issues. Maintained on IV fluid hydration, Keppra,prn Ativan. Blood pressures improved. Evaluated by nephrology with recommendations noted. Last night developed questionable upper lip swelling without airway involvement or further facial involvement, unable to relate it to anything, possible anaphylaxis. Treated with IV steroids and much improved. Elevated blood sugars, steroid-induced. Hemoglobin A1c 5. Good diet intake with no nausea vomiting. Sodium decreased to 124. Metabolic acidosis, oral sodium bicarb initiated. Magnesium significantly improved, with supplementation. Review of systems: HEENT: Denies headache or focal deficits. Denies any dizziness or lightheadedness. Respiratory: Denies any increased shortness of breath. Cardiac: Denies any chest pain, palpitations. GI: Denies any nausea, vomiting, or diarrhea. Denies any abdominal tenderness. : Denies any dysuria. Psychiatry: Denies any anxiety or depression. Active Medications Acetaminophen (Tylenol Tab) 500 mg PO Q6HR PRN PRN Reason: Fever and/ or Pain Hydrocodone Bitart/Acetaminophen ([place] 5-325) 1 each PO Q6HR PRN PRN Reason: Pain Heparin Sodium (Porcine) (Heparin) 5,000 unit SQ Q12HR [facility] Last Admin: 01/31/17 08:14 Dose: 5,000 unit Hydromorphone HCl (Dilaudid) 0.5 mg IVP Q6HR PRN PRN Reason: Severe Pain Sodium Chloride (Saline 0.9%) 1,000 mls @ 100 mls/hr IV .Q10H [facility] Last Admin: 01/31/17 08:15 Dose: 100 mls/hr Insulin Human Lispro (Humalog) 0 unit SQ ACHS [facility] PRN Reason: Protocol Last Admin: 01/31/17 12:24 Dose: 4 unit Levetiracetam (Keppra) 1,000 mg PO Q12HR [facility] Last Admin: 01/31/17 08:14 Dose: 1,000 mg Lorazepam (Ativan) 0.5 mg PO Q4HR PRN PRN Reason: Anxiety Magnesium Oxide (Mag-Ox) 400 mg PO 1200 [facility] Last Admin: 08/15/17 08:14 Dose: 400 mg Methylprednisolone Sodium Succinate (Solu-Medrol) 40 mg IV Q12HR [facility] Last Admin: 01/31/17 08:14 Dose: 40 mg Multivitamins (Theragran) 1 each PO 1200 [facility] Last Admin: 01/31/17 08:14 Dose: 1 each Naloxone HCl (Narcan) 0.2 mg IV Q2M PRN PRN Reason: Opioid Reversal Nicotine (Habitrol 14mg/24hr Patch) 1 patch TRANSDERM DAILY [facility] Last Admin: 01/31/17 08:14 Dose: 1 patch Pantoprazole Sodium (Protonix) 40 mg PO AC-BRKFST [facility] Last Admin: 01/31/17 06:35 Dose: 40 mg Sodium Bicarbonate (Sodium Bicarbonate Tab) 650 mg PO BID [facility] Last Admin: 01/31/17 12:24 Dose: 650 mg Temazepam (Restoril) 15 mg PO HS PRN PRN Reason: Insomnia Trazodone HCl (Desyrel) 100 mg PO HS [facility] Last Admin: 01/30/17 20:22 Dose: 100 mg Objective - Vital Signs Vital signs: Vital Signs Temp 97.7 F 01/31/17 11:30 Pulse 74 01/31/17 11:30 Resp 18 01/31/17 11:30 BP 139/93 01/31/17 11:30 Pulse Ox 99 01/31/17 11:30 Intake & Output 01/30/17 01/31/17 01/31/17 18:59 06:59 18:59 Intake Total 840 700 480 Output Total 250 1000 2750 Balance 590 -300 -2270 Weight 66.224 kg 67 kg Intake: IV 700 Sodium Chloride 0.9% 1, 700 000 ml @ 100 mls/hr IV . Q10H [facility] Rx#:[id number] Intake, IV Titration 450 Amount Magnesium Sulfate-D5w Pmx 200 1 gm In Dextrose/Water 1 100ml.bag @ 100 mls/hr IVPB Q1H [facility] Rx#: [id number] Sodium Chloride 0.9% 1, 250 000 ml @ 100 mls/hr IV . Q10H [facility] Rx#:[id number] Oral 390 480 Output: Urine 250 1000 2750 Other: Voiding Method Urinal Urinal Urinal # Voids 1 1 1 - Exam PHYSICAL EXAM: VITAL SIGNS: As above GENERAL: [Sitting up in bed, mildly anxious] HEENT: [Pupils equal conjunctiva normal. Oral mucosa moist] NECK: [Supple, no JVD] RESPIRATORY EFFORT:[ Normal] LUNGS: [Essentially clear, bilateral bases diminished him a no wheezes rhonchi or crackles] CARDIOVASCULAR[ regular S1 and S2, no murmurs rubs or gallops] GI: [Abdomen soft, nontender, positive bowel sounds.] PSYCH: [Alert and oriented -3, mood and affect normal.] NEURO: Focal deficits - Labs CBC & Chem 7: 01/31/17 06:39 01/31/17 06:37 Labs: Abnormal Lab Results - Last 24 Hours (Table) 01/30/17 01/30/17 01/31/17 Range/Units 11:35 18:20 06:37 WBC (3.8-10.6) k/uL RBC (4.30-5.90) m/uL Hct (39.0-53.0) % MCV (80.0-100.0) fL MCH (25.0-35.0) pg Lymphocytes # (1.0-4.8) k/uL Sodium 124 L (137-145) mmol/L Potassium 5.2 H (3.5-5.1) mmol/L Chloride 88 L (98-107) mmol/L Carbon Dioxide 19 L (22-30) mmol/L BUN 72 H (9-20) mg/dL Creatinine 6.20 H* (0.66-1.25) mg/dL Glucose 274 H (74-99) mg/dL POC Glucose (mg/dL) (75-99) mg/dL Urine Protein 1+ H (Negative) Urine Glucose (UA) Trace H (Negative) Urine Blood Small H (Negative) Urine Bilirubin 1+ H (Negative) Amorphous Sediment Moderate H (None) /hpf Hyaline Casts 27 H (0-2) /lpf Urine Mucus Occasional H (None) /hpf Ur Random Sodium (30-90) mmol/L Levetiracetam 84.9 H (3.0-60.0) ug/mL 01/31/17 01/31/17 01/31/17 Range/Units 06:39 11:33 14:40 WBC 2.7 L (3.8-10.6) k/uL RBC 3.66 L (4.30-5.90) m/uL Hct 38.7 L (39.0-53.0) % MCV 105.8 H (80.0-100.0) fL MCH 35.8 H (25.0-35.0) pg Lymphocytes # 0.3 L (1.0-4.8) k/uL Sodium (137-145) mmol/L Potassium (3.5-5.1) mmol/L Chloride (98-107) mmol/L Carbon Dioxide (22-30) mmol/L BUN (9-20) mg/dL Creatinine (0.66-1.25) mg/dL Glucose (74-99) mg/dL POC Glucose (mg/dL) 255 H (75-99) mg/dL Urine Protein (Negative) Urine Glucose (UA) (Negative) Urine Blood (Negative) Urine Bilirubin (Negative) Amorphous Sediment (None) /hpf Hyaline Casts (0-2) /lpf Urine Mucus (None) /hpf Ur Random Sodium 18 L (30-90) mmol/L Levetiracetam (3.0-60.0) ug/mL Assessment and Plan Plan: 1. Acute renal failure, possibly prerenal and acute tubular necrosis. 2. [ Acute hyponatremia]. 3. [ Acute hypomagnesemia]. 4. [ Anemia, macrocytic]. 5. [ Seizure disorder, history of]. Plan: Continue on current medication regime ,monitoring and symptomatic treatment. Close monitoring of renal function, electrolytes with repeat labs ordered for a.m. potassium mildly elevated today at 5.2. Continue on low potassium diet/renal diet with fluid restrictions. Follow closely with nephrology. Transfer off the telemetry unit to [facility] with remote telemetry. The impression and plan of care has been dictated as directed. : I performed a H&P examination of this patient and discussed the same with the dictator. I agree with the dictator's note. Any additional findings/opinions/ etc. will be noted.
[2017-01-31 17:15] LABS: Glucose,Whole Blood 179 mg/dL (75-99)
[2017-01-31 21:22] LABS: Glucose,Whole Blood 122 mg/dL (75-99)
[2017-01-31] MEDS: traZODone HCL 100 MG TAB PO SCH (21:52)
--- NOTE | 2017-01-31 22:07 | P.CNNES ---
History of Present Illness Consult date: 01/31/17 History of Present Illness: The patient is a 36-year-old man with history of seizure disorder. Neurology is requested to see the patient regarding seizures. The patient has multiple medical problems and was admitted to the hospital with abnormal labs. He had an elevated creatinine level of 10.7 and he was admitted with acute renal failure. He also had low sodium and magnesium levels. He has a history of alcohol abuse. States he is not had any breakthrough seizures recently. He has been taking his medication without any side effects. He states he's been feeling well and had no signs of a renal failure that he knew of. The patient was admitted with renal failure hyponatremia hypomagnesemia anemia asthma Review of Systems Constitutional: Denies chills, Denies fever Eyes: denies blurred vision, denies pain Ears, nose, mouth and throat: Denies headache, Denies sore throat Cardiovascular: Denies chest pain, Denies shortness of breath Respiratory: Denies cough Gastrointestinal: Denies abdominal pain, Denies diarrhea, Denies nausea, Denies vomiting Musculoskeletal: Denies myalgias Past Medical History Past Medical History: Asthma, Hypertension, Osteoarthritis (OA), Seizure Disorder, Sleep Apnea/CPAP/BIPAP Additional Past Medical History / Comment(s): Sleeping problems, arthritis R hand, not using cpap. last seizure in december 2016 History of Any Multi-Drug Resistant Organisms: None Reported Past Surgical History: Cholecystectomy Additional Past Surgical History / Comment(s): R hand fracture repair. Past Anesthesia/Blood Transfusion Reactions: No Reported Reaction Smoking Status: Current every day smoker - Past Family History Father Family Medical History: Cancer Additional Family Medical History / Comment(s): Prostate cancer. Mother History Unknown: Yes Additional Family Medical History / Comment(s): Pt states he does not have much contact with his mother. Medications and Allergies Home Medications Medication Instructions Recorded Confirmed Type Lisinopril [Zestril] 10 mg PO DAILY 11/18/16 01/30/17 History Magnesium Oxide [Magnesium Oxide] 400 mg PO DAILY 01/30/17 01/30/17 History Multivitamin [Multiple Vitamins] 1 tab PO DAILY 01/30/17 01/30/17 History Potassium Chloride ER [K-Dur 20] 20 meq PO DAILY 01/30/17 01/30/17 History traZODone HCL [Desyrel] 100 mg PO HS 01/30/17 01/30/17 History Allergies Allergy/AdvReac Type Severity Reaction Status Date / Time hot sauce Allergy Swelling Uncoded 01/30/17 11:47 Physical Examination - Vital Signs Vital Signs: Vital Signs Temp Pulse Resp BP Pulse Ox 01/31/17 15:30 99 F 72 18 159/95 99 01/31/17 11:30 97.7 F 74 18 139/93 99 01/31/17 08:15 97.6 F 76 18 114/66 99 01/31/17 03:57 98.0 F 77 18 119/72 98 01/31/17 00:00 98.3 F 74 17 98/59 100 Intake and Output 01/31/17 01/31/17 01/31/17 06:59 14:59 22:59 Intake Total 700 480 800 Output Total 1000 2000 1600 Balance -300 -1520 -800 Intake: IV 700 800 Sodium Chloride 0.9% 1, 700 800 000 ml @ 100 mls/hr IV . Q10H BHARATH Rx#:[id number] Oral 480 Output: Urine 1000 1999 1600 Other: Voiding Method Urinal Urinal Urinal # Voids 1 1 1 Weight 67 kg - Constitutional General appearance: average body habitus - EENT EENT: hearing intact, vision intact - Respiratory Respiratory: lungs clear - Cardiovascular Cardiovascular: regular rate, normal S1, normal S2 - Integumentary Integumentary: normal - Neurologic Mental status he was awake alert and oriented he answered questions appropriately there is no a aphasia or dysarthria Cranial nerve examination: PERRL, EOMI, VFF, V1/V2/V3 grossly intact, face symmetric, tongue midline Sensorimotor examination: intact Detailed motor examination: grossly full strength in all extremities Reflex and gait examination: intact - Psychiatric Psychiatric: mood/affect appropriate Results - Laboratory Findings CBC and BMP: 01/31/17 06:39 01/31/17 06:37 Abnormal Lab Findings: Abnormal Labs 01/30/17 01/30/17 01/30/17 11:30 11:30 11:30 WBC RBC 3.49 L Hgb 12.9 L Hct 36.9 L MCV 105.7 H MCH 36.9 H Plt Count 148 L Lymphocytes # 0.6 L Sodium 127 L Potassium Chloride 83 L Carbon Dioxide 21 L BUN 74 H Creatinine 10.72 H* Glucose 173 H POC Glucose (mg/dL) Phosphorus 6.9 H Magnesium 1.0 L* Alkaline Phosphatase 28 L Urine Protein Urine Glucose (UA) Urine Blood Urine Bilirubin Amorphous Sediment Hyaline Casts Urine Mucus Ur Random Sodium Levetiracetam 01/30/17 01/30/17 01/31/17 11:35 18:20 06:37 WBC RBC Hgb Hct MCV MCH Plt Count Lymphocytes # Sodium 124 L Potassium 5.2 H Chloride 88 L Carbon Dioxide 19 L BUN 72 H Creatinine 6.20 H* Glucose 274 H POC Glucose (mg/dL) Phosphorus Magnesium Alkaline Phosphatase Urine Protein 1+ H Urine Glucose (UA) Trace H Urine Blood Small H Urine Bilirubin 1+ H Amorphous Sediment Moderate H Hyaline Casts 27 H Urine Mucus Occasional H Ur Random Sodium Levetiracetam 84.9 H 01/31/17 01/31/17 01/31/17 06:39 11:33 14:40 WBC 2.7 L RBC 3.66 L Hgb Hct 38.7 L MCV 105.8 H MCH 35.8 H Plt Count Lymphocytes # 0.3 L Sodium Potassium Chloride Carbon Dioxide BUN Creatinine Glucose POC Glucose (mg/dL) 255 H Phosphorus Magnesium Alkaline Phosphatase Urine Protein Urine Glucose (UA) Urine Blood Urine Bilirubin Amorphous Sediment Hyaline Casts Urine Mucus Ur Random Sodium 18 L Levetiracetam 01/31/17 01/31/17 17:01 21:21 WBC RBC Hgb Hct MCV MCH Plt Count Lymphocytes # Sodium Potassium Chloride Carbon Dioxide BUN Creatinine Glucose POC Glucose (mg/dL) 179 H 122 H Phosphorus Magnesium Alkaline Phosphatase Urine Protein Urine Glucose (UA) Urine Blood Urine Bilirubin Amorphous Sediment Hyaline Casts Urine Mucus Ur Random Sodium Levetiracetam Assessment and Plan (1) Acute kidney failure Status: Acute Code(s): N17.9 - ACUTE KIDNEY FAILURE, UNSPECIFIED (2) Hypomagnesemia Status: Acute Code(s): E83.42 - HYPOMAGNESEMIA (3) Hyponatremia Status: Acute Code(s): E87.1 - HYPO-OSMOLALITY AND HYPONATREMIA (4) History of seizure disorder Status: Chronic Code(s): Z86.69 - PERSONAL HISTORY OF DIS OF THE NERVOUS SYS AND SENSE ORGANS Plan: Patient has been admitted with acute renal injury. He has some not had any breakthrough seizures. His medications have been held. Recommend switching patient from Keppra to Depakote. Since Keppra is renally excreted and Depakote is primarily metabolized in the liver this would be a better option at this time. Although he has a history of alcohol abuse there is no present evidence of elevated LFTs
[2017-01-31] MEDS: VALPROATE SODIUM 500 MG in SODIUM CHLORIDE 0.9% 50 ML IVPB SCH (23:06)
[2017-02-01 05:56] LABS: Glucose,Whole Blood 133 mg/dL (75-99)
[2017-02-01] MEDS: INSULIN LISPRO (humaLOG) 300 UNIT/3 ML VIAL SQ SCH ×4 (06:44→21:39)
[2017-02-01] MEDS: SODIUM CHLORIDE 0.9% 1,000 ML IV SCH ×2 (06:52→18:10)
[2017-02-01] MEDS: PANTOPRAZOLE 40 MG TABLET PO SCH (06:52)
[2017-02-01 06:59] LABS: Basophils % (A) 0 %; CHCM 35.4; Eosinophils % (A) 0 %; HCT 30.9 % (39.0-53.0); HDW 2.27; HGB 10.8 gm/dL (13.0-17.5); Luc # (Auto) 0.09; Luc % (Auto) 1; Lymphocytes # (A) 0.2 k/uL (1.0-4.8); Lymphocytes % (A) 3 %; MCH 36.7 pg (25.0-35.0); MCHC 34.9 g/dL (31.0-37.0); MCV 104.9 fL (80.0-100.0); Macrocytosis Slight; Mean Platelet Volume 7.9; Monocytes # (A) 0.5 k/uL (0-1.0); Monocytes % (A) 7 %; Neutrophils # (A) 6.4 k/uL (1.3-7.7); Neutrophils % (A) 89 %; RBC 2.95 m/uL (4.30-5.90); RDW 13.4 % (11.5-15.5); WBC 7.3 k/uL (3.8-10.6); WBC (Perox) 7.59
[2017-02-01 07:13] LABS: Potassium 4.7 mmol/L (3.5-5.1)
[2017-02-01] MEDS: HEPARIN SODIUM,PORCINE 5,000 UNIT/ML 1 ML VIAL SQ SCH ×2 (09:37→21:39)
[2017-02-01] MEDS: methylPREDNISolone SOD SUCCI 40 MG/ML 1 ML VIAL IV SCH ×2 (09:37→21:39)
[2017-02-01] MEDS: NICOTINE 14MG/24HR PATCH TRANSDERM SCH (09:38)
[2017-02-01] MEDS: SODIUM BICARBONATE TAB 650 MG TAB PO SCH ×2 (09:38→21:40)
[2017-02-01] MEDS: VALPROATE SODIUM 500 MG in SODIUM CHLORIDE 0.9% 50 ML IVPB SCH (10:13)
[2017-02-01] MEDS: MAGNESIUM OXIDE 400 MG TAB PO SCH (11:48)
[2017-02-01] MEDS: MULTIVITAMINS, THERA 1 EACH TAB PO SCH (11:48)
--- NOTE | 2017-02-01 11:52 | P.PN ---
Subjective Patient is seen in follow-up for acute kidney injury. Renal function continues to improve with creatinine down to 2.27 today. Patient's currently sitting up in bed. Denies any nausea vomiting. Denies chest pain or shortness of breath. His Keppra level was noted to be elevated at 84 which is now been discontinued. He denies any chest pain or shortness of breath. Admits to good urine output. Hemodynamically stable. Vital signs are stable. General: The patient appeared well nourished and normally developed. HEENT: Head exam is unremarkable. Neck is without jugular venous distension. LUNGS: Lungs are clear to auscultation and percussion. Breath sounds decreased. HEART: Rate and Rhythm are regular. First and second heart sounds normal. No murmurs, rubs or gallops. ABDOMEN: Abdominal exam reveals normal bowel sounds. Non-tender and non- distended. No evidence of peritonitis. EXTREMITITES: No clubbing, cyanosis, or edema. Objective - Vital Signs Vital signs: Vital Signs Temp 97.8 F 02/01/17 06:42 Pulse 72 02/01/17 06:42 Resp 18 02/01/17 06:42 BP 139/93 02/01/17 06:42 Pulse Ox 97 02/01/17 06:42 Intake & Output 01/31/17 02/01/17 02/01/17 18:59 06:59 18:59 Intake Total 480 1650 Output Total 2750 1650 Balance -2270 0 Intake: IV 1600 Sodium Chloride 0.9% 1, 1600 000 ml @ 100 mls/hr IV . Q10H BHARATH Rx#:[id number] Intake, IV Titration 50 Amount Valproate Sodium 500 mg 50 In Sodium Chloride 0.9% 50 ml @ 50 mls/hr IVPB Q8HR BHARATH Rx#:[id number] Oral 480 Output: Urine 2750 1650 Other: Voiding Method Urinal Urinal # Voids 1 1 - Labs CBC & Chem 7: 02/01/17 06:15 02/01/17 06:15 Labs: Abnormal Lab Results - Last 24 Hours (Table) 01/31/17 01/31/17 01/31/17 Range/Units 14:40 17:01 21:21 RBC (4.30-5.90) m/uL Hgb (13.0-17.5) gm/dL Hct (39.0-53.0) % MCV (80.0-100.0) fL MCH (25.0-35.0) pg Plt Count (150-450) k/uL Lymphocytes # (1.0-4.8) k/uL Sodium (137-145) mmol/L Carbon Dioxide (22-30) mmol/L BUN (9-20) mg/dL Creatinine (0.66-1.25) mg/dL Glucose (74-99) mg/dL POC Glucose (mg/dL) 179 H 122 H (75-99) mg/dL Ur Random Sodium 18 L (30-90) mmol/L 02/01/17 02/01/17 02/01/17 Range/Units 05:55 06:15 06:15 RBC 2.95 L (4.30-5.90) m/uL Hgb 10.8 L (13.0-17.5) gm/dL Hct 30.9 L (39.0-53.0) % MCV 104.9 H (80.0-100.0) fL MCH 36.7 H (25.0-35.0) pg Plt Count 147 L (150-450) k/uL Lymphocytes # 0.2 L (1.0-4.8) k/uL Sodium 134 L (137-145) mmol/L Carbon Dioxide 21 L (22-30) mmol/L BUN 58 H (9-20) mg/dL Creatinine 2.27 H (0.66-1.25) mg/dL Glucose 123 H (74-99) mg/dL POC Glucose (mg/dL) 133 H (75-99) mg/dL Ur Random Sodium (30-90) mmol/L Assessment and Plan Plan: Assessment: #1. Nonoliguric acute kidney injury mostly prerenal secondary to severe intravascular volume depletion from poor oral intake and vomiting. Further worsened with the use of christianne inhibitors. Creatinine was 10.7 on admission and is down to 2.7 today. No evidence of hydronephrosis. #2. Hyponatremia. This is due to low solute intake in the setting of excess water intake. Improved. #3. Metabolic acidosis secondary to acute kidney injury. #4. Hypomagnesemia to poor nutritional status. I don't see any diuretics and his home medications. Does have history of alcohol abuse however states he hasn 't been drinking much recently. He is on a proton pump inhibitor however it was just started this admission. #5. Elevated Keppra level, now discontinued. Started on Depakote per neurology. Plan: Maintain normal saline to be run at 100 mL an hour. Continue oral sodium bicarbonate supplementation. Encouraged oral intake. Continue to hold CHRISTIANNE inhibitor for now. Proteinuria noted on urinalysis. He may have underlying diabetes as his blood sugars are high. Will repeat urinalysis and quantify proteinuria once GFR returns to baseline. Repeat electrolytes in the morning.
[2017-02-01 12:02] LABS: Glucose,Whole Blood 106 mg/dL (75-99)
[2017-02-01] MEDS ORDERED: VALPROATE SODIUM 500 MG in SODIUM CHLORIDE 0.9% 50 ML IVPB STA (16:53)
--- NOTE | 2017-02-01 17:30 | P.PN ---
Subjective Progress Note Dictated for Dr. Martino. 01/31/17 Interval history: This a 36-year-old gentleman admitted with acute renal failure , hyponatremia, hypomagnesemia, and multiple other medical issues. Maintained on IV fluid hydration, Keppra,prn Ativan. Blood pressures improved. Evaluated by nephrology with recommendations noted. Last night developed questionable upper lip swelling without airway involvement or further facial involvement, unable to relate it to anything, possible anaphylaxis. Treated with IV steroids and much improved. Elevated blood sugars, steroid-induced. Hemoglobin A1c 5. Good diet intake with no nausea vomiting. Sodium decreased to 124. Metabolic acidosis, oral sodium bicarb initiated. Magnesium significantly improved, with supplementation. 02/01/17 Maintained on IV fluid hydration, significant improvement in sodium and renal function; Sodium 134, creatinine 2.27. Keppra on hold related to elevated level. Maintained on Depakote with level pending. Denies seizure activity. Good diet intake, no nausea or vomiting. Blood sugars controlled. Review of systems: Unchanged: HEENT: Denies headache or focal deficits. Denies any dizziness or lightheadedness. Respiratory: Denies any increased shortness of breath. Cardiac: Denies any chest pain, palpitations. GI: Denies any nausea, vomiting, or diarrhea. Denies any abdominal tenderness. : Denies any dysuria. Psychiatry: Denies any anxiety or depression. Active Medications Generic Name Dose Route Start Last Admin Trade Name Freq PRN Reason Stop Dose Admin Acetaminophen 500 mg 01/30/17 18:04 Tylenol Tab PO Q6HR PRN Fever and/ or Pain Hydrocodone Bitart/Acetaminophen 1 each 01/30/17 18:04 [place] 5-325 PO Q6HR PRN Pain Divalproex Sodium 500 mg 02/01/17 22:00 Depakote PO TID BHARATH Heparin Sodium (Porcine) 5,000 unit 01/30/17 21:00 02/01/17 09:37 Heparin SQ 5,000 unit Q12HR BHARATH Administration Hydromorphone HCl 0.5 mg 01/30/17 18:04 Dilaudid IVP Q6HR PRN Severe Pain Sodium Chloride 1,000 mls @ 100 mls/hr 01/30/17 13:45 02/01/17 06:52 Saline 0.9% IV 100 mls/hr .Q10H BHARATH Administration Valproic Acid 500 mg/ Sodium 55 mls @ 50 mls/hr 02/01/17 16:53 Chloride IVPB 02/01/17 17:58 ONCE STA Insulin Human Lispro 0 unit 01/31/17 12:30 02/01/17 11:48 Humalog SQ Not Given A[facility]S [facility] Protocol Levetiracetam 1,000 mg 01/30/17 21:00 01/31/17 08:14 Keppra PO 1,000 mg Q12HR BHARATH Administration Lorazepam 0.5 mg 01/30/17 18:04 Ativan PO Q4HR PRN Anxiety Magnesium Oxide 400 mg 01/31/17 12:00 02/01/17 11:48 Mag-Ox PO 400 mg 1200 BHARATH Administration Methylprednisolone Sodium Succinate 40 mg 01/31/17 09:00 02/01/17 09:37 Solu-Medrol IV 40 mg Q12HR BHARATH Administration Multivitamins 1 each 01/31/17 12:00 02/01/17 11:48 Theragran PO 1 each 1200 BHARATH Administration Naloxone HCl 0.2 mg 01/30/17 13:31 Narcan IV Q2M PRN Opioid Reversal Nicotine 1 patch 01/31/17 09:00 02/01/17 09:38 Habitrol 14mg/24hr Patch TRANSDERM 1 patch DAILY BHARATH Administration Pantoprazole Sodium 40 mg 01/31/17 07:30 02/01/17 06:52 Protonix PO 40 mg AC-BRKFST BHARATH Administration Sodium Bicarbonate 650 mg 01/31/17 10:45 02/01/17 09:38 Sodium Bicarbonate Tab PO 650 mg BID BHARATH Administration Temazepam 15 mg 01/30/17 18:04 Restoril PO HS PRN Insomnia Trazodone HCl 100 mg 01/30/17 21:00 01/31/17 21:52 Desyrel PO 100 mg HS BHARATH Administration Objective - Vital Signs Vital signs: Vital Signs Temp 98.2 F 02/01/17 15:00 Pulse 56 L 02/01/17 16:00 Resp 18 02/01/17 16:00 BP 160/95 02/01/17 15:00 Pulse Ox 99 02/01/17 15:00 Intake & Output 01/31/17 02/01/17 02/01/17 18:59 06:59 18:59 Intake Total 480 1650 550 Output Total 2750 1650 800 Balance -2270 0 -250 Weight 67 kg Intake: IV 1600 Sodium Chloride 0.9% 1, 1600 000 ml @ 100 mls/hr IV . Q10H [facility]ARATH Rx#:[id number] Intake, IV Titration 50 50 Amount Valproate Sodium 500 mg 50 50 In Sodium Chloride 0.9% 50 ml @ 50 mls/hr IVPB Q8HR [facility]ARATH Rx#:[id number] Oral 480 500 Output: Urine 2750 1650 800 Other: Voiding Method Urinal Urinal Urinal # Voids 1 1 1 - Exam PHYSICAL EXAM: VITAL SIGNS: As above GENERAL: [Sitting up in bed, no acute distress] HEENT: [Pupils equal conjunctiva normal. Oral mucosa moist] NECK: [Supple, no JVD] RESPIRATORY EFFORT:[ Normal] LUNGS: [Essentially clear, bilateral bases diminished, no wheezes rhonchi or crackles] CARDIOVASCULAR[ regular S1 and S2, no murmurs rubs or gallops] GI: [Abdomen soft, nontender, positive bowel sounds.] PSYCH: [Alert and oriented -3, mood and affect normal.] NEURO: Focal deficits - Labs CBC & Chem 7: 02/01/17 06:15 02/01/17 06:15 Labs: Abnormal Lab Results - Last 24 Hours (Table) 01/31/17 01/31/17 02/01/17 Range/Units 17:01 21:21 05:55 RBC (4.30-5.90) m/uL Hgb (13.0-17.5) gm/dL Hct (39.0-53.0) % MCV (80.0-100.0) fL MCH (25.0-35.0) pg Plt Count (150-450) k/uL Lymphocytes # (1.0-4.8) k/uL Sodium (137-145) mmol/L Carbon Dioxide (22-30) mmol/L BUN (9-20) mg/dL Creatinine (0.66-1.25) mg/dL Glucose (74-99) mg/dL POC Glucose (mg/dL) 179 H 122 H 133 H (75-99) mg/dL 02/01/17 02/01/17 02/01/17 Range/Units 06:15 06:15 11:48 RBC 2.95 L (4.30-5.90) m/uL Hgb 10.8 L (13.0-17.5) gm/dL Hct 30.9 L (39.0-53.0) % MCV 104.9 H (80.0-100.0) fL MCH 36.7 H (25.0-35.0) pg Plt Count 147 L (150-450) k/uL Lymphocytes # 0.2 L (1.0-4.8) k/uL Sodium 134 L (137-145) mmol/L Carbon Dioxide 21 L (22-30) mmol/L BUN 58 H (9-20) mg/dL Creatinine 2.27 H (0.66-1.25) mg/dL Glucose 123 H (74-99) mg/dL POC Glucose (mg/dL) 106 H (75-99) mg/dL Assessment and Plan Plan: 1. Acute renal failure, possibly prerenal and acute tubular necrosis. 2. [ Acute hyponatremia]. 3. [ Acute hypomagnesemia]. 4. [ Anemia, macrocytic]. 5. [ Seizure disorder, history of]. Plan: Continue on current medication regime ,monitoring and symptomatic treatment. Maintain fluid restrictions. Close monitoring of renal function and electrolytes with repeat labs ordered for a.m. as mentioned above Depakote level pending. Discharge planning in progress for tomorrow. The impression and plan of care has been dictated as directed. : I performed a H&P examination of this patient and discussed the same with the dictator. I agree with the dictator's note. Any additional findings/opinions/ etc. will be noted.
[2017-02-01 17:32] LABS: Glucose,Whole Blood 123 mg/dL (75-99)
[2017-02-01 19:58] LABS: Glucose,Whole Blood 144 mg/dL (75-99)
[2017-02-01] MEDS: DIVALPROEX 500 MG TABLET.DR PO SCH (21:40)
[2017-02-01] MEDS: traZODone HCL 100 MG TAB PO SCH (21:40)
[2017-02-01 21:46] VITALS: RESP 16
[2017-02-02] MEDS: SODIUM CHLORIDE 0.9% 1,000 ML IV SCH ×2 (03:34→11:50)
[2017-02-02 06:47] LABS: Glucose,Whole Blood 112 mg/dL (75-99)
[2017-02-02] MEDS: INSULIN LISPRO (humaLOG) 300 UNIT/3 ML VIAL SQ SCH ×2 (07:14→11:50)
[2017-02-02] MEDS: SODIUM BICARBONATE TAB 650 MG TAB PO SCH (07:15)
[2017-02-02] MEDS: NICOTINE 14MG/24HR PATCH TRANSDERM SCH (07:16)
[2017-02-02] MEDS: HEPARIN SODIUM,PORCINE 5,000 UNIT/ML 1 ML VIAL SQ SCH (07:16)
[2017-02-02] MEDS: PANTOPRAZOLE 40 MG TABLET PO SCH (07:16)
[2017-02-02] MEDS: DIVALPROEX 500 MG TABLET.DR PO SCH (07:16)
[2017-02-02 07:25] VITALS: BP 173/100; PULSE 50; TEMP 98
[2017-02-02 08:01] LABS: Anion Gap 11 mmol/L; Basophils % (A) 0 %; Blood Urea Nitrogen 41 mg/dL (9-20); CH 36.2; CHCM 34.1; Calcium 9.3 mg/dL (8.4-10.2); Carbon Dioxide 23 mmol/L (22-30); Chloride 106 mmol/L (98-107); Eosinophils % (A) 0 %; Glucose 101 mg/dL (74-99); HCT 31.6 % (39.0-53.0); HDW 2.23; HGB 11.2 gm/dL (13.0-17.5); Luc # (Auto) 0.08; Luc % (Auto) 1; Lymphocytes # (A) 0.5 k/uL (1.0-4.8); Lymphocytes % (A) 6 %; MCH 37.8 pg (25.0-35.0); MCHC 35.5 g/dL (31.0-37.0); MCV 106.3 fL (80.0-100.0); Macrocytosis Moderate; Magnesium 1.3 mg/dL (1.6-2.3); Mean Platelet Volume 7.4; Monocytes # (A) 0.5 k/uL (0-1.0); Monocytes % (A) 7 %; Neutrophils % (A) 85 %; Non-African American GFR(MDRD) >60 (>60 ml/min/1.73 sqM); Potassium 4.7 mmol/L (3.5-5.1); RBC 2.98 m/uL (4.30-5.90); RDW 13.3 % (11.5-15.5); Sodium 140 mmol/L (137-145); WBC 7.1 k/uL (3.8-10.6); WBC (Perox) 6.94
[2017-02-02] MEDS: VALPROATE SODIUM 500 MG in SODIUM CHLORIDE 0.9% 50 ML IVPB SCH (08:32)
[2017-02-02] MEDS ORDERED: MAGNESIUM OXIDE 400 MG TAB PO SCH (10:30)
[2017-02-02] MEDS ORDERED: MAGNESIUM SULFATE-D5W PMX 1 GM in DEXTROSE/WATER 1 100ML.BAG IVPB SCH (10:30)
[2017-02-02] MEDS: methylPREDNISolone SOD SUCCI 40 MG/ML 1 ML VIAL IV SCH (10:44)
[2017-02-02] MEDS ORDERED: DIVALPROEX 500 MG TABLET.DR PO STA (10:54)
[2017-02-02] MEDS: MULTIVITAMINS, THERA 1 EACH TAB PO SCH (11:51)
--- NOTE | 2017-02-02 15:21 | P.DS ---
Providers Date of admission: 01/30/17 14:01 Attending physician: Korin Park Consults: 01/30/17 13:31 Consult Physician Routine Consulting Provider: Angelica Albright Consult Reason/Comments: ALDO Do you want consulting provider notified?: Yes 01/31/17 12:29 Consult Physician Routine Consulting Provider: Nita Andres Consult Reason/Comments: seizure medication management Do you want consulting provider notified?: Yes Primary care physician: Vel Hughes [facility] Course: 36-year-old gentleman was admitted to renal failure. Renal failure is thought to be acute tubular necrosis secondary to prerenal factors. Treated with IV fluids. Improved significantly. On exam vitals are stable cardio S1 and S2 normal. Respiratory system the sounds equal. Abdomen soft nontender. No system no focal deficit. X Diagnosis 1. Acute renal failure possibly prerenal and acute tubular necrosis. 2. Acute hyponatremia 3. Acute hypomagnesemia 4. Anemia macrocytic 5. History of seizure disorder Patient Condition at Discharge: Stable Plan - Discharge Summary New Discharge Prescriptions: New Divalproex [Depakote] 500 mg PO TID #90 tab HYDROcodone/APAP 5-325MG [[place] 5-325] 1 each PO Q6HR PRN #20 tab PRN Reason: Pain Nicotine 14Mg/24Hr Patch [Habitrol] 1 patch TRANSDERM DAILY #30 patch Pantoprazole [Protonix] 40 mg PO AC-BRKFST #30 tab Continue Multivitamin [Multiple Vitamins] 1 tab PO DAILY traZODone HCL [Desyrel] 100 mg PO HS Potassium Chloride ER [K-Dur 20] 20 meq PO DAILY Changed Magnesium Oxide 400 mg PO BID #60 Discontinued levETIRAcetam [Keppra] 1,000 mg PO Q12HR #60 tab Discharge Medication List Multivitamin [Multiple Vitamins] 1 tab PO DAILY 01/30/17 [History] Potassium Chloride ER [K-Dur 20] 20 meq PO DAILY 01/30/17 [History] traZODone HCL [Desyrel] 100 mg PO HS 01/30/17 [History] Divalproex [Depakote] 500 mg PO TID #90 tab 02/02/17 [Rx] HYDROcodone/APAP 5-325MG [[place] 5-325] 1 each PO Q6HR PRN #20 tab 02/02/17 [Rx] Magnesium Oxide 400 mg PO BID #60 02/02/17 [Rx] Nicotine 14Mg/24Hr Patch [Habitrol] 1 patch TRANSDERM DAILY #30 patch 02/02/17 [ Rx] Pantoprazole [Protonix] 40 mg PO AC-BRKFST #30 tab 02/02/17 [Rx] Follow up Appointment(s)/Referral(s): Vel Polo MD [Primary Care Provider] - 02/06/17 4:00 pm Deepthi Andres MD [STAFF PHYSICIAN] - 02/22/17 5:00 pm Tavares Navarrete DO [STAFF PHYSICIAN] - 2 Weeks (Dr. Navarrete's office will call patient with an appointment date and time.) Ambulatory/Diagnostic Orders: Complete Blood Count w/diff [LAB.AMB] Time Frame: 3 Days, Location: Determined By Patient Patient Instructions/Handouts: Hydrocodone/Acetaminophen (By mouth), Nicotine ( Absorbed through the skin), Pantoprazole (By mouth), Divalproex (By mouth), Magnesium Oxide (By mouth), Acute Kidney Injury (DC), Hyponatremia (DC), Hypomagnesemia (DC) Activity/Diet/Wound Care/Special Instructions: may discharge patient to home after giving one additional dose of depakote 500mg now, follow up at February appointment Discharge Disposition: HOME SELF-CARE
== END 2017-02-02 13:35 | disposition home or self-care (01) | DRG 683 ==
LOC: EC 10:59 → 6SEL 14:01 → 5MS5E 02-01 07:20
PROVIDERS: ADMIT Internal Medicine; ATTEND Internal Medicine
DX: N17.0 Acute kidney failure with tubular necrosis (principal); E87.1 Hypo-osmolality and hyponatremia; E87.2 Acidosis; I10 Essential (primary) hypertension; E83.42 Hypomagnesemia; G40.909 Epilepsy, unspecified, not intractable, without status epilepticus; J45.909 Unspecified asthma, uncomplicated; G47.30 Sleep apnea, unspecified; F17.200 Nicotine dependence, unspecified, uncomplicated; F32.9 Major depressive disorder, single episode, unspecified; F41.9 Anxiety disorder, unspecified; F10.10 Alcohol abuse, uncomplicated; M19.041 Primary osteoarthritis, right hand; T38.0X5A Adverse effect of glucocorticoids and synthetic analogues, initial encounter; R73.02 Impaired glucose tolerance (oral); Z91.018 Allergy to other foods; Z90.49 Acquired absence of other specified parts of digestive tract; Z80.42 Family history of malignant neoplasm of prostate; Z79.899 Other long term (current) drug therapy
CPT/HCPCS: 36415; 51798; 76770; 80048; 80053; 80164; 80177; 80306; 81001; 82533; 82550; 83036; 83735; 83930; 83935; 84100; 84300; 85025; 96365; 99284

== ENCOUNTER 2017-02-06 13:58 | Emergency (ER) | payer OTHER ==
[2017-02-06 17:09] LABS: Basophils % (A) 0 %; CH 36.4; CHCM 35.2; Eosinophils # (A) 0.2 k/uL (0-0.7); Eosinophils % (A) 4 %; HDW 2.18; HGB 11.8 gm/dL (13.0-17.5); Luc # (Auto) 0.09; Luc % (Auto) 2; Lymphocytes # (A) 1.4 k/uL (1.0-4.8); Lymphocytes % (A) 21 %; MCH 36.1 pg (25.0-35.0); MCHC 34.8 g/dL (31.0-37.0); MCV 103.7 fL (80.0-100.0); Macrocytosis Slight; Mean Platelet Volume 7.4; Monocytes # (A) 0.5 k/uL (0-1.0); Monocytes % (A) 8 %; Neutrophils # (A) 4.1 k/uL (1.3-7.7); Neutrophils % (A) 65 %; RBC 3.28 m/uL (4.30-5.90); RDW 13.6 % (11.5-15.5); WBC 6.3 k/uL (3.8-10.6); WBC (Perox) 6.54
[2017-02-06 17:15] LABS: Anion Gap 11 mmol/L; Blood Urea Nitrogen 11 mg/dL (9-20); Calcium 9.7 mg/dL (8.4-10.2); Carbon Dioxide 31 mmol/L (22-30); Chloride 97 mmol/L (98-107); Glucose 95 mg/dL (74-99); Non-African American GFR(MDRD) >60 (>60 ml/min/1.73 sqM); Potassium 3.9 mmol/L (3.5-5.1); Sodium 139 mmol/L (137-145)
[2017-02-06 17:28] LABS: Magnesium 0.9 mg/dL (1.6-2.3)
[2017-02-06] MEDS: MAGNESIUM SULFATE-D5W PMX 1 GM in DEXTROSE/WATER 1 100ML.BAG IVPB SCH ×2 (17:46→18:47)
--- NOTE | 2017-02-06 17:58 | ED ---
Recheck HPI - General Chief Complaint: Recheck/Abnormal Lab/Rx Stated Complaint: Dr Sent/ Low Magnesium Time Seen by Provider: 02/06/17 16:08 Source: patient Mode of arrival: ambulatory Limitations: no limitations - History of Present Illness Initial Comments: 36-year-old male presenting for evaluation of hypomagnesemia. He states that he has had baseline laboratory by his primary care physician this morning and he was called later on today stating that his magnesium was ordered ago. He states that he has been having is probably some time although no diagnosis as to the etiology has been discovered. He is placed on oral replacement medication and started yesterday. He denies any symptoms at this time and states that he feels just fine. - Related Data Home Medications Medication Instructions Recorded Confirmed Multivitamin [Multiple Vitamins] 1 tab PO DAILY 01/30/17 02/06/17 Potassium Chloride ER [K-Dur 20] 20 meq PO DAILY 01/30/17 02/06/17 traZODone HCL [Desyrel] 100 mg PO HS 01/30/17 02/06/17 HYDROcodone/APAP 5-325MG [Stone 1 tab PO Q6HR PRN 02/06/17 02/06/17 5-325] Previous Rx's Medication Instructions Recorded Divalproex [Depakote] 500 mg PO TID #90 tab 02/02/17 Magnesium Oxide 400 mg PO BID #60 02/02/17 Nicotine 14Mg/24Hr Patch [Habitrol] 1 patch TRANSDERM DAILY #30 patch 02/02/17 Pantoprazole [Protonix] 40 mg PO AC-BRKFST #30 tab 02/02/17 Allergies Allergy/AdvReac Type Severity Reaction Status Date / Time hot sauce Allergy Swelling Uncoded 02/06/17 14:22 Review of Systems ROS Statement: Those systems with pertinent positive or pertinent negative responses have been documented in the HPI. ROS Other: All systems not noted in ROS Statement are negative. Constitutional: Denies: fever, chills Eyes: Denies: eye pain, eye discharge ENT: Denies: ear pain, throat pain Respiratory: Denies: cough, dyspnea Cardiovascular: Denies: chest pain, palpitations Endocrine: Denies: fatigue, heat or cold intolerance Gastrointestinal: Denies: abdominal pain, nausea, vomiting Genitourinary: Denies: urgency, dysuria Musculoskeletal: Denies: back pain, joint swelling Skin: Denies: rash, lesions Neurological: Denies: headache, weakness Psychiatric: Denies: anxiety, depression Hematological/Lymphatic: Denies: easy bleeding, easy bruising Past Medical History Past Medical History: Asthma, Hypertension, Osteoarthritis (OA), Seizure Disorder, Sleep Apnea/CPAP/BIPAP Additional Past Medical History / Comment(s): Sleeping problems, arthritis R hand, not using cpap. last seizure in december 2016, low magnesium History of Any Multi-Drug Resistant Organisms: None Reported Past Surgical History: Cholecystectomy Additional Past Surgical History / Comment(s): R hand fracture repair. Past Anesthesia/Blood Transfusion Reactions: No Reported Reaction Past Psychological History: Anxiety, Depression Smoking Status: Current every day smoker Past Alcohol Use History: None Reported Past Drug Use History: None Reported - Past Family History Father Family Medical History: Cancer Additional Family Medical History / Comment(s): Prostate cancer. Mother History Unknown: Yes Additional Family Medical History / Comment(s): Pt states he does not have much contact with his mother. General Exam Limitations: no limitations General appearance: alert, in no apparent distress Head exam: Present: atraumatic, normocephalic, normal inspection Eye exam: Present: normal appearance, PERRL, EOMI. Absent: scleral icterus, conjunctival injection, periorbital swelling ENT exam: Present: normal exam, mucous membranes moist Neck exam: Present: normal inspection. Absent: tenderness, meningismus, lymphadenopathy Respiratory exam: Present: normal lung sounds bilaterally. Absent: respiratory distress, wheezes, rales, rhonchi, stridor Cardiovascular Exam: Present: regular rate, normal rhythm, normal heart sounds. Absent: systolic murmur, diastolic murmur, rubs, gallop, clicks GI/Abdominal exam: Present: soft, normal bowel sounds. Absent: distended, tenderness, guarding, rebound, rigid Rectal exam: Present: deferred Extremities exam: Present: normal inspection, full ROM, normal capillary refill. Absent: tenderness, pedal edema, joint swelling, calf tenderness Back exam: Present: normal inspection Neurological exam: Present: alert, oriented X3, CN II-XII intact Psychiatric exam: Present: normal affect, normal mood Skin exam: Present: warm, dry, intact, normal color. Absent: rash Course Vital Signs 08/21/17 08/21/17 14:19 19:32 Temperature 99.2 F 98.4 F Pulse Rate 92 78 Respiratory 18 16 Rate Blood Pressure 163/105 144/64 O2 Sat by Pulse 99 99 Oximetry Medical Decision Making - Medical Decision Making 36-year-old male presented for evaluation of hypomagnesemia after labs are drawn this morning by his primary care physician. On physical examination the patient has no complaints and there are no abnormalities noted. Labs are drawn and magnesium was noted to be very low at 0.9. Lipase and magnesium was provided. Potassium was within normal limits and was not replaced. After the infusion of magnesium the patient requested to be discharged home. He was advised to continue taking his oral replacement of magnesium and follow-up with his primary care physician this week for repeat labs. The patient acknowledged an understanding of this information and agreed with this plan of care. - Lab Data Result diagrams: 02/06/17 16:52 02/06/17 16:52 Lab Results 02/06/17 02/06/17 Range/Units 16:52 16:52 WBC 6.3 (3.8-10.6) k/uL RBC 3.28 L (4.30-5.90) m/uL Hgb 11.8 L (13.0-17.5) gm/dL Hct 34.0 L (39.0-53.0) % MCV 103.7 H (80.0-100.0) fL MCH 36.1 H (25.0-35.0) pg MCHC 34.8 (31.0-37.0) g/dL RDW 13.6 (11.5-15.5) % Plt Count 376 (150-450) k/uL Neutrophils % 65 % Lymphocytes % 21 % Monocytes % 8 % Eosinophils % 4 % Basophils % 0 % Neutrophils # 4.1 (1.3-7.7) k/uL Lymphocytes # 1.4 (1.0-4.8) k/uL Monocytes # 0.5 (0-1.0) k/uL Eosinophils # 0.2 (0-0.7) k/uL Basophils # 0.0 (0-0.2) k/uL Macrocytosis Slight Sodium 139 (137-145) mmol/L Potassium 3.9 (3.5-5.1) mmol/L Chloride 97 L (98-107) mmol/L Carbon Dioxide 31 H (22-30) mmol/L Anion Gap 11 mmol/L BUN 11 (9-20) mg/dL Creatinine 0.75 (0.66-1.25) mg/dL Est GFR (MDRD) Af Amer >60 (>60 ml/min/1.73 sqM) Est GFR (MDRD) Non-Af >60 (>60 ml/min/1.73 sqM) Glucose 95 (74-99) mg/dL Calcium 9.7 (8.4-10.2) mg/dL Magnesium 0.9 L* (1.6-2.3) mg/dL 02/06/17 17:45 Sinus rhythm with short FL and a ventricular rate of 75, SESAR 108, QRS 78, QT/ QTC 378/422. Disposition Clinical Impression: Hypomagnesemia Disposition: HOME SELF-CARE Condition: Stable Instructions: Hypomagnesemia (ED) Referrals: Vel Polo MD [Primary Care Provider] - 1-2 days Time of Disposition: 18:42
[2017-02-06 19:33] VITALS: BP 144/64; PULSE 78; RESP 16; TEMP 98.4
== END 2017-02-06 19:32 | disposition home or self-care (01) ==
LOC: EC 13:58
DX: E83.42 Hypomagnesemia (principal); F32.9 Major depressive disorder, single episode, unspecified; F17.200 Nicotine dependence, unspecified, uncomplicated; F41.9 Anxiety disorder, unspecified; Z91.018 Allergy to other foods; Z79.899 Other long term (current) drug therapy
CPT/HCPCS: 36415; 93005; 80048; 83735; 85025; 99283; 96365; 96366; J3475

== ENCOUNTER → 2017-02-06 | Outpatient (CLI) | payer OTHER ==
[2017-02-06 10:37] LABS: Basophils # (A) 0.1 k/uL (0-0.2); Basophils % (A) 1 %; CH 36.3; CHCM 34.2; Eosinophils # (A) 0.3 k/uL (0-0.7); Eosinophils % (A) 7 %; HCT 35.2 % (39.0-53.0); HDW 2.22; HGB 12.1 gm/dL (13.0-17.5); Luc # (Auto) 0.12; Luc % (Auto) 3; Lymphocytes # (A) 1.2 k/uL (1.0-4.8); Lymphocytes % (A) 30 %; MCH 36.5 pg (25.0-35.0); MCHC 34.4 g/dL (31.0-37.0); MCV 106.1 fL (80.0-100.0); Macrocytosis Moderate; Mean Platelet Volume 7.2; Monocytes # (A) 0.4 k/uL (0-1.0); Monocytes % (A) 9 %; Neutrophils % (A) 50 %; RBC 3.32 m/uL (4.30-5.90); RDW 13.5 % (11.5-15.5); WBC 4.1 k/uL (3.8-10.6)
[2017-02-06 10:44] LABS: Anion Gap 12 mmol/L; Blood Urea Nitrogen 10 mg/dL (9-20); Calcium 9.9 mg/dL (8.4-10.2); Carbon Dioxide 33 mmol/L (22-30); Chloride 100 mmol/L (98-107); Glucose 82 mg/dL (74-99); Non-African American GFR(MDRD) >60 (>60 ml/min/1.73 sqM); Potassium 4.3 mmol/L (3.5-5.1); Sodium 145 mmol/L (137-145)
== END | disposition home or self-care (01) ==
LOC: LABWHC1 10:14
PROVIDERS: ATTEND Nurse Practitioner
DX: N19 Unspecified kidney failure (principal); E83.42 Hypomagnesemia
CPT/HCPCS: 36415; 80048; 83735; 85025

== ENCOUNTER 2017-12-23 19:49 | Observation (INO) | payer OTHER ==
[2017-12-23] MEDS ORDERED: diphenhydrAMINE 50 MG/ML 1 ML VIAL IVP STA (20:24)
[2017-12-23] MEDS ORDERED: FAMOTIDINE 20 MG/2 ML VIAL IV STA (20:24)
[2017-12-23] MEDS ORDERED: methylPREDNISolone SOD SUCCI 125 MG/2 ML VIAL IV STA (20:24)
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
[2017-12-23] MEDS: SODIUM CHLORIDE 0.9% 1,000 ML IV SCH (20:57)
[2017-12-23] MEDS ORDERED: ACETAMINOPHEN TAB 325 MG TAB PO PRN (21:00)
[2017-12-23] MEDS ORDERED: NALOXONE 0.4 MG/ML 1 ML VIAL IV PRN (21:00)
[2017-12-23] MEDS ORDERED: ONDANSETRON 4 MG/2 ML VIAL IVP PRN (21:00)
[2017-12-23] MEDS ORDERED: diphenhydrAMINE 50 MG/ML 1 ML VIAL IVP PRN (21:00)
[2017-12-23] MEDS ORDERED: traZODone HCL 50 MG TAB PO PRN ×2 (21:09→21:11)
[2017-12-23] MEDS: methylPREDNISolone SOD SUCCI 125 MG/2 ML VIAL IV SCH (21:09)
[2017-12-23 21:11] LABS: Basophils % (A) 0 %; Eosinophils # (A) 0.2 k/uL (0-0.7); Eosinophils % (A) 3 %; HCT 39.9 % (39.0-53.0); Lymphocytes # (A) 1.2 k/uL (1.0-4.8); Lymphocytes % (A) 17 %; MCH 35.8 pg (25.0-35.0); MCV 102.2 fL (80.0-100.0); Macrocytosis Slight; Mean Platelet Volume 7.8; Monocytes # (A) 0.5 k/uL (0-1.0); Monocytes % (A) 8 %; Neutrophils # (A) 4.6 k/uL (1.3-7.7); Neutrophils % (A) 70 %; Platelet Count 159 k/uL (150-450); RDW 13.7 % (11.5-15.5); WBC 6.6 k/uL (3.8-10.6)
[2017-12-23 21:23] LABS: Albumin 4.5 g/dL (3.5-5.0); Calcium 9.6 mg/dL (8.4-10.2); Potassium 4.1 mmol/L (3.5-5.1); Total Bilirubin 1.1 mg/dL (0.2-1.3); Total Protein 7.5 g/dL (6.3-8.2)
[2017-12-23 22:29] VITALS: BMI 24.2
[2017-12-23] MEDS: DIVALPROEX 500 MG TABLET.DR PO SCH (23:20)
[2017-12-24] MEDS: methylPREDNISolone SOD SUCCI 125 MG/2 ML VIAL IV SCH (10:22)
[2017-12-24] MEDS: SODIUM CHLORIDE 0.9% 1,000 ML IV SCH ×2 (10:22→17:59)
[2017-12-24] MEDS: DIVALPROEX 500 MG TABLET.DR PO SCH ×3 (10:22→22:15)
[2017-12-24] MEDS ORDERED: MAGNESIUM HYDROXIDE 2,400 MG/10 ML CUP PO PRN (16:57)
[2017-12-24] MEDS ORDERED: CALCIUM CARBONATE 500 MG CHEWABLE PO PRN (16:57)
[2017-12-24] MEDS ORDERED: MELATONIN 3 MG TABLET PO PRN (16:57)
[2017-12-24] MEDS ORDERED: LACTULOSE 20 GM/30 ML CUP PO PRN (16:57)
[2017-12-24] MEDS ORDERED: LORazepam 0.5 MG TAB PO PRN (16:57)
[2017-12-24] MEDS: NICOTINE 14MG/24HR PATCH TRANSDERM SCH (17:58)
[2017-12-24] MEDS: predniSONE 20 MG TAB PO SCH (17:58)
[2017-12-24] MEDS: diphenhydrAMINE 25 MG CAP PO SCH ×2 (17:58→22:15)
[2017-12-24] MEDS: ENOXAPARIN 40 MG/0.4 ML SYRINGE SQ SCH (17:58)
--- NOTE | 2017-12-24 19:41 | HP ---
HISTORY AND PHYSICAL DATE OF ADMISSION: December 23, 2017 DATE OF SERVICE: December 24, 2017. PRESENTING COMPLAINT: Swollen upper lip. HISTORY OF PRESENTING COMPLAINT: This is a pleasant 37-year-old patient of Dr. Polo. Chronic stable medical conditions include hypertension, osteoarthritis, seizure disorder, anxiety. The patient presented to the ER yesterday with severe swelling of this simply upper lip. There was no stridor. No wheezing. No difficulty swallowing. No rash, no itches. No hives. The patient has had a couple of these episodes in the past. The patient does take lisinopril which is not new. It happened 1 hour after taking his current dose. The patient is given a cocktail of Pepcid, Benadryl, IV Solu-Medrol in the ER. Admitted for the same. The patient stopped smoking 4 days ago cold turkey and did drink in the past. The patient does not remember eating anything unusual that may explain his swelling. Swelling is better since admission coming down and no new symptoms have developed. REVIEW OF SYSTEMS: CONSTITUTIONAL: None. HEENT as above. RESPIRATORY: Occasional wheezing. CARDIOVASCULAR none. GASTROINTESTINAL none. GENITOURINARY: None. MUSCULOSKELETAL: None. DERMATOLOGICAL as above. LYMPHATICS none. PSYCHIATRY: Anxiety. NEUROLOGICAL: Occasional mild tremors. PAST MEDICAL HISTORY: COPD, hypertension, osteoarthritis, seizures, some arthritis, last seizure was in December of last year. PAST SURGICAL HISTORY: Cholecystectomy, right hand fracture. PSYCH HISTORY: Anxiety and depression. SOCIAL HISTORY: Lives with his dad. Does not drive. Was doing collision and auto work. Stopped smoking 4 days ago. Was drinking up to last year. Now drinks occasionally. Last drink was 4 days ago. Three or four shots of whiskey. FAMILY HISTORY: Prostate cancer. HOME MEDICATIONS: 1. Desyrel 200 mg q.h.s. 2. Potassium 20 mEq p.o. daily. 3. Multivitamin 1 tablet p.o. daily. 4. Prinivil 10 mg as directed. 5. Depakote 500 mg p.o. t.i.d. ALLERGIES: PHYSICAL EXAMINATION: VITAL SIGNS: Vital signs on presentation, temperature 99.3, pulse 101, respirations 16, blood pressure 115/76, pulse ox 98% on room air. GENERAL APPEARANCE: Average build, sitting up. Somewhat anxious. EYES: Pupils equal. Conjunctivae normal. HEENT: External appearance of nose and ears normal. Oral cavity, swollen upper lip. No tenderness. No redness. NECK: No stridor, JVD not raised. Mass not palpable. RESPIRATORY: Effort normal. LUNGS: Slightly decreased breath sounds. CARDIOVASCULAR: 1st and 2nd sounds normal. No edema. ABDOMEN: Soft, nontender. Liver and spleen not palpable. LYMPHATICS: No lymph nodes palpable in the neck and axillae. PSYCHIATRY: Alert and oriented x3. Mood and affect normal. NEUROLOGICAL: Pupils equal. Cranial nerves grossly intact. Power and sensation grossly intact. Mild tremors. INVESTIGATIONS: White count 6.6, hemoglobin 14, MCV 102.2, potassium 4.1, BUN 36, creatinine 1.70. ASSESSMENT: 1. Acute angioedema in a patient who has been taking lisinopril for quite a while, but this is could be the offending drug. 2. Acute renal failure, cause undetermined at this point. Will need to be further worked up. 3. Chronic obstructive pulmonary disease in a current smoker. Patient stopped smoking 4 days ago. 4. Essential hypertension. 5. Anxiety, not otherwise specified. PLAN: Patient on IV fluids at 125 mL/h. Will do renal ultrasound. Check a UA. Of course Lisinopril has been held. Will keep a close eye on the patient's blood pressure. Care was discussed with the patient. Copy to Dr. Polo. DAYNE / BRE: [id number] /
[2017-12-24] MEDS: FAMOTIDINE 20 MG TAB PO SCH (20:53)
[2017-12-24] MEDS ORDERED: traZODone HCL 100 MG TAB PO SCH (21:00)
[2017-12-24 21:11] LABS: Appearance,Urine Clear (Clear); Bilirubin,Urine Negative (Negative); Blood,Urine Negative (Negative); Color,Urine Yellow; Glucose,Urine (UA) 4+ (Negative); Ketones,Urine 1+ (Negative); Leukocyte Esterase,Urine Negative (Negative); Nitrite,Urine Negative (Negative); PH, Urine 5.5 (5.0-8.0); Protein,Urine Negative (Negative); Specific Gravity,Urine 1.014 (1.001-1.035); Urobilinogen,Urine <2.0 mg/dL (<2.0)
[2017-12-25] MEDS: SODIUM CHLORIDE 0.9% 1,000 ML IV SCH ×3 (01:06→16:58)
[2017-12-25] MEDS: diphenhydrAMINE 25 MG CAP PO SCH ×3 (05:01→17:20)
[2017-12-25 06:15] VITALS: RESP 18
[2017-12-25] MEDS: FAMOTIDINE 20 MG TAB PO SCH (07:39)
[2017-12-25] MEDS: ENOXAPARIN 40 MG/0.4 ML SYRINGE SQ SCH (07:39)
[2017-12-25] MEDS: DIVALPROEX 500 MG TABLET.DR PO SCH ×2 (07:39→15:26)
[2017-12-25] MEDS: predniSONE 20 MG TAB PO SCH (07:39)
[2017-12-25] MEDS: NICOTINE 14MG/24HR PATCH TRANSDERM SCH (07:39)
--- NOTE | 2017-12-25 08:59 | US ---
EXAMINATION TYPE: US kidneys/renal and bladder DATE OF EXAM: 12/25/2017 COMPARISON: 01/30/2017 CLINICAL HISTORY: renal failure. Abnormal labs EXAM MEASUREMENTS: Right Kidney: 10.9 x 4.9 x 4.5 cm Left Kidney: 11.2 x 4.3 x 5.1 cm Right Kidney: No hydronephrosis or masses seen Left Kidney: No hydronephrosis or masses seen Bladder: distended, wnl as visualized Bilateral Jets seen There is no evidence for hydronephrosis at this point in time. No nephrolithiasis is seen. No alesha s are identified. The urinary bladder is anechoic. Bilateral ureteral jets are seen. IMPRESSION: No new hydronephrosis or nephrolithiasis. Exam is unchanged from the prior of 01/30/2017 and overall u nremarkable.
[2017-12-25 09:09] LABS: Anion Gap 11 mmol/L; Blood Urea Nitrogen 28 mg/dL (9-20); Calcium 9.5 mg/dL (8.4-10.2); Carbon Dioxide 26 mmol/L (22-30); Chloride 101 mmol/L (98-107); Glucose 130 mg/dL (74-99); Potassium 5.1 mmol/L (3.5-5.1); Sodium 138 mmol/L (137-145)
[2017-12-25 15:06] VITALS: BP 132/90; PULSE 83; TEMP 98
--- NOTE | 2017-12-26 01:33 | DS ---
DISCHARGE SUMMARY DATE OF ADMISSION: December 23, 2017. DATE OF DISCHARGE: December 25, 2017. FINAL DIAGNOSES: 1. Acute angioedema in a patient probably taking from lisinopril. 2. Acute renal failure could be prerenal. 3. Chronic obstructive pulmonary disease in a current smoker. 4. Essential hypertension. 5. Anxiety not otherwise specified. HOSPITAL COURSE: This patient presented with acute angioedema affecting the upper part of the face, primarily the upper lip. It did not respond, went to the cocktail of steroids, H1 and H2 noble. Also had acute renal failure. Lisinopril was discontinued. The patient is given IV fluids. Creatinine did drop down from 1.7 to 1.07. The patient's blood pressure is good. His lisinopril has now been held off. Blood pressure may again be addressed as an outpatient if need be. EXAM: Lungs are clear. Cardiovascular: 1st and 2nd sounds normal. DISCHARGE MEDICATIONS: 1. Multivitamin 1 tablet p.o. daily. 2. Desyrel 100 mg q.h.s. 3. Depakote 500 mg p.o. t.i.d. 4. EpiPen p.r.n. 5. Melatonin 3 mg q.h.s. p.r.n. 6. Nicotine patch 14. 7. Benadryl 25 mg q.6h 8 capsules. 8. Prednisone rapid taper. Follow up with Dr. Polo on January 01, 2018. Copy to Dr. Polo. MMGIGIL / IJN: [id number] /
== END 2017-12-25 17:36 | disposition home or self-care (01) ==
LOC: EC 19:49 → 4MS4W 21:00
PROVIDERS: ADMIT Hospitalist; ATTEND Hospitalist
DX: T78.3XXA Angioneurotic edema, initial encounter (principal); N17.9 Acute kidney failure, unspecified; I10 Essential (primary) hypertension; G40.909 Epilepsy, unspecified, not intractable, without status epilepticus; J44.9 Chronic obstructive pulmonary disease, unspecified; M19.90 Unspecified osteoarthritis, unspecified site; F41.9 Anxiety disorder, unspecified; F32.9 Major depressive disorder, single episode, unspecified; F17.200 Nicotine dependence, unspecified, uncomplicated; Z79.899 Other long term (current) drug therapy; Z88.8 Allergy status to other drugs, medicaments and biological substances; Z91.018 Allergy to other foods; Z80.42 Family history of malignant neoplasm of prostate; Z90.49 Acquired absence of other specified parts of digestive tract
CPT/HCPCS: 99285 ×2; 96374 ×2; 96375 ×4; 96361; 96372 ×2; 36415; 94760 ×3; 94762 ×3; 80053; 80048; 82550; 83735; 85025; 81003; 76770; G0378 ×3; S4990 ×2; J1200; J2930 ×2; J1650 ×2; J7512 ×2

== ENCOUNTER → 2020-03-19 | Outpatient (CLI) | payer OTHER ==
--- NOTE | 2020-03-19 22:29 | CONS ---
CONSULTATION DATE OF SERVICE: 03/19/2020 This patient is a 40-year-old gentleman who has been evaluated in the sleep center for possible obstructive sleep apnea-hypopnea syndrome. HISTORY OF PRESENT ILLNESS/SLEEP-WAKE EVALUATION: About 4 years ago the patient had a home sleep apnea test which showed obstructive sleep apnea-hypopnea syndrome. According to the patient, he was started on treatment with CPAP at that time, but after that his CPAP unit was taken from him, probably because he did not use it enough. At present his sleep schedule is from 10 p.m. to 8 a.m. Sometimes he has problems with falling asleep. He has a TV set in the bedroom. He usually sleeps on the side position by himself. He snores and wakes up from sleep gasping for air, dry mouth, panic attack, witnessed episodes of stopped breathing during sleep, sweating. Two episodes of nocturia at night. During the day the patient has difficulties paying attention. He has problems with concentration, irritability, depression and anxiety. [place] Sleepiness Scale is 9. PAST MEDICAL HISTORY: Positive for hypertension, epilepsy, last episode of possible tonic-clonic seizures several years ago. PAST SURGICAL HISTORY: Cholecystectomy, right hand surgery. MEDICATIONS: 1. Divalproex 500 mg 3 times a day. 2. Losartan mg once a day. 3. Escitalopram 30 mg once a day. 4. Trazodone 100 mg at nighttime. SOCIAL HISTORY: Positive for smoking about half a pack a day for 15 years, presently using nicotine patch, according to patient. Alcohol consumption occasional. FAMILY HISTORY: Heart problems, arthritis, asthma, sleep apnea, snoring, headaches, restless legs. REVIEW OF SYSTEMS: Awakenings from sleep, tiredness and sleepiness during the day, sometimes difficulty initiating sleep at night. PHYSICAL EXAMINATION: GENERAL: A pleasant gentleman without distress. VITAL SIGNS: BP 119/80, HR 77, RR 14, height 5 feet 9 inches, weight 167, BMI 24.5, temperature 98.0, oxygen saturation at room air 99%. HEENT: PERRLA, EOMI. Evaluation of oropharynx showed tongue protrudes midline. Extremely low position of soft palate. Mallampati IV. NECK: Supple. No JVD. Thyroid is not palpable. Neck measures 15 inches in circumference. LUNGS: Clear to percussion and to auscultation. Good air exchange. No wheezing or rhonchi. HEART: S1, S2 regular. No murmurs, gallops or rubs. ABDOMEN: Soft, nontender. No organomegaly. Bowel sounds are heard in all four quadrants. EXTREMITIES: No clubbing or cyanosis. INSPECTOR DIALS: Awake, alert, and oriented X3. Cranial nerves 2 to 7 intact. There is no fasciculation or atrophy. noted. No focal deficits observed. IMPRESSION: 1. Snoring, witnessed episodes of stopped breathing during sleep, awakenings from sleep gasping for air, extremely low position of soft palate, history of obstructive sleep apnea-hypopnea syndrome in the past, sleepiness; obstructive sleep apnea-hypopnea syndrome. 2. Difficulties initiating sleep. Psychophysiological insomnia. 3. Hypertension. 4. Status post cholecystectomy. 5. Epilepsy. Last episode questionable tonic-clonic seizures several years ago. 6. Status post right hand surgery. 7. Status post cholecystectomy. PLAN: 1. Polysomnography for evaluation of patient's breathing during sleep. 2. CPAP/BiPAP titration if sleep study confirms obstructive sleep apnea-hypopnea syndrome. 3. Preferable position during sleep on the side. 4. No driving if patient feels any sleepiness. 5. I will see patient for follow up visit to explain results of testing and following plan. 6. Stimulus control, paradoxical intention, worry time for treatment of insomnia. Thank you very much for referring this patient for consultation. Sincerely, Scott Abad MD, PhD, FAASM Diplomat of [employer] [facility] [place] MMODL / IJN: [id number] /
== END | disposition home or self-care (01) ==
LOC: SLEEP 15:07
PROVIDERS: ATTEND Internal Medicine
DX: G47.33 Obstructive sleep apnea (adult) (pediatric) (principal); G40.909 Epilepsy, unspecified, not intractable, without status epilepticus; I10 Essential (primary) hypertension; F51.04 Psychophysiologic insomnia; Z90.49 Acquired absence of other specified parts of digestive tract; Z98.890 Other specified postprocedural states
CPT/HCPCS: 99211

== ENCOUNTER → 2020-05-27 | Outpatient (CLI) | payer OTHER ==
--- NOTE | 2020-05-27 20:23 | SFUN ---
SLEEP CENTER FOLLOW UP NOTE DATE OF SERVICE: 05/27/2020 This patient is a 40-year-old gentleman who comes to the sleep center to discuss results of his recent polysomnogram. I discussed the results of his sleep study with the patient in detail. No significant respiratory abnormalities have been documented. Total apnea-hypopnea index 3.1, lowest oxygen level 89.2. EMG showed 25.8 periodic limb movements per hour with 2.7 microarousals per hour. At present the patient on treatment with losartan 50 mg once a day, escitalopram 20 mg daily, trazodone 100 mg daily, divalproex 500 mg 3 times a day. PHYSICAL EXAMINATION: GENERAL: A pleasant patient in no distress. VITAL SIGNS: BP 128/80, HR 80, RR 15, height 5 feet 9 inches, weight 169, BMI 24.9, temperature 97.2, oxygen saturation at room air 98%. HEENT: PERRLA, EOMI. Evaluation of oropharynx showed tongue protrudes midline. Low position of soft palate. NECK: Supple. No JVD. Thyroid is not palpable. LUNGS: Clear to percussion and to auscultation. Good air exchange. No wheezing or rhonchi. HEART: S1, S2 regular. No murmurs, gallops or rubs. ABDOMEN: Soft. No tenderness. EXTREMITIES: No clubbing or cyanosis. LOFTER: Awake, alert, and oriented X3. Cranial nerves 2 to 7 intact. There is no fasciculation or atrophy. noted. No focal deficits observed. IMPRESSION: 1. Snoring. No significant respiratory abnormalities have been documented during the polysomnogram. 2. Mild periodic limb movements have been documented. 3. Some difficulties with initiation of sleep. 4. Hypertension. 5. Status post cholecystectomy. 6. History of epilepsy. 7. Status post right hand surgery. 8. Status post cholecystectomy. PLAN: 1. Sleep hygiene with regular time in bed for 7-1/2 hours. 2. Patient may use bright light in the morning to avoid sleep delay. I discussed with him the possibility of using a light machine. 3. Psychological techniques for treatment of insomnia, stimulus control, avoid using the bedroom for anything else except sleep. 4. Precautions related to driving. No driving if feeling any sleepiness. Thank you very much for allowing me to participate in the management of your patient. Sincerely, Scott Abad MD, PhD, FAASM Diplomat of [employer] [place] [employer] [place] [employer] [place] [employer] Operator [facility] [place] MMODL / BHARATN: [id number] /
== END | disposition home or self-care (01) ==
LOC: SLEEP 11:47
PROVIDERS: ATTEND Internal Medicine
DX: R06.83 Snoring (principal); I10 Essential (primary) hypertension; G47.61 Periodic limb movement disorder; Z86.69 Personal history of other diseases of the nervous system and sense organs; Z90.49 Acquired absence of other specified parts of digestive tract; Z98.890 Other specified postprocedural states

== ENCOUNTER → 2020-08-20 | Outpatient (CLI) | payer OTHER ==
--- NOTE | 2020-08-21 08:05 | MR ---
EXAMINATION TYPE: MR hip RT wo con DATE OF EXAM: 08/20/2020 COMPARISON: Correlation outside radiograph 08/10/2020 HISTORY: 40-year-old male Rt hip pain TECHNIQUE: Multiplanar, multisequence images of the right hip were obtained without IV contrast. FINDINGS: Imaging shows large areas of bilateral femoral head AVN with serpiginous double line sign extending t hroughout the femoral heads on both sides. However, in addition, there is associated edema extending throughout the right femoral head and neck and crescentic subarticular fracture and articular surface collapse of the superior weight-bearing as pect of the femoral head. Secondary slightly flattened appearance to the superior aspect of the femor al head. There is some patchy increased signal on the acetabular side of the joint as well suggesting probably at least moderate right hip all leg. There is a moderate to large right-sided joint effusion noted. SI joints and sacrum appear intact. The rectus femoris and hamstring origins as well as the gluteal and iliopsoas insertions appear intac t. Symmetric course, caliber, and signal intensity of the sciatic nerves. There is patchy red marrow hyperplasia. No suspicious bone marrow replacement. No abnormal fluid collection in the pelvis or pelvic lymphadenopathy. IMPRESSION: 1. Chronic bilateral femoral head AVN but complicated on the right with subarticular fracture and col lapse of the superior weight-bearing aspect of the femoral head. 2. Secondary moderate to large right hip joint effusion and suspect at least moderate underlying righ t hip osteoarthrosis. 3. Correlate for risk factors for AVN in this patient
== END | disposition home or self-care (01) ==
LOC: RADMRIMAIN 13:08
PROVIDERS: ATTEND Orthopaedic Surgery
DX: M87.851 Other osteonecrosis, right femur (principal); M25.451 Effusion, right hip; S72.8X1A Other fracture of right femur, initial encounter for closed fracture

== ENCOUNTER → 2020-09-28 | Outpatient (CLI) | payer OTHER ==
[2020-09-28 13:14] LABS: Basophils % (A) 1 %; Eosinophils # (A) 0.2 k/uL (0-0.7); Eosinophils % (A) 2 %; HCT 39.9 % (39.0-53.0); HGB 14.4 gm/dL (13.0-17.5); Lymphocytes # (A) 1.1 k/uL (1.0-4.8); Lymphocytes % (A) 16 %; MCHC 36.2 g/dL (31.0-37.0); MCV 102.5 fL (80.0-100.0); Mean Platelet Volume 7.8; Monocytes # (A) 0.6 k/uL (0-1.0); Monocytes % (A) 8 %; Neutrophils % (A) 72 %; Platelet Count 253 k/uL (150-450); RBC 3.89 m/uL (4.30-5.90); RDW 12.3 % (11.5-15.5)
[2020-09-28 13:28] LABS: Partial Thromboplastin Time 23.3 sec (22.0-30.0); Prothrombin Time 10.5 sec (9.0-12.0)
[2020-09-28 13:34] LABS: ALT 21 U/L (4-49); AST 28 U/L (17-59); African American GFR (CKD) >90 (>60 ml/min/1.73 sqM); Albumin 4.5 g/dL (3.5-5.0); Alkaline Phosphatase 41 U/L (38-126); Anion Gap 13 mmol/L; Blood Urea Nitrogen 27 mg/dL (9-20); Calcium 9.8 mg/dL (8.4-10.2); Carbon Dioxide 26 mmol/L (22-30); Chloride 100 mmol/L (98-107); Glucose 92 mg/dL (74-99); Magnesium 1.5 mg/dL (1.6-2.3); Non-African American GFR(CKD) >90 (>60 ml/min/1.73 sqM); Potassium 4.2 mmol/L (3.5-5.1); Sodium 139 mmol/L (137-145); Total Bilirubin 0.8 mg/dL (0.2-1.3); Total Protein 7.4 g/dL (6.3-8.2)
[2020-09-28 19:21] LABS: Folate, Serum 5.4 ng/mL
== END | disposition home or self-care (01) ==
LOC: LABWHC1 12:18
PROVIDERS: ATTEND Orthopaedic Surgery
DX: Z01.818 Encounter for other preprocedural examination (principal); M16.11 Unilateral primary osteoarthritis, right hip; Z01.812 Encounter for preprocedural laboratory examination; I10 Essential (primary) hypertension; F10.10 Alcohol abuse, uncomplicated
CPT/HCPCS: 36415; 80053; 82607; 82746; 83735; 85025; 85610; 85730; 86850; 86900; 86901; 87070

== ENCOUNTER 2020-10-06 11:14 | Observation (INO) | payer OTHER ==
[2020-10-01 11:33] VITALS: BMI 24.3
--- NOTE | 2020-10-05 08:45 | HP ---
HISTORY AND PHYSICAL CHIEF COMPLAINT: Right hip pain. HISTORY OF PRESENT ILLNESS: Patient is a 40-year-old, unemployed male who presents with progressive right hip pain for the past several years, worsening recently. He notes diffuse pain with any weightbearing activities. He has been limping and using a cane. He has been taking anti-inflammatories without much relief. He notes he did dislocate his hip 20 years ago. PAST MEDICAL HISTORY: Significant for seizure disorder, hypertension, and depression along with anxiety disorder. PAST SURGICAL HISTORY: Negative. CURRENT MEDICATIONS: 1. Divalproex. 2. Losartan. 3. Meloxicam. 4. Trazodone. 5. Escitalopram. ALLERGIES: He denies drug allergies. FAMILY HISTORY: Family history is noncontributory. SOCIAL HISTORY: Significant for previous alcohol abuse and current tobacco use. 16 POINT REVIEW OF SYSTEMS: Sixteen-point review of systems otherwise is reviewed and is noncontributory. PHYSICAL EXAMINATION: On examination, the patient is approximately 5 feet 10 inches, 186 pounds, of mesomorphic habitus. HEENT exam is nonfocal. Neck is supple. Passive motion of the right hip flexion 85 degrees, external rotation with hip flex 65 degrees, internal rotation 10 degrees with pain. Clinically, he has got 1 cm shortening of the right lower extremity compared to left. He does have an antalgic gait pattern. His distal neurovascular exam appears intact in the right lower extremity. Previous x-rays of the right hip obtained in the office show severe joint space narrowing with collapse of the femoral head. MRI report of the right hip shows stage IV right hip avascular necrosis. IMPRESSION: 1. Right hip stage IV avascular necrosis. 2. Seizure disorder. 3. History of alcohol abuse. RECOMMENDATIONS: I talked to the patient at length regarding his condition along with treatment options. At this point, he is quite symptomatic and limited because of pain. After thorough discussion, he opts to proceed with surgery. We will plan to proceed with right total hip arthroplasty utilizing a direct lateral approach. Risks and benefits were discussed at length in layman's terms. We will institute DVT prophylaxis postoperatively. MMODL / IJN: [id number] /
[~2020-10-06 11:14] MED LIST: ACETAMINOPHEN TAB 500 MG TAB PO PRN; DEXAMETHASONE SOD PHOSPHATE 4 MG/ML 1 ML VIAL IV ONE; HYDROmorphone 0.5 MG/0.5 ML SYRINGE IVP PRN; LIDOCAINE 1% (10MG/ML) FOR IV START INTRADERMA PRN; MELOXICAM 7.5 MG TAB PO PRN; ONDANSETRON 4 MG/2 ML VIAL IVP PRN; TRANEXAMIC ACID 1,000 MG in SODIUM CHLORIDE 0.9% 100 ML IVPB PRN
[2020-10-06] MEDS: LACTATED RINGERS 1,000 ML IV SCH (12:14)
[2020-10-06] MEDS ORDERED: fentaNYL (PF) 50 MCG/ML 2 ML AMP IVP ONE (12:30)
[2020-10-06] MEDS ORDERED: MIDAZOLAM 2 MG/2 ML VIAL IVP ONE (12:30)
--- NOTE | 2020-10-06 12:46 | P.ANPRN ---
Procedure Note - Anesthesia - Nerve Block Performed Right Erector Spinae Single Time Out Performed: Yes (1230) Date of Procedure: 10/06/20 Procedure Start Time: 12:31 Procedure Stop Time: 12:41 Location of Patient: PreOp Indication: Acute Post-Operative Pain, Analgesia, Dx/Pain Location, Requested by Surgeon Specifically requested for management of pain by : Mau Hillman Sedation Type: Sedate with meaningful contact maintained Preparation: Sterile Prep Position: Supine Catheter: None Needle Types: Pajunk Needle Gauge: 20 Ultrasound used to visualize needle placement: Yes Ultrasound used to observe medication spread: Yes Injectate: Other (see comment) (0.25% ropivacaine 30 mL) Blood Aspirated: No Pain Paresthesia on Injection Noted: No Resistance on Injection: Normal Image Stored and Saved: Yes Events: Uneventful and Well Tolerated
[2020-10-06] MEDS ORDERED: MIDAZOLAM 2 MG/2 ML VIAL ONE (13:47)
[2020-10-06] MEDS ORDERED: ROPIVACAINE 5 MG/ML 30 ML VIAL ONE (13:47)
[2020-10-06] MEDS ORDERED: SODIUM CHLORIDE 0.9% (PF) 10 ML VIAL ONE (13:47)
[2020-10-06] MEDS ORDERED: SODIUM CHLORIDE 0.9% 100 ML BAG ONE (13:47)
[2020-10-06] MEDS ORDERED: PROPOFOL 10 MG/ML 20 ML VIAL IV ONE (13:47)
[2020-10-06] MEDS ORDERED: TRANEXAMIC ACID 1,000 MG/10 ML VIAL ONE (13:47)
[2020-10-06] MEDS ORDERED: ceFAZolin 3,000 MG in SODIUM CHLORIDE 0.9% IRRIGATIO 3,000 ML IRRIGATION ONE (14:18)
[2020-10-06] MEDS ORDERED: ACETAMINOPHEN TAB 325 MG TAB PO PRN (15:18)
[2020-10-06] MEDS ORDERED: MAGNESIUM HYDROXIDE 2,400 MG/10 ML CUP PO PRN (15:18)
[2020-10-06] MEDS ORDERED: hydrOXYzine pamoate 25 MG CAP PO PRN (15:18)
[2020-10-06] MEDS ORDERED: HYDROmorphone 1 MG/ML 1 ML SYRINGE IVP PRN (15:18)
[2020-10-06] MEDS ORDERED: NALOXONE 0.4 MG/ML 1 ML VIAL IV PRN (15:18)
[2020-10-06] MEDS ORDERED: HYDROcodone/APAP 7.5-325MG 1 EACH TAB PO PRN (15:20)
--- NOTE | 2020-10-06 15:51 | P.OP ---
Date of Procedure: 10/06/20 Preoperative Diagnosis: Avascular necrosis right hipstage IV Postoperative Diagnosis: Same Procedure(s) Performed: Right total hip arthroplastypress-fitlateral approach Implants: Depuy Corail size 12 standard collared femoral stem, 36mm +1.5 cobalt chrome femoral head, 52 mm Riley acetabular shell with neutral polyethylene liner. Anesthesia: spinal Surgeon: Mau Hillman Tile Machine Operator #1: Benjie Pastor Tile Machine Operator #2: Juan Silva Estimated Blood Loss (ml): 100 Pathology: other (Femoral head) Condition: stable Disposition: PACU Indications for Procedure: The patient is a 40-year-old male who presents with progressive right hip pain secondary to avascular necrosis and femoral head collapse. A discussion of the risks and benefits of operative intervention was made with the patient. He opted to proceed with surgery. Operative risks to include infection, neurovascular injury, development of blood clots, possible fracture, possible leg length discrepancy, possible instability need for subsequent procedures was discussed. Informed consent was obtained. Operative Findings: As below Description of Procedure: The patient was brought to the operating room, and after induction of spinal anesthesia was placed in a lateral decubitus position. The bony prominences were appropriately padded. The pelvis was stable perpendicular to the floor with a pegboard. The right lower extremity was prepped and draped in normal fashion. A 12 cm incision was then made centered over the greater trochanter extending superiorly to level the ASIS and distally in line with the femoral shaft. The skin and subcutaneous tissues were divided sharply. Electrocautery was used for hemostasis. The fascia miguel and gluteus quentin fascia was split in line with the skin incision. The muscle fibers were bluntly dissected proximally. A self-retaining retractor was placed. The anterior and posterior margins of the gluteus medius muscles identified and the anterior two thirds was detached from the greater trochanter with electrocautery. The gluteus minimus tendon was identified and detached in a similar fashion. A wide capsulotomy was performed. The femoral neck fracture was identified in the lower neck cut was made approximately 1 1/2 cm above the level of the lesser trochanter with a sagittal saw at a 45 the shaft. The head was then extracted with a corkscrew. Attention was then paid towards preparing the acetabular. Anterior and posterior retractors were placed. The remaining capsular labral tissues debrided sharply clearly defining the acetabular margins. Began reaming with a 47 mm reamer taking care to initially medialize, then reaming at 45 of abduction and 20 of anteversion. Sequential reaming is performed up to 51 mm. This was down to bleeding bony surface. A trial 52 mm acetabular shell was inserted at 45 of abduction and 20 of anteversion. This was fully seated. There was good rim fit and stability. A neutral polyethylene liner was then impacted. Care taken to avoid any soft tissue interposition. Attention was then paid towards preparing the proximal femur. A box chisel was used to open the metaphyseal region. A canal finder was used to find the femoral canal. Sequential broaching was performed up to a size 12. This is placed in 15 of anteversion with the leg perpendicular floor judging off the trans-epicondylar axis. There is good rotational stability. A calcar mill was used to fashion the medial calcar. A trial standard neck along with a 36 mm + 5 trial head was placed. The hip was gently reduced. It was taken through range of motion. I felt to be stable in flexion and extension with internal and external rotation. I felt there was adequate spiritism of soft tissue tension. The hip was gently dislocated. The trial components removed. Pulsatile lavage was utilized. The final size 12 standard collared femoral stem was inserted again with the leg perpendicular to the floor in 15 of anteversion. Again there was good rotational stability. A 36 mm + 5 cobalt chrome femoral head was gently impacted. The hip was gently reduced. Again it was taken through motion and felt to be stable in flexion and extension with internal and external rotation. Pulsatile lavage was again utilized. With the leg in abduction the gluteus minimus and medius tendons reattached to the greater trochanter with #2 Ethibond suture. There was minimal drainage therefore a deep drain was not placed. The fascia miguel and gluteus quentin fascia was closed with #2 Ethibond suture. The subcutaneous tissues were reapproximated interrupted 2-0 Vicryl sutures. The skin was reapproximated with 3-0 subcuticular strata fix suture. Skin tape and adhesive was applied. A sterile dressing was applied. The patient was awoken from sedation and transferred to recovery room in good condition. Blood loss was estimated 100 mL. No complications were incurred. Sponge and needle counts were correct in the case. Benjie Pastor and Eusebio FAUSTIN assisted during the major composes case to include exposure, implantation, and closure.
--- NOTE | 2020-10-06 16:28 | XR ---
EXAMINATION TYPE: XR Hip Limited RT DATE OF EXAM: 10/06/2020 CLINICAL HISTORY: Right hip pain and osteoarthritis. TECHNIQUE: Single AP portable view of right hip is obtained immediately postoperatively. COMPARISON: MRI right hip August 20, 2020. FINDINGS: Metallic hardware from right hip arthroplasty is seen and appears satisfactory in alignment and position. Overlying clothing or blanket material is present. IMPRESSION: Metallic hardware from right hip arthroplasty is satisfactory in position.
[2020-10-06] MEDS ORDERED: SODIUM CHLORIDE 0.9% 1,000 ML IV SCH (17:00)
[2020-10-06] MEDS ORDERED: LACTATED RINGERS 1,000 ML IV ONE (17:14)
[2020-10-06] MEDS ORDERED: LORazepam 1 MG TAB PO PRN (19:01)
[2020-10-06] MEDS ORDERED: Potassium Replacement Protocol 1 EACH MISC MISCELLANE PRN (19:01)
[2020-10-06] MEDS ORDERED: Magnesium Replacement Protocol 1 EACH MISC MISCELLANE PRN (19:01)
[2020-10-06] MEDS ORDERED: SENNOSIDES-DOCUSATE SODIUM 1 EACH TAB PO SCH (21:00)
[2020-10-06] MEDS ORDERED: traZODone HCL 100 MG TAB PO SCH (21:00)
[2020-10-06] MEDS: NICOTINE 14MG/24HR PATCH TRANSDERM SCH (21:14)
[2020-10-06] MEDS: DIVALPROEX 500 MG TABLET.DR PO SCH ×2 (21:15→22:23)
--- NOTE | 2020-10-06 21:30 | CONS ---
CONSULTATION DATE OF SERVICE: 10/06/2020 I am covering for Dr. Tucker. REASON FOR CONSULTATION: Advice regarding asthma and hypertension, requested by Dr. Hillman. HISTORY OF PRESENT ILLNESS: This 40-year-old gentleman with a past medical history of asthma, hypertension, history DJD, seizure disorder, underwent right total hip joint arthroplasty. The patient tolerated the procedure well. There is no history of fever, rigors. No history of headache, loss of consciousness, seizures at this time. PAST MEDICAL HISTORY: History of asthma, hypertension, DJD, seizure disorder, sleep apnea. MEDICATIONS: Home medications are: Trazodone, Habitrol 14, meloxicam, losartan, Lexapro, Depakote and Tylenol. ALLERGIES: LISINOPRIL AND HOT SAUCE. FAMILY HISTORY: History of prostate cancer in the family. SOCIAL HISTORY: Previous history of smoking. No history of current smoking or alcohol. REVIEW OF SYSTEMS: ENT: No diminished vision. No diminished hearing. Cardio system: No angina. Respiration: No cough. GI no nausea or vomiting. no dysuria. NERVOUS SYSTEM: As mentioned earlier. ALLERGY/IMMUNOLOGY: No asthma or hayfever. MUSCULOSKELETAL as mentioned HEMATOLOGY/ONCOLOGY: No history of anemia. ENDOCRINE: No history of diabetes or hypothyroidism. CONSTITUTIONAL: As mentioned earlier. DERMATOLOGY: Negative. RHEUMATOLOGY: Negative. PSYCHIATRY: As mentioned earlier. PHYSICAL EXAMINATION: The patient is alert and oriented times three. Pulse 52. Blood pressure 130/70, respirations 16, temperature is normal. Pulse ox 98% on room air. HEENT is conjunctivae normal. NECK: No JVD. CARDIOVASCULAR: S1, S2. RESPIRATION: Breath sounds diminished in the bases. No rhonchi. No crackles. ABDOMEN: Soft. LEGS status post surgery. NERVOUS SYSTEM: No focal deficits. SKIN: No ulcer, rash or bleeding. LABS: Recent labs MCV 102.5. ASSESSMENT: 1. Status post right total hip joint arthroplasty. 2. History of asthma. 3. Hypertension. 4. History of degenerative joint disease. 5. History of seizures. 6. Obstructive sleep apnea. 7. History of hypomagnesemia. 8. Cholecystectomy. 9. History of anxiety, depression. 10.History of nicotine dependence. 11.FULL CODE. RECOMMENDATIONS AND DISCUSSION: This 40-year-old gentleman who presented after surgery, at this time, I recommend to continue the treatment, resume the home medications. Also recommend checking the magnesium and replacement protocol. Otherwise Ativan may be used p.r.n. DVT prophylaxis. We will follow the patient closely. Thank you Dr. Hillman, for letting us participate in the care of this patient. DAYNE / BRE: [id number] /
[2020-10-06] MEDS: HYDROcodone/APAP 7.5-325MG 1 EACH TAB PO PRN (21:33)
[2020-10-07] MEDS: HYDROmorphone 0.5 MG/0.5 ML SYRINGE IVP PRN ×2 (01:52→09:28)
[2020-10-07] MEDS: HYDROcodone/APAP 7.5-325MG 1 EACH TAB PO PRN ×2 (05:07→14:08)
[2020-10-07] MEDS: LACTATED RINGERS 1,000 ML IV SCH (05:26)
[2020-10-07 06:52] LABS: Basophils % (A) 0 %; Eosinophils % (A) 0 %; HCT 34.9 % (39.0-53.0); HGB 12.3 gm/dL (13.0-17.5); Lymphocytes # (A) 0.9 k/uL (1.0-4.8); Lymphocytes % (A) 9 %; MCH 37.5 pg (25.0-35.0); MCHC 35.4 g/dL (31.0-37.0); Macrocytosis Slight; Monocytes # (A) 0.8 k/uL (0-1.0); Monocytes % (A) 8 %; Neutrophils # (A) 8.9 k/uL (1.3-7.7); Neutrophils % (A) 83 %; Platelet Count 200 k/uL (150-450); RBC 3.29 m/uL (4.30-5.90); RDW 12.3 % (11.5-15.5); WBC 10.8 k/uL (3.8-10.6)
[2020-10-07] MEDS: DIVALPROEX 500 MG TABLET.DR PO SCH (08:26)
[2020-10-07] MEDS: NICOTINE 14MG/24HR PATCH TRANSDERM SCH (08:27)
[2020-10-07] MEDS ORDERED: RIVAROXABAN 10 MG TAB PO SCH (09:00)
[2020-10-07] MEDS ORDERED: FAMOTIDINE 20 MG TAB PO SCH (09:00)
[2020-10-07] MEDS ORDERED: LOSARTAN 50 MG TAB PO SCH (09:00)
--- NOTE | 2020-10-07 12:16 | P.DS ---
Providers Date of admission: 10/07/20 10:43 Expected date of discharge: 10/07/20 Attending physician: Mau Hillman Consults: 10/06/20 15:18 Consult Physician Routine Consulting Provider: Andre Tucker Consult Reason/Comments: medical management Do you want consulting provider notified?: Yes Primary care physician: Vel Hughes [facility] Course: Date of admission: 10/06/2020 Date of discharge: 10/07/2020 Admission diagnosis: Right hip osteoarthritis Discharge diagnosis: Same Attending physician: Dr. Hillman Surgical procedures: Right total hip arthroplasty Brief history: Patient is a for 40-year-old male with a history of progressive primary right hip osteoarthritis. At this point patient has failed conservative treatment measures and has opted to proceed with a elective right total hip arthroplasty. Hospital course: Details of patient's surgery can be found in operative report. Patient tolerated the procedure well and was subsequently transported to orthopedic floor. Patient's orthopeidc and medical care was provided daily. Patient had daily laboratory tests performed for evaluation of overall blood counts. Patient had daily physical therapy to include strengthening range of motion as well as education with walker ambulation. Patient was treated with Xarelto for their postoperative DVT prophylaxis during their inpatient stay. Patient was noted to have a relatively uneventful postoperative course. Patient reported satisfactory pain control with oral pain medications by postoperative day 1. Patient showed satisfactory progress with physical therapy. Patient moved steadily through the program and had no difficulty meeting the goals by postoperative day 1. Given patient's otherwise satisfactory course and having met physical therapy goals, plan is to discharge patient home on postoperative day 1. Discharge condition/disposition: Patient will be discharged home in stable condition. Discharge medications: Instructions are given on resumption of patient's normal daily medications per primary care recommendation, in addition patient will be prescribed [place]men[place] 7.5 mg/325 mg; Eliquis 2.5 mg twice a day 15 days, Colace 100 mg. Discharge instructions: 1. Wound care and infection precautions, keep incision dry and covered while showering, no lotions, creams, moisturizers. No soaking, tubs, pools, hottubs. Do not scrub over the incision. 2. Weight-bear as tolerated with walker / cane until follow-up. 3. Ice and elevate when necessary. Do not exceed 20 minutes per hour with ice pack. 4. Utilize compression sleeve until seen at first follow up appointment. 5. Visiting nursing care. 6. Home physical therapy. 7. Pain meds and anticoagulants per prescription. 8. Pain medication has potential to cause constipation. Increase oral fluid and fiber intake. Contact primary care provider if you have not had a bowel movement within 48 hours after discharge 9. No anti-inflammatory medication until discussed at first post operative visit, this including Motrin, Aleve, Mobic, Diclofenac. 10. Follow up in office at 2 weeks postop with Eusebio Silva PA-C / Benjie Pastor PA-C 11. Follow up with your primary care doctor 7-10 days after discharge. 12. Contact [facility] with any questions, . Assessment: Right hip osteoarthritis Procedures: Right total hip arthroplasty Patient Condition at Discharge: Good Plan - Discharge Summary Discharge Rx Participant: No New Discharge Prescriptions: New Docusate [Colace] 100 mg PO DAILY #30 capsule HYDROcodone/APAP 7.5-325MG [Almen[place] 7.5] 1 each PO Q6HR PRN #24 tab PRN Reason: Pain Apixaban [Eliquis] 2.5 mg PO BID #60 tab No Action traZODone HCL [Desyrel] 100 mg PO HS Divalproex [Depakote] 500 mg PO TID #90 tab Nicotine 14Mg/24Hr Patch [Habitrol] 1 patch TRANSDERM DAILY #14 patch Losartan Potassium 50 mg PO QAM Meloxicam 15 mg PO DAILY Escitalopram [Lexapro] 20 mg PO 1600 Acetaminophen [Acetaminophen 8 Hour] 650 mg PO Q8H PRN PRN Reason: Pain Discharge Medication List traZODone HCL [Desyrel] 100 mg PO HS 01/30/17 [History] Divalproex [Depakote] 500 mg PO TID #90 tab 02/02/17 [Rx] Nicotine 14Mg/24Hr Patch [Habitrol] 1 patch TRANSDERM DAILY #14 patch 12/25/17 [Rx] Acetaminophen [Acetaminophen 8 Hour] 650 mg PO Q8H PRN 10/01/20 [History] Escitalopram [Lexapro] 20 mg PO 1600 10/01/20 [History] Losartan Potassium 50 mg PO QAM 10/01/20 [History] Meloxicam 15 mg PO DAILY 10/01/20 [History] Apixaban [Eliquis] 2.5 mg PO BID #60 tab 10/07/20 [Rx] Docusate [Colace] 100 mg PO DAILY #30 capsule 10/07/20 [Rx] HYDROcodone/APAP 7.5-325MG [Almen[place] 7.5] 1 each PO Q6HR PRN #24 tab 10/07/20 [Rx] Follow up Appointment(s)/Referral(s): Juan Silva PAC [PHYSICIAN FLOOR ASSEMBLER] - 2 Weeks Activity/Diet/Wound Care/Special Instructions: Orthopedic Discharge Instructions: 1. Wound care and infection precautions, keep incision dry and covered while showering, no lotions, creams, moisturizers. No soaking, pools, hot tubs. Do not scrub over incision. 2. Weight-bear as tolerated with walker / cane until follow-up. 3. Ice and elevate when necessary. Do not exceed 20 minutes per hour with ice pack. 4. Utilize compression sleeve until seen at first follow up appointment. 5. Pain meds and anticoagulants per prescription. 6. Pain medication has potential to cause constipation. Increase oral fluid and fiber intake. Contact primary care provider if you have not had a bowel movement within 48 hours after discharge. 7. No anti-inflammatory medication until discussed at first post operative visit, this including Motrin, Aleve, Mobic, Diclofenac. 8. Follow up in office at 2 weeks postop with Eusebio Silva PA-C/Benjie Pastor PA-C 9. Follow up with your primary care doctor 7-10 days after discharge. 10. Contact [facility] with any questions, . Discharge Disposition: HOME SELF-CARE
--- NOTE | 2020-10-07 12:39 | P.PN ---
Subjective Progress Note Date: 10/07/20 Principal diagnosis: Right hip osteoarthritis Upon entering room patient was sitting in chair. Patient says he has been in minimal pain. He states physical therapy went well this morning while he was able to go up and down stairs. He says he has been using incentive spirometer every hour. He does mention he will need a walker without a seat to go home with. He says he would like to begin outpatient therapy right away. He denies any fever, chest pain, shortness of breath, vision changes. He says someone does live with him at home and he is ready today to go home. Objective - Vital Signs Vital signs: Vital Signs Temp 97.9 F 10/07/20 04:59 Pulse 80 10/07/20 04:59 Resp 16 10/06/20 18:00 BP 110/70 10/07/20 04:59 Pulse Ox 96 10/07/20 04:59 Intake & Output 10/06/20 10/07/20 10/07/20 18:59 06:59 18:59 Intake Total 1051 Output Total 100 Balance 951 Weight 78 kg Intake: IV 1051 Output: Estimated Blood Loss 100 Other: # Bowel Movements 0 - Exam : Incision is clean, dry, and intact. The exofin fusion tape is in good condition. There is minimal soft tissue swelling and ecchymosis surrounding the medial and lateral aspects of the incision. Calf is soft, no tenderness with palpation. Plantar flexion, dorsiflexion, EHL, FHL are intact. Sensory exam to light touch throughout the extremity is intact, dorsal pedis pulses 2+. - Labs CBC & Chem 7: 10/07/20 05:49 Labs: Abnormal Lab Results - Last 24 Hours (Table) 10/06/20 10/07/20 10/07/20 Range/Units 19:08 05:49 05:49 WBC 10.8 H (3.8-10.6) k/uL RBC 3.29 L (4.30-5.90) m/uL Hgb 12.3 L (13.0-17.5) gm/dL Hct 34.9 L (39.0-53.0) % MCV 106.0 H (80.0-100.0) fL MCH 37.5 H (25.0-35.0) pg Neutrophils # 8.9 H (1.3-7.7) k/uL Lymphocytes # 0.9 L (1.0-4.8) k/uL Magnesium 1.4 L 1.3 L (1.6-2.3) mg/dL Assessment and Plan Plan: Assessment: Postoperative day 1 status post right total hip arthroplasty Plan: 1. Appreciate medical management 2. Pain managementstable at this time. Going home with [place] 7.5 mg/325 mg. Take stool softener as needed. 3. Continue with physical therapy, including gait/stair training. 4. Continue with daily Xarelto for DVT prophylaxis inpatient. Going home with Elqiuis 2.5 mg twice a day 2 weeks as outpatient 5. Discharge planning. 6. Anticipated discharge today, 10/07/2020. Time with Patient: Less than 30
--- NOTE | 2020-10-07 13:28 | PN ---
PROGRESS NOTE DATE OF SERVICE: 10/07/2020 I am covering for Dr. Tucker. This 40-year-old gentleman was admitted after right total hip joint arthroplasty, improving significantly. No chest pain. No palpitations. No fever. PHYSICAL EXAMINATION: On exam, alert and oriented x3. Pulse 80, blood pressure 110/70, respiration 20, temperature 97.9, pulse ox 96% on room air. HEENT: Conjunctivae normal. NECK: No jugular venous distention. CARDIOVASCULAR: S1, S2 muffled. RESPIRATORY: Breath sounds diminished at the bases. No rhonchi, no crackles. ABDOMEN: Soft. LEGS: Status post hip arthroplasty. LABS: WBC 10.8, hemoglobin 12.3. Magnesium is 1.3. ASSESSMENT: 1. Status post right total hip joint arthroplasty. 2. History of asthma. 3. Hypomagnesemia. 4. Hypertension. 5. History of degenerative joint disease. 6. History of seizures. 7. Obstructive sleep apnea. 8. Cholecystectomy. 9. History of anxiety, depression. 10.History of nicotine dependence. 11.FULL CODE. RECOMMENDATIONS AND DISCUSSION: Recommend to continue current medications, continue symptomatic treatment. Otherwise, continue with home medications. Magnesium supplementation. Closely follow with primary physician in the outpatient setting. Rest of the recommendations per Orthopedic Surgery. Further recommendations to follow. MMODL / IJN: [id number] /
[2020-10-07 15:01] VITALS: BP 110/70; PULSE 80; RESP 16; TEMP 97.9
[2020-10-07] MEDS ORDERED: ESCITALOPRAM 20 MG TAB PO SCH (16:00)
== END 2020-10-07 15:18 | disposition home or self-care (01) ==
LOC: OR 11:14 → 5NMEDONC 18:05 → OR 10-07 10:43
PROVIDERS: ADMIT Family Medicine; ATTEND Orthopaedic Surgery
DX: M16.11 Unilateral primary osteoarthritis, right hip (principal); M87.9 Osteonecrosis, unspecified; G40.909 Epilepsy, unspecified, not intractable, without status epilepticus; G47.33 Obstructive sleep apnea (adult) (pediatric); I10 Essential (primary) hypertension; J45.909 Unspecified asthma, uncomplicated; F41.9 Anxiety disorder, unspecified; F32.9 Major depressive disorder, single episode, unspecified; Z79.899 Other long term (current) drug therapy; Z87.891 Personal history of nicotine dependence; Z20.822 Contact with and (suspected) exposure to COVID-19; Z86.59 Personal history of other mental and behavioral disorders; Z90.49 Acquired absence of other specified parts of digestive tract; E83.42 Hypomagnesemia; Z79.1 Long term (current) use of non-steroidal anti-inflammatories (NSAID)
CPT/HCPCS: 97110; 97161; 97535; 97165; 64999; 76942; 83735 ×2; 85025; 87635; 73501; 27130; G0378; C1776; S4990 ×2; J2250; J1100; J0690 ×3; J2405; J3010; J1170; 86850; 86900; 86901; 88305; 88311

== ENCOUNTER 2022-04-09 17:22 | Inpatient (IN) | payer OTHER ==
--- NOTE | 2022-04-09 17:33 | ED ---
General Adult HPI - General Chief complaint: Chest Pain Stated complaint: Unable to eat or sleep/chest pain Time Seen by Provider: 04/09/22 17:31 Source: patient Mode of arrival: ambulatory Limitations: no limitations - History of Present Illness Initial comments: Patient presents to the ED with his father for evaluation. Patient states that he was vomiting last week, and he states that since then, he has had "a raw throat" and diffuse chest pain. Patient states that he notices this pain more with PO intake. Patient also states that he has not been sleeping well for the past few days. Patient denies feeling nauseated currently, and he denies having any vomiting since last week. Patient also denies having any chest pain currently. Patient denies alcohol or illicit drug use. Patient denies trauma or injury, fever or chills, headache, focal neuro deficit, neck/arm/jaw/back pain, pleuritic pain, dyspnea, cough or cold symptoms, palpitations, dizziness, abdominal pain, diarrhea or constipation, bloody or melanotic stool, hematemesis, dysuria or urinary symptoms, leg or calf swelling or pain, or any other symptoms or complaints. - Related Data Home Medications Medication Instructions Recorded Confirmed traZODone HCL [Desyrel] 100 mg PO HS 01/30/17 10/06/20 Acetaminophen [Acetaminophen 8 650 mg PO Q8H PRN 10/01/20 10/06/20 Hour] Escitalopram [Lexapro] 20 mg PO 1600 10/01/20 10/06/20 Losartan Potassium 50 mg PO QAM 10/01/20 10/06/20 Meloxicam 15 mg PO DAILY 10/01/20 10/06/20 Previous Rx's Medication Instructions Recorded Divalproex [Depakote] 500 mg PO TID #90 tab 02/02/17 Nicotine 14Mg/24Hr Patch [Habitrol] 1 patch TRANSDERM DAILY #14 patch 12/25/17 Apixaban [Eliquis] 2.5 mg PO BID #60 tab 10/07/20 Docusate [Colace] 100 mg PO DAILY #30 capsule 10/07/20 HYDROcodone/APAP 7.5-325MG [[place] 1 each PO Q6HR PRN #24 tab 10/07/20 7.5] Allergies Allergy/AdvReac Type Severity Reaction Status Date / Time lisinopril Allergy Swelling Verified 04/09/22 19:49 hot sauce Allergy Swelling Uncoded 04/09/22 17:29 Review of Systems ROS Statement: Those systems with pertinent positive or pertinent negative responses have been documented in the HPI. ROS Other: All systems not noted in ROS Statement are negative. Past Medical History Past Medical History: Asthma, Hypertension, Osteoarthritis (OA), Seizure Disorder, Sleep Apnea/CPAP/BIPAP Additional Past Medical History / Comment(s): Sleeping problems (no cpap), arthritis R hand, last seizure in december 2016, low magnesium frequently History of Any Multi-Drug Resistant Organisms: None Reported Past Surgical History: Cholecystectomy Additional Past Surgical History / Comment(s): R hand fracture repair. Past Anesthesia/Blood Transfusion Reactions: No Reported Reaction Additional Past Anesthesia/Blood Transfusion Reaction / Comment(s): woke up during hand surgery.no hx blood transfusion Past Psychological History: Anxiety, Depression Smoking Status: Current every day smoker Past Alcohol Use History: Occasional Past Drug Use History: None Reported - Past Family History Father Family Medical History: Cancer Additional Family Medical History / Comment(s): Prostate cancer. Mother History Unknown: Yes Family Medical History: No Reported History Additional Family Medical History / Comment(s): Pt states he does not have much contact with his mother. General Exam Limitations: no limitations General appearance: alert, in no apparent distress Head exam: Present: atraumatic, normocephalic Eye exam: Present: normal appearance, EOMI ENT exam: Present: mucous membranes dry Neck exam: Present: other (Trachea is in midline) Respiratory exam: Present: normal lung sounds bilaterally. Absent: respiratory distress, wheezes, rales, rhonchi, stridor, chest wall tenderness Cardiovascular Exam: Present: regular rate, normal rhythm, normal heart sounds, other (Normal radial pulses bilaterally) GI/Abdominal exam: Present: soft. Absent: distended, tenderness, guarding Extremities exam: Present: other (Negative Homans sign bilaterally). Absent: tenderness, pedal edema, calf tenderness Neurological exam: Present: alert, oriented X3. Absent: motor sensory deficit Psychiatric exam: Present: normal affect, normal mood Skin exam: Present: warm, dry, intact, normal color Course Vital Signs 04/09/22 04/09/22 04/09/22 17:27 19:01 19:46 Temperature 98.3 F Pulse Rate 100 84 75 Respiratory 20 18 18 Rate Blood Pressure 136/73 96/68 99/64 O2 Sat by Pulse 99 99 98 Oximetry - Reevaluation(s) Reevaluation #1: 04/09/22 19:41 Patient denies development of any new symptoms while in the ED. Patient remains alert and breathing comfortably with a normal room air oxygen saturation. Nain ent and father are aware the patient's test results, and patient agrees with hospital admission at this time. 04/09/22 19:47 Case, H&P, test results and ED management thus far were discussed with Dr. Ramos. He accepts hospital admission. He has no further recommendations at this time. EKG Findings - EKG Comments: EKG Findings:: Normal sinus rhythm, ventricular rate of 88 bpm, no ectopy, normal [place] and QRS intervals, normal QT interval, no ST or T-wave abnormality, normal axis Medical Decision Making - Medical Decision Making Patient reports throwing up several times last week, and I suspect that his laboratory findings (hyponatremia, hypokalemia, renal insufficiency and elevated hemoglobin level) are likely due to dehydration. Patient's troponin is negative, and I do not think that his chest pain is likely cardiac in etiology. Patient has been treated with IV fluids and oral potassium repletion in the ED. Will admit the patient to the hospital for continued hydration and electrolyte correction. Dr. Ramos has accepted hospital admission. - Lab Data Result diagrams: 04/09/22 17:51 04/09/22 17:51 Lab Results 04/09/22 04/09/22 04/09/22 Range/Units 17:51 17:51 17:51 WBC 13.2 H (3.8-10.6) k/uL RBC 5.45 (4.30-5.90) m/uL Hgb 19.6 H* (13.0-17.5) gm/dL Hct 52.9 (39.0-53.0) % MCV 97.0 (80.0-100.0) fL MCH 36.0 H (25.0-35.0) pg MCHC 37.1 H (31.0-37.0) g/dL RDW 11.4 L (11.5-15.5) % Plt Count 327 (150-450) k/uL MPV 8.7 Neutrophils % 74 % Lymphocytes % 10 % Monocytes % 11 % Eosinophils % 2 % Basophils % 1 % Neutrophils # 9.7 H (1.3-7.7) k/uL Lymphocytes # 1.3 (1.0-4.8) k/uL Monocytes # 1.5 H (0-1.0) k/uL Eosinophils # 0.2 (0-0.7) k/uL Basophils # 0.1 (0-0.2) k/uL PT 11.2 (9.0-12.0) sec INR 1.0 (<1.2) APTT 24.2 (22.0-30.0) sec Sodium 126 L (137-145) mmol/L Potassium 3.0 L (3.5-5.1) mmol/L Chloride 79 L (98-107) mmol/L Carbon Dioxide 31 H (22-30) mmol/L Anion Gap 16 mmol/L BUN 57 H (9-20) mg/dL Creatinine 1.98 H (0.66-1.25) mg/dL Est GFR (CKD-EPI)AfAm 46 (>60 ml/min/1.73 sqM) Est GFR (CKD-EPI)NonAf 40 (>60 ml/min/1.73 sqM) Glucose 138 H (74-99) mg/dL Calcium 11.2 H (8.4-10.2) mg/dL Magnesium 2.1 (1.6-2.3) mg/dL Total Bilirubin 1.3 (0.2-1.3) mg/dL AST 31 (17-59) U/L ALT 31 (4-49) U/L Alkaline Phosphatase 36 L (38-126) U/L Troponin I (0.000-0.034) ng/mL Total Protein 7.2 (6.3-8.2) g/dL Albumin 4.5 (3.5-5.0) g/dL Lipase 450 H (23-300) U/L Valproic Acid <10.0 ug/mL 04/09/22 Range/Units 17:51 WBC (3.8-10.6) k/uL RBC (4.30-5.90) m/uL Hgb (13.0-17.5) gm/dL Hct (39.0-53.0) % MCV (80.0-100.0) fL MCH (25.0-35.0) pg MCHC (31.0-37.0) g/dL RDW (11.5-15.5) % Plt Count (150-450) k/uL MPV Neutrophils % % Lymphocytes % % Monocytes % % Eosinophils % % Basophils % % Neutrophils # (1.3-7.7) k/uL Lymphocytes # (1.0-4.8) k/uL Monocytes # (0-1.0) k/uL Eosinophils # (0-0.7) k/uL Basophils # (0-0.2) k/uL PT (9.0-12.0) sec INR (<1.2) APTT (22.0-30.0) sec Sodium (137-145) mmol/L Potassium (3.5-5.1) mmol/L Chloride (98-107) mmol/L Carbon Dioxide (22-30) mmol/L Anion Gap mmol/L BUN (9-20) mg/dL Creatinine (0.66-1.25) mg/dL Est GFR (CKD-EPI)AfAm (>60 ml/min/1.73 sqM) Est GFR (CKD-EPI)NonAf (>60 ml/min/1.73 sqM) Glucose (74-99) mg/dL Calcium (8.4-10.2) mg/dL Magnesium (1.6-2.3) mg/dL Total Bilirubin (0.2-1.3) mg/dL AST (17-59) U/L ALT (4-49) U/L Alkaline Phosphatase (38-126) U/L Troponin I <0.012 (0.000-0.034) ng/mL Total Protein (6.3-8.2) g/dL Albumin (3.5-5.0) g/dL Lipase (23-300) U/L Valproic Acid ug/mL - Radiology Data Chest x-ray: Normal chest. No change. Disposition Clinical Impression: Chest pain, Hypokalemia, Hyponatremia, Renal insufficiency, Dehydration Disposition: ADMITTED IP TO THIS HOSP Condition: Stable Is patient prescribed a controlled substance at d/c from ED?: No Referrals: Vel Polo MD [Primary Care Provider] - 1-2 days Time of Disposition: 19:48
[2022-04-09] MEDS ORDERED: MAG HYDROX/AL HYDROX/SIMETH 30 ML, HYOSCYAMINE ELIXIR 10 ML, LIDOCAINE VISCOUS 2% 10 ML PO STA ×3 (17:44)
[2022-04-09 18:05] LABS: Basophils # (A) 0.1 k/uL (0-0.2); Basophils % (A) 1 %; Eosinophils # (A) 0.2 k/uL (0-0.7); Eosinophils % (A) 2 %; HCT 52.9 % (39.0-53.0); Lymphocytes # (A) 1.3 k/uL (1.0-4.8); Lymphocytes % (A) 10 %; MCHC 37.1 g/dL (31.0-37.0); Mean Platelet Volume 8.7; Monocytes # (A) 1.5 k/uL (0-1.0); Monocytes % (A) 11 %; Neutrophils # (A) 9.7 k/uL (1.3-7.7); Neutrophils % (A) 74 %; Platelet Count 327 k/uL (150-450); RBC 5.45 m/uL (4.30-5.90); RDW 11.4 % (11.5-15.5); WBC 13.2 k/uL (3.8-10.6)
[2022-04-09 18:10] LABS: HGB 19.6 gm/dL (13.0-17.5)
[2022-04-09] MEDS ORDERED: SODIUM CHLORIDE 0.9% 1,000 ML IV ONE (18:12)
[2022-04-09 18:14] LABS: Partial Thromboplastin Time 24.2 sec (22.0-30.0); Prothrombin Time 11.2 sec (9.0-12.0)
[2022-04-09 18:22] LABS: ALT 31 U/L (4-49); AST 31 U/L (17-59); African American GFR (CKD) 46 (>60 ml/min/1.73 sqM); Albumin 4.5 g/dL (3.5-5.0); Alkaline Phosphatase 36 U/L (38-126); Anion Gap 16 mmol/L; Blood Urea Nitrogen 57 mg/dL (9-20); Calcium 11.2 mg/dL (8.4-10.2); Carbon Dioxide 31 mmol/L (22-30); Chloride 79 mmol/L (98-107); Glucose 138 mg/dL (74-99); Lipase 450 U/L (23-300); Magnesium 2.1 mg/dL (1.6-2.3); Non-African American GFR(CKD) 40 (>60 ml/min/1.73 sqM); Sodium 126 mmol/L (137-145); Total Bilirubin 1.3 mg/dL (0.2-1.3); Total Protein 7.2 g/dL (6.3-8.2)
--- NOTE | 2022-04-09 18:28 | XR ---
EXAMINATION TYPE: XR chest 2V DATE OF EXAM: 04/09/2022 COMPARISON: 11/20/2016 HISTORY: Chest pain TECHNIQUE: FINDINGS: Heart and mediastinum are normal. Lungs are clear. Diaphragm is normal. Bony thorax appears normal. IMPRESSION: Normal chest. No change.
[2022-04-09 18:53] LABS: Valproic Acid (Depakene) <10.0 ug/mL
[2022-04-09] MEDS ORDERED: POTASSIUM CHLORIDE ER 20 MEQ TAB.ER PO STA (19:32)
[2022-04-09] MEDS: SODIUM CHLORIDE 0.9% 1,000 ML IV SCH (21:43)
[2022-04-09] MEDS ORDERED: ONDANSETRON 4 MG/2 ML VIAL IVP PRN (23:54)
--- NOTE | 2022-04-09 23:56 | P.HPIM ---
History of Present Illness H&P Date: 04/09/22 The patient is a 42-year-old male with a PMH of hypertension, asthma, seizure disorder who presents to the emergency room with complaints of odynophagia. The patient reports that his symptoms started roughly 7 days ago with intractable nausea and vomiting, up to 10 times daily with an inability to tolerate most foods. He then developed odynophagia with burning like sensation substernal upon attempting to eat or drink anything. He denies any discomfort at rest.Denied fever, chills, lower extremity swelling, or lower extremity pain. Denied history of peptic ulcer disease or gastritis. Does state that he uses [id number] Mobic unknown dose every day for the past year and a half due to his hip replacement surgery on a half year ago. Reports drinking casual amounts of alcohol once weekly. Denied blood in stools or black tarry stools. Denied bloody or tarry black emesis. Denied shortness of breath, diaphoresis, or dizziness. Chest x-ray in the emergency room was unremarkable. EKG revealed sinus rhythm at 88 bpm with Q waves in the 3 and somewhat poor R-wave progre ssion. Laboratory evaluation was remarkable for hemoglobin 19.6, WBC count 13.2, sodium 126, potassium 3.0, chloride 79, CO2 31, BUN 57, creatinine 1.98 (previously 0.7 on 09/2020), troponin less than 0.012, lipase 450. Review of systems: Pertinent positives and negatives as discussed in HPI, a complete review of systems was performed and all other systems are negative. Physical examination: General: non toxic, no distress, appears at stated age, normal weight Derm: no unusual rashes/lesions, warm Head: atraumatic, normocephalic, symmetric Eyes: EOMI, no lid lag, anicteric sclera, pupils equal round reactive to light ENT: Nose and ears atraumatic Neck: No cervical lymphadenopathy, trachea midline, supple Mouth: no lip lesion, mucus membranes moist Cardiovascular: S1S2 reg, no murmur, positive dorsalis pedis pulse bilateral, no edema Lungs: CTA bilateral, no rhonchi, no rales, no accessory muscle use Abdominal: soft, nontender to palpation, no guarding Ext: muscle strength 5 out of 5 in all 4 extremities grossly, no gross muscle atrophy, no contractures, Neuro: CN II-XI grossly intact, no gross focal neuro deficits Psych: Alert, oriented, appropriate affect Assessment/plan Intractable nausea and vomiting with odynophagia -Surgery consult for possible EGD (GI service not available at this time) -Zofran when necessary -Advised patient on avoidance of any further NSAIDs -PPI Hypochloremic hyponatremia, likely due to poor oral intake -Continue with IV fluids Acute kidney injury, likely prerenal due to above and dehydration -Continue IV fluids and monitor BMP Metabolic alkalosis, likely due to persistent vomiting -Continue with above management Thrombocytosis -Likely secondary to hemoconcentration -Continue IV fluids Hypokalemia -Replace and monitor DVT prophylaxis -IPCDs The patient is admitted with an anticipated greater than 2 midnight stay for evaluation of chest pain CODE STATUS: Full Code Discussed with: Patient Anticipated discharge date: 2-[address]: Home Past Medical History Past Medical History: Asthma, Hypertension, Osteoarthritis (OA), Seizure Disorder, Sleep Apnea/CPAP/BIPAP Additional Past Medical History / Comment(s): Sleeping problems (no cpap), arthritis R hand, last seizure in december 2016, low magnesium frequently History of Any Multi-Drug Resistant Organisms: None Reported Past Surgical History: Cholecystectomy, Joint Replacement Additional Past Surgical History / Comment(s): R hand fracture repair, hip replacement Past Anesthesia/Blood Transfusion Reactions: No Reported Reaction Additional Past Anesthesia/Blood Transfusion Reaction / Comment(s): woke up during hand surgery (pt was 18 years old at time of surgery). no hx blood transfusion Past Psychological History: Anxiety, Depression Additional Psychological History / Comment(s): Patient lives with his dad. He does not drive, he gets to appts by his father or sister driving him. He is ind ependent. 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 Recently stopped smoking. denies current etoh use. Denies injection drug use or recreational drug use. No experience Smoking Status: Current some day smoker Past Alcohol Use History: Occasional Additional Past Alcohol Use History / Comment(s): Pt. states he stopped smoking cold turkey about 4 days ago. Past Drug Use History: None Reported - Past Family History Father Family Medical History: Cancer Additional Family Medical History / Comment(s): Prostate cancer. Mother History Unknown: Yes Family Medical History: No Reported History Additional Family Medical History / Comment(s): Pt states he does not have much contact with his mother. Medications and Allergies Home Medications Medication Instructions Recorded Confirmed Type traZODone HCL [Desyrel] 100 mg PO HS PRN 01/30/17 04/09/22 History Escitalopram [Lexapro] 20 mg PO DAILY 10/01/20 04/09/22 History Losartan Potassium 50 mg PO DAILY 10/01/20 04/09/22 History Cetirizine HCl [Zyrtec] 10 mg PO DAILY 04/09/22 04/09/22 History Divalproex ER [Depakote ER] 500 mg PO TID 04/09/22 04/09/22 History Propranolol [Inderal] 10 mg PO TID 04/09/22 04/09/22 History Allergies Allergy/AdvReac Type Severity Reaction Status Date / Time lisinopril Allergy Swelling Verified 04/09/22 19:49 hot sauce Allergy Swelling Uncoded 04/09/22 17:29 Physical Exam Vitals: Vital Signs Temp Pulse Pulse Resp BP BP Pulse Ox 04/09/22 21:05 98.6 F 84 15 92/56 95 04/09/22 19:46 75 18 99/64 98 04/09/22 19:01 84 18 96/68 99 04/09/22 17:27 98.3 F 100 20 136/73 99 Intake and Output 04/09/22 04/09/22 04/10/22 14:59 22:59 06:59 Other: Weight 76.657 kg Results CBC & Chem 7: 04/09/22 17:51 04/09/22 17:51 Labs: Abnormal Lab Results - Last 24 Hours (Table) 04/09/22 04/09/22 Range/Units 17:51 17:51 WBC 13.2 H (3.8-10.6) k/uL Hgb 19.6 H* (13.0-17.5) gm/dL MCH 36.0 H (25.0-35.0) pg MCHC 37.1 H (31.0-37.0) g/dL RDW 11.4 L (11.5-15.5) % Neutrophils # 9.7 H (1.3-7.7) k/uL Monocytes # 1.5 H (0-1.0) k/uL Sodium 126 L (137-145) mmol/L Potassium 3.0 L (3.5-5.1) mmol/L Chloride 79 L (98-107) mmol/L Carbon Dioxide 31 H (22-30) mmol/L BUN 57 H (9-20) mg/dL Creatinine 1.98 H (0.66-1.25) mg/dL Glucose 138 H (74-99) mg/dL Calcium 11.2 H (8.4-10.2) mg/dL Alkaline Phosphatase 36 L (38-126) U/L Lipase 450 H (23-300) U/L Thrombosis Risk Factor Assmnt - Choose All That Apply Any of the Below Risk Factors Present?: Yes Each Factor Represents 1 point: Age 41-60 years Other Risk Factors: No Other congenital or acquired thrombophilia - If yes, enter type in comment: No Thrombosis Risk Factor Assessment Total Risk Factor Score: 1 Thrombosis Risk Factor Assessment Level: Low Risk
[2022-04-10] MEDS: DIVALPROEX ER 500 MG TAB.ER.24H PO SCH ×4 (00:16→20:44)
[2022-04-10] MEDS: traZODone HCL 100 MG TAB PO PRN ×2 (00:16→20:50)
[2022-04-10] MEDS: SODIUM CHLORIDE 0.9% 1,000 ML IV SCH ×3 (05:15→20:45)
[2022-04-10] MEDS: PANTOPRAZOLE 40 MG/10 ML VIAL IVP SCH ×2 (05:26→16:01)
[2022-04-10] MEDS: ESCITALOPRAM 20 MG TAB PO SCH (09:02)
[2022-04-10] MEDS: PROPRANOLOL 10 MG TAB PO SCH ×3 (09:07→20:45)
[2022-04-10 09:09] LABS: Basophils % (A) 1 %; Eosinophils # (A) 0.1 k/uL (0-0.7); Eosinophils % (A) 1 %; HCT 46.7 % (39.0-53.0); HGB 16.7 gm/dL (13.0-17.5); Lymphocytes # (A) 1.1 k/uL (1.0-4.8); Lymphocytes % (A) 17 %; MCH 35.9 pg (25.0-35.0); MCHC 35.8 g/dL (31.0-37.0); MCV 100.4 fL (80.0-100.0); Monocytes % (A) 15 %; Neutrophils # (A) 4.2 k/uL (1.3-7.7); Neutrophils % (A) 63 %; Platelet Count 234 k/uL (150-450); RBC 4.65 m/uL (4.30-5.90); WBC 6.6 k/uL (3.8-10.6)
[2022-04-10 09:19] LABS: Albumin 3.5 g/dL (3.5-5.0); Calcium 9.2 mg/dL (8.4-10.2); Potassium 4.3 mmol/L (3.5-5.1); Total Bilirubin 0.9 mg/dL (0.2-1.3); Total Protein 5.9 g/dL (6.3-8.2)
[2022-04-10] MEDS: LOSARTAN 50 MG TAB PO SCH (09:35)
--- NOTE | 2022-04-10 13:43 | P.PN ---
Subjective Progress Note Date: 04/10/22 Patient is doing well today, however, still complaining of chest pain, substernal, pressure-like. Nausea has improved. Still having some difficulty swallowing. Gen: awake, alert HEENT: normocephalic, atraumatic, good hearing acuity, moist mucous membranes Resp: good air exchange, breathing comfortably with no accessory muscle use CVS: good distal perfusion x 4, GI: soft, NTTP, ND : no SPT, no CVAT, sampson catheter not present MSK: no pitting edema, no clubbing Neuro: non-focal, moving all extremities Psych: cooperative, euthymic mood Assessment/plan: Chest pain -Admit inpatient, telemetry -Cardiac consult -Troponins are negative -EKG appears nonischemic -Nitro when necessary for chest pain -Aspirin, statin -Echo, pending -TSH, A1c, lipid panel Intractable nausea and vomiting with odynophagia -Surgery consult for possible EGD (GI service not available at this time) -Zofran when necessary -Advised patient on avoidance of any further NSAIDs -PPI Hypochloremic hyponatremia, likely due to poor oral intake -Continue with IV fluids Acute kidney injury, likely prerenal due to above and dehydration -Continue IV fluids and monitor BMP Metabolic alkalosis, likely due to persistent vomiting -Continue with above management Thrombocytosis -Likely secondary to hemoconcentration -Continue IV fluids Hypokalemia -Replace and monitor DVT prophylaxis -IPCDs The patient is admitted with an anticipated greater than 2 midnight stay for evaluation of chest pain CODE STATUS: Full Code Discussed with: Patient Anticipated discharge date: 2-[address]: Home Objective - Vital Signs Vital signs: Vital Signs Temp 98.3 F 04/10/22 11:46 Pulse 71 04/10/22 11:46 Resp 18 04/10/22 11:46 BP 96/55 04/10/22 11:46 Pulse Ox 96 04/10/22 11:46 FiO2 Intake & Output 04/09/22 04/10/22 04/10/22 18:59 06:59 18:59 Intake Total 840 Balance 840 Weight 76.657 kg 76.657 kg Intake: Intake, IV Titration 840 Amount Sodium Chloride 0.9% 1, 840 000 ml @ 120 mls/hr IV . Q8H20M [facility] Rx#:[id number] Other: Voiding Method Toilet # Voids 2 1 - Labs CBC & Chem 7: 04/10/22 08:16 04/10/22 08:16 Labs: Abnormal Lab Results - Last 24 Hours (Table) 04/09/22 04/09/22 04/10/22 Range/Units 17:51 17:51 08:16 WBC 13.2 H (3.8-10.6) k/uL Hgb 19.6 H* (13.0-17.5) gm/dL MCV 100.4 H (80.0-100.0) fL MCH 36.0 H 35.9 H (25.0-35.0) pg MCHC 37.1 H (31.0-37.0) g/dL RDW 11.4 L 11.0 L (11.5-15.5) % Neutrophils # 9.7 H (1.3-7.7) k/uL Monocytes # 1.5 H (0-1.0) k/uL Sodium 126 L (137-145) mmol/L Potassium 3.0 L (3.5-5.1) mmol/L Chloride 79 L (98-107) mmol/L Carbon Dioxide 31 H (22-30) mmol/L BUN 57 H (9-20) mg/dL Creatinine 1.98 H (0.66-1.25) mg/dL Glucose 138 H (74-99) mg/dL Calcium 11.2 H (8.4-10.2) mg/dL Alkaline Phosphatase 36 L (38-126) U/L Total Protein (6.3-8.2) g/dL Lipase 450 H (23-300) U/L 04/10/22 Range/Units 08:16 WBC (3.8-10.6) k/uL Hgb (13.0-17.5) gm/dL MCV (80.0-100.0) fL MCH (25.0-35.0) pg MCHC (31.0-37.0) g/dL RDW (11.5-15.5) % Neutrophils # (1.3-7.7) k/uL Monocytes # (0-1.0) k/uL Sodium 133 L (137-145) mmol/L Potassium (3.5-5.1) mmol/L Chloride 88 L (98-107) mmol/L Carbon Dioxide 36 H (22-30) mmol/L BUN 46 H (9-20) mg/dL Creatinine 1.56 H (0.66-1.25) mg/dL Glucose (74-99) mg/dL Calcium (8.4-10.2) mg/dL Alkaline Phosphatase 24 L (38-126) U/L Total Protein 5.9 L (6.3-8.2) g/dL Lipase (23-300) U/L
--- NOTE | 2022-04-10 14:16 | P.GSCN ---
History of Present Illness Consult date: 04/10/22 Reason for Consult: Chest pain, nausea and vomiting History of present illness: The patient is a 42-year-old man who's had issues with nausea and vomiting for several days. He complains of a raw throat and chest pain. No one else is been ill. He had no fevers or chills. Hadn't thrown up any blood. No blood in the stool or dark tarry stool. Typically doesn't have any heartburn or fatty food dyscrasias. He doesn't take [id number] antacids or acid blockers on a regular basis. The patient is feeling much better today and would like to eat Review of Systems All systems: negative Past Medical History Past Medical History: Asthma, Hypertension, Osteoarthritis (OA), Seizure Disorder, Sleep Apnea/CPAP/BIPAP Additional Past Medical History / Comment(s): Sleeping problems (no cpap), arthritis R hand, last seizure in december 2016, low magnesium frequently History of Any Multi-Drug Resistant Organisms: None Reported Past Surgical History: Cholecystectomy, Joint Replacement Additional Past Surgical History / Comment(s): R hand fracture repair, hip re placement Past Anesthesia/Blood Transfusion Reactions: No Reported Reaction Additional Past Anesthesia/Blood Transfusion Reaction / Comm: woke up during hand surgery (pt was 18 years old at time of surgery). no hx blood transfusion Past Psychological History: Anxiety, Depression Additional Psychological History / Comment(s): Patient lives with his dad. He does not drive, he gets to appts by his father or sister driving him. He is independent. 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 Recently stopped smoking. denies current etoh use. Denies injection drug use or recreational drug use. No experience Smoking Status: Current some day smoker Past Alcohol Use History: Occasional Additional Past Alcohol Use History / Comment(s): Pt. states he stopped smoking cold turkey about 4 days ago. Past Drug Use History: None Reported - Past Family History Father Family Medical History: Cancer Additional Family Medical History / Comment(s): Prostate cancer. Mother History Unknown: Yes Family Medical History: No Reported History Additional Family Medical History / Comment(s): Pt states he does not have much contact with his mother. Medications and Allergies Home Medications Medication Instructions Recorded Confirmed Type traZODone HCL [Desyrel] 100 mg PO HS PRN 01/30/17 04/09/22 History Escitalopram [Lexapro] 20 mg PO DAILY 10/01/20 04/09/22 History Losartan Potassium 50 mg PO DAILY 10/01/20 04/09/22 History Cetirizine HCl [Zyrtec] 10 mg PO DAILY 04/09/22 04/09/22 History Divalproex ER [Depakote ER] 500 mg PO TID 04/09/22 04/09/22 History Propranolol [Inderal] 10 mg PO TID 04/09/22 04/09/22 History Allergies Allergy/AdvReac Type Severity Reaction Status Date / Time lisinopril Allergy Swelling Verified 04/09/22 19:49 hot sauce Allergy Swelling Uncoded 04/09/22 17:29 Surgical - Exam Osteopathic Statement: *. No significant issues noted on an osteopathic structural exam other than those noted in the History and Physical/Consult. Vital Signs Temp Pulse Resp BP Pulse Ox 98.3 F 100 20 136/73 99 04/09/22 17:27 04/09/22 17:27 04/09/22 17:27 04/09/22 17:27 04/09/22 17:27 - General well developed, well nourished, no distress - Neck trachea midline, no lymphadectomy - Respiratory normal expansion, clear to auscultation - Cardiovascular Rhythm: regular - Abdomen Abdomen: soft, non tender, bowel sounds, no guarding, no rigid, no rebound, no distended Results - Labs 04/10/22 08:16 04/10/22 08:16 Abnormal Lab Results - Last 24 Hours (Table) 04/09/22 04/09/22 04/10/22 Range/Units 17:51 17:51 08:16 WBC 13.2 H (3.8-10.6) k/uL Hgb 19.6 H* (13.0-17.5) gm/dL MCV 100.4 H (80.0-100.0) fL MCH 36.0 H 35.9 H (25.0-35.0) pg MCHC 37.1 H (31.0-37.0) g/dL RDW 11.4 L 11.0 L (11.5-15.5) % Neutrophils # 9.7 H (1.3-7.7) k/uL Monocytes # 1.5 H (0-1.0) k/uL Sodium 126 L (137-145) mmol/L Potassium 3.0 L (3.5-5.1) mmol/L Chloride 79 L (98-107) mmol/L Carbon Dioxide 31 H (22-30) mmol/L BUN 57 H (9-20) mg/dL Creatinine 1.98 H (0.66-1.25) mg/dL Glucose 138 H (74-99) mg/dL Calcium 11.2 H (8.4-10.2) mg/dL Alkaline Phosphatase 36 L (38-126) U/L Total Protein (6.3-8.2) g/dL Lipase 450 H (23-300) U/L 04/10/22 Range/Units 08:16 WBC (3.8-10.6) k/uL Hgb (13.0-17.5) gm/dL MCV (80.0-100.0) fL MCH (25.0-35.0) pg MCHC (31.0-37.0) g/dL RDW (11.5-15.5) % Neutrophils # (1.3-7.7) k/uL Monocytes # (0-1.0) k/uL Sodium 133 L (137-145) mmol/L Potassium (3.5-5.1) mmol/L Chloride 88 L (98-107) mmol/L Carbon Dioxide 36 H (22-30) mmol/L BUN 46 H (9-20) mg/dL Creatinine 1.56 H (0.66-1.25) mg/dL Glucose (74-99) mg/dL Calcium (8.4-10.2) mg/dL Alkaline Phosphatase 24 L (38-126) U/L Total Protein 5.9 L (6.3-8.2) g/dL Lipase (23-300) U/L Diabetes panel 04/09/22 04/10/22 Range/Units 17:51 08:16 Sodium 126 L 133 L (137-145) mmol/L Potassium 3.0 L 4.3 (3.5-5.1) mmol/L Chloride 79 L 88 L (98-107) mmol/L Carbon Dioxide 31 H 36 H (22-30) mmol/L BUN 57 H 46 H (9-20) mg/dL Creatinine 1.98 H 1.56 H (0.66-1.25) mg/dL Glucose 138 H 96 (74-99) mg/dL Calcium 11.2 H 9.2 (8.4-10.2) mg/dL AST 31 25 (17-59) U/L ALT 31 26 (4-49) U/L Alkaline Phosphatase 36 L 24 L (38-126) U/L Total Protein 7.2 5.9 L (6.3-8.2) g/dL Albumin 4.5 3.5 (3.5-5.0) g/dL Calcium panel 04/09/22 04/10/22 Range/Units 17:51 08:16 Calcium 11.2 H 9.2 (8.4-10.2) mg/dL Albumin 4.5 3.5 (3.5-5.0) g/dL Pituitary panel 04/09/22 04/10/22 Range/Units 17:51 08:16 Sodium 126 L 133 L (137-145) mmol/L Potassium 3.0 L 4.3 (3.5-5.1) mmol/L Chloride 79 L 88 L (98-107) mmol/L Carbon Dioxide 31 H 36 H (22-30) mmol/L BUN 57 H 46 H (9-20) mg/dL Creatinine 1.98 H 1.56 H (0.66-1.25) mg/dL Glucose 138 H 96 (74-99) mg/dL Calcium 11.2 H 9.2 (8.4-10.2) mg/dL Adrenal panel 04/09/22 04/10/22 Range/Units 17:51 08:16 Sodium 126 L 133 L (137-145) mmol/L Potassium 3.0 L 4.3 (3.5-5.1) mmol/L Chloride 79 L 88 L (98-107) mmol/L Carbon Dioxide 31 H 36 H (22-30) mmol/L BUN 57 H 46 H (9-20) mg/dL Creatinine 1.98 H 1.56 H (0.66-1.25) mg/dL Glucose 138 H 96 (74-99) mg/dL Calcium 11.2 H 9.2 (8.4-10.2) mg/dL Total Bilirubin 1.3 0.9 (0.2-1.3) mg/dL AST 31 25 (17-59) U/L ALT 31 26 (4-49) U/L Alkaline Phosphatase 36 L 24 L (38-126) U/L Total Protein 7.2 5.9 L (6.3-8.2) g/dL Albumin 4.5 3.5 (3.5-5.0) g/dL Assessment and Plan (1) Nausea and vomiting Current Visit: Yes Status: Acute Code(s): R11.2 - NAUSEA WITH VOMITING, UNSPECIFIED SNOMED Code(s): 96539643 (2) Chest pain Current Visit: Yes Status: Acute Code(s): R07.9 - CHEST PAIN, UNSPECIFIED SNOMED Code(s): 33856735 (3) Dehydration Current Visit: Yes Status: Acute Code(s): E86.0 - DEHYDRATION SNOMED Code(s): 50756154 (4) Renal insufficiency Current Visit: Yes Status: Acute Code(s): N28.9 - DISORDER OF KIDNEY AND URETER, UNSPECIFIED SNOMED Code(s): 494754788 Plan: Patient has no pre-existing GI complaints or acid reflux. He is feeling better today. No sign of GI bleeding. Patient will be started on a Carafate slurry for presumed esophagitis from the vomiting. He wants to eat so diet will be restarted. If he develops any recurrent symptoms after the diet is initiated, I will do a EGD on him tomorrow. If he is able to tolerated, he could be discharged home on Carafate for 2 weeks and a PPI for 1 month. Questions were encouraged and answered
[2022-04-10] MEDS: ASPIRIN 81 MG PO SCH (16:01)
[2022-04-10] MEDS: SUCRALFATE 1 GM TAB PO SCH ×2 (16:05→20:44)
--- NOTE | 2022-04-10 18:57 | P.PN ---
Progress Note - Text Progress Note Date: 04/10/22 The patient was given dinner. He didn't have any nausea or vomiting but was developing epigastric pain. Therefore we'll be made nothing by mouth and an EGD will be done tomorrow
[2022-04-10] MEDS: ATORVASTATIN 40 MG TAB PO SCH (20:45)
[2022-04-11] MEDS: SODIUM CHLORIDE 0.9% 1,000 ML IV SCH ×2 (06:39→21:18)
[2022-04-11] MEDS: SUCRALFATE 1 GM TAB PO SCH ×4 (06:40→21:19)
[2022-04-11 08:30] LABS: Basophils % (A) 1 %; Eosinophils # (A) 0.1 k/uL (0-0.7); Eosinophils % (A) 2 %; HGB 14.5 gm/dL (13.0-17.5); Lymphocytes # (A) 1.1 k/uL (1.0-4.8); Lymphocytes % (A) 24 %; MCH 36.6 pg (25.0-35.0); MCHC 36.3 g/dL (31.0-37.0); MCV 100.9 fL (80.0-100.0); Mean Platelet Volume 8.1; Monocytes # (A) 0.7 k/uL (0-1.0); Monocytes % (A) 14 %; Neutrophils # (A) 2.7 k/uL (1.3-7.7); Neutrophils % (A) 57 %; Platelet Count 227 k/uL (150-450); RBC 3.96 m/uL (4.30-5.90); RDW 10.9 % (11.5-15.5); WBC 4.8 k/uL (3.8-10.6)
[2022-04-11 08:33] LABS: African American GFR (CKD) >90 (>60 ml/min/1.73 sqM); Anion Gap 9 mmol/L; Blood Urea Nitrogen 21 mg/dL (9-20); Calcium 8.1 mg/dL (8.4-10.2); Carbon Dioxide 28 mmol/L (22-30); Chloride 99 mmol/L (98-107); Glucose 91 mg/dL (74-99); Magnesium 1.6 mg/dL (1.6-2.3); Non-African American GFR(CKD) >90 (>60 ml/min/1.73 sqM); Potassium 3.4 mmol/L (3.5-5.1); Sodium 136 mmol/L (137-145)
[2022-04-11] MEDS: ASPIRIN 81 MG PO SCH (08:53)
[2022-04-11] MEDS: DIVALPROEX ER 500 MG TAB.ER.24H PO SCH ×3 (08:53→21:19)
[2022-04-11] MEDS: PANTOPRAZOLE 40 MG/10 ML VIAL IVP SCH (08:53)
[2022-04-11] MEDS: ESCITALOPRAM 20 MG TAB PO SCH (08:53)
[2022-04-11] MEDS: PROPRANOLOL 10 MG TAB PO SCH ×3 (08:54→22:33)
[2022-04-11] MEDS: LOSARTAN 50 MG TAB PO SCH (08:54)
--- NOTE | 2022-04-11 10:38 | P.CRDCN ---
History of Present Illness History of present illness: HISTORY OF PRESENTING ILLNESS This is a pleasant 42-year-old male past medical history significant for hypertension, asthma, seizure disorder, chronic nicotine dependence. 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 We have been asked to see in consultation for chest pain. Patient presents emergency department with nausea and vomiting for 3 days. He states after he had nausea and vomiting he began to have mid sternal and upper chest pressure. It was nonradiating, nonexertional. His symptoms began after the nausea and vomiting. He also notices that his chest discomfort is aggravated by swallowing foods. No specific alleviating factors. He does not have chest discomfort at rest, mostly with swallowing and with vomiting. He denies any history of cardiac disease. He denies a history of CAD, MT, stroke, diabetes. Family history includes his maternal grandparents both had MIs uknown age. He is currently having difficulty eating and drinking because of the chest discomfort when he swallows, currently able to tolerate clear liquids. He is an occasional cigarette smoker. Occasional alcohol use. Denies any illicit drug use. Surgery is consulted for possible procedure. DIAGNOSTICS * EKG reveals sinus rhythm, heart rate 88, nonspecific STT wave abnormalities. * Chest xray no acute current pulmonary process * Laboratory reviewed, troponin negative 3, WBC 4.8, hemoglobin 14.5, platelet 227, sodium 136, potassium 2.4, BUN 21, serum creatinine 0.8, magnesium 1.6 * Current home cardiac medications include losartan 50 mg daily, propanolol 10 mg 3 times a day REVIEW OF SYSTEMS At the time of my exam: CONSTITUTIONAL: Denies fever or chills. CARDIOVASCULAR: Patient with chest discomfort shortness of breath, orthopnea, PND or palpitations. RESPIRATORY: Denies cough. GASTROINTESTINAL: Denies abdominal pain, diarrhea, constipation, nausea or vomiting. MUSCULOSKELETAL: Denies myalgias. NEUROLOGIC: Denies numbness, tingling, headacbe or weakness. ENDOCRINE: Denies fatigue, weight change, polydipsia or polyurina. GENITOURINARY: Denies burning, hematuria or urgency with micturation. HEMATOLOGIC: Denies history of anemia or bleeding. PHYSICAL EXAMINATION Blood pressure 117/69, heart 70, afebrile, saturation 97% on room air CONSTITUTIONAL: No apparent distress. HEENT: Head is normocephalic. Pupils are equal, round. Sclerae anicteric. Mucous membranes of the mouth are moist. No JVD. No carotid bruit. CHEST EXAMINATION: Lungs are clear to auscultation. No chest wall tenderness is noted on palpation or with deep breathing. HEART EXAMINATION: Regular rate and rhythm. S1, S2 heard. No murmurs, gallops or rub. ABDOMEN: Soft, nontender. Positive bowel sounds. EXTREMITIES: 2+ peripheral pulses, no lower extremity edema and no calf tenderness. NEUROLOGIC EXAMINATION: Patient is awake, alert and oriented x3. ASSESSMENT Chest pain, after nausea and vomiting, also occurs with swallowing of foods. Likely non-cardiac, acute coronary syndrome has ruled out Odynophagia Nausea and vomiting Asthma History of seizures Chronic tobacco use PLAN Acute coronary syndrome has ruled out Rest of workup per primary and surgery If no known cause of patient's chest discomfort after nausea/vomiting/odynophagia workup will consider stress test Obtain 2D echocardiogram and doppler study to assess cardiac structure and function. Further recommendations based on clinical course Nurse practitioner note has been reviewed by physician. Signing provider agrees with the documented findings, assessment, and plan of care. Past Medical History Past Medical History: Asthma, Hypertension, Osteoarthritis (OA), Seizure Disorder, Sleep Apnea/CPAP/BIPAP Additional Past Medical History / Comment(s): Sleeping problems (no cpap), arthritis R hand, last seizure in december 2016, low magnesium frequently History of Any Multi-Drug Resistant Organisms: None Reported Past Surgical History: Cholecystectomy, Joint Replacement Additional Past Surgical History / Comment(s): R hand fracture repair, hip replacement Past Anesthesia/Blood Transfusion Reactions: No Reported Reaction Additional Past Anesthesia/Blood Transfusion Reaction / Comment(s): woke up during hand surgery (pt was 18 years old at time of surgery). no hx blood transfusion Past Psychological History: Anxiety, Depression Additional Psychological History / Comment(s): Patient lives with his dad. He does not drive, he gets to appts by his father or sister driving him. He is independent. 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 Recently stopped smoking. denies current etoh use. Denies injection drug use or recreational drug use. No experience Smoking Status: Current some day smoker Past Alcohol Use History: Occasional Additional Past Alcohol Use History / Comment(s): Pt. states he stopped smoking cold turkey about 4 days ago. Past Drug Use History: None Reported - Past Family History Father Family Medical History: Cancer Additional Family Medical History / Comment(s): Prostate cancer. Mother History Unknown: Yes Family Medical History: No Reported History Additional Family Medical History / Comment(s): Pt states he does not have much contact with his mother. Medications and Allergies Home Medications Medication Instructions Recorded Confirmed Type traZODone HCL [Desyrel] 100 mg PO HS PRN 01/30/17 04/09/22 History Escitalopram [Lexapro] 20 mg PO DAILY 10/01/20 04/09/22 History Losartan Potassium 50 mg PO DAILY 10/01/20 04/09/22 History Cetirizine HCl [Zyrtec] 10 mg PO DAILY 04/09/22 04/09/22 History Divalproex ER [Depakote ER] 500 mg PO TID 04/09/22 04/09/22 History Propranolol [Inderal] 10 mg PO TID 04/09/22 04/09/22 History Allergies Allergy/AdvReac Type Severity Reaction Status Date / Time lisinopril Allergy Swelling Verified 04/09/22 19:49 hot sauce Allergy Swelling Uncoded 04/09/22 17:29 Physical Exam Vitals: Vital Signs Temp Pulse Resp BP Pulse Ox 04/11/22 04:15 97.9 F 70 16 117/69 97 04/11/22 01:13 73 18 04/11/22 00:15 97.5 F L 94 14 125/74 97 04/10/22 20:15 97.7 F 73 15 101/66 95 04/10/22 16:00 98.3 F 89 18 113/62 98 04/10/22 14:00 71 18 04/10/22 11:46 98.3 F 71 18 96/55 95 Intake and Output 04/10/22 04/11/22 04/11/22 22:59 06:59 14:59 Intake Total 360 Balance 360 Intake: Intake, IV Titration 360 Amount Sodium Chloride 0.9% 1, 360 000 ml @ 120 mls/hr IV . Q8H20M [facility] Rx#:[id number] Other: Voiding Method Toilet Toilet # Voids 1 Results 04/11/22 07:30 04/11/22 07:30 Cardiac Enzymes 04/10/22 Range/Units 08:16 AST 25 (17-59) U/L CBC 04/10/22 Range/Units 08:16 WBC 6.6 (3.8-10.6) k/uL RBC 4.65 (4.30-5.90) m/uL Hgb 16.7 (13.0-17.5) gm/dL Hct 46.7 (39.0-53.0) % Plt Count 234 (150-450) k/uL Comprehensive Metabolic Panel 04/10/22 Range/Units 08:16 Sodium 133 L (137-145) mmol/L Potassium 4.3 (3.5-5.1) mmol/L Chloride 88 L (98-107) mmol/L Carbon Dioxide 36 H (22-30) mmol/L BUN 46 H (9-20) mg/dL Creatinine 1.56 H (0.66-1.25) mg/dL Glucose 96 (74-99) mg/dL Calcium 9.2 (8.4-10.2) mg/dL AST 25 (17-59) U/L ALT 26 (4-49) U/L Alkaline Phosphatase 24 L (38-126) U/L Total Protein 5.9 L (6.3-8.2) g/dL Albumin 3.5 (3.5-5.0) g/dL Current Medications Generic Name Dose Route Start Last Admin Trade Name Freq PRN Reason Stop Dose Admin Aspirin 81 mg 04/10/22 13:45 04/10/22 16:01 Aspirin 81 Mg PO 81 mg DAILY BHARATH Administration Atorvastatin Calcium 40 mg 04/10/22 21:00 04/10/22 20:45 Atorvastatin 40 Mg Tab PO 40 mg HS BHARATH Administration Divalproex Sodium 500 mg 04/09/22 23:45 04/10/22 20:44 Divalproex Er 500 Mg Tab.Er.24h PO 500 mg TID BHARATH Administration Escitalopram Oxalate 20 mg 04/10/22 09:00 04/10/22 09:02 Escitalopram 20 Mg Tab PO 20 mg DAILY BHARATH Administration Sodium Chloride 1,000 mls @ 120 mls/hr 04/09/22 20:00 04/11/22 06:39 Saline 0.9% IV 120 mls/hr .Q8H20M BHARATH Administration Losartan Potassium 50 mg 04/10/22 09:00 04/10/22 09:35 Losartan 50 Mg Tab PO Not Given DAILY BHARATH Ondansetron HCl 4 mg 04/09/22 23:54 Ondansetron 4 Mg/2 Ml Vial IVP Q6HR PRN Nausea And Vomiting Pantoprazole Sodium 40 mg 04/10/22 04:30 04/10/22 16:01 Pantoprazole 40 Mg/10 Ml Vial IVP 40 mg DAILY BHARATH Administration Propranolol HCl 10 mg 04/10/22 09:00 04/10/22 20:45 Propranolol 10 Mg Tab PO 10 mg TID BHARATH Administration Sucralfate 1 gm 04/10/22 17:30 04/11/22 06:40 Sucralfate 1 Gm Tab PO 1 gm ACHS [facility] Administration Trazodone HCl 100 mg 04/09/22 23:55 04/10/22 20:50 Trazodone Hcl 100 Mg Tab PO 100 mg HS PRN Administration Insomnia Intake and Output 04/10/22 04/11/22 04/11/22 22:59 06:59 14:59 Intake Total 360 Balance 360 Intake: Intake, IV Titration 360 Amount Sodium Chloride 0.9% 1, 360 000 ml @ 120 mls/hr IV . Q8H20M [facility] Rx#:[id number] Other: Voiding Method Toilet Toilet # Voids 1 04/10/22 08:16 04/10/22 08:16
--- NOTE | 2022-04-11 11:31 | P.PN ---
Subjective Progress Note Date: 04/11/22 Patient is doing well today, plan is for EGD. If EGD does not identify an etiology for patient's pain, plan is to proceed to stress testing per cardiology. Gen: awake, alert HEENT: normocephalic, atraumatic, good hearing acuity, moist mucous membranes Resp: good air exchange, breathing comfortably with no accessory muscle use CVS: good distal perfusion x 4, GI: soft, NTTP, ND : no SPT, no CVAT, sampson catheter not present MSK: no pitting edema, no clubbing Neuro: non-focal, moving all extremities Psych: cooperative, euthymic mood Assessment/plan: Chest pain -Admit inpatient, telemetry -Cardiac consult -Troponins are negative -EKG appears nonischemic -Nitro when necessary for chest pain -Aspirin, statin -Echo, pending -TSH, A1c, lipid panel Intractable nausea and vomiting with odynophagia -Surgery consult for possible EGD (GI service not available at this time) -Zofran when necessary -Advised patient on avoidance of any further NSAIDs -PPI Hypochloremic hyponatremia, likely due to poor oral intake -Continue with IV fluids Acute kidney injury, likely prerenal due to above and dehydration -Continue IV fluids and monitor BMP Metabolic alkalosis, likely due to persistent vomiting -Continue with above management Thrombocytosis -Likely secondary to hemoconcentration -Continue IV fluids Hypokalemia -Replace and monitor DVT prophylaxis -IPCDs The patient is admitted with an anticipated greater than 2 midnight stay for evaluation of chest pain CODE STATUS: Full Code Discussed with: Patient Anticipated discharge date: 2-[address]: Home Objective - Vital Signs Vital signs: Vital Signs Temp 97.9 F 04/11/22 11:07 Pulse 70 04/11/22 11:07 Resp 16 04/11/22 11:07 BP 112/71 04/11/22 11:07 Pulse Ox 96 04/11/22 11:07 FiO2 Intake & Output 04/10/22 04/11/22 04/11/22 18:59 06:59 18:59 Intake Total 360 Balance 360 Intake: Intake, IV Titration 360 Amount Sodium Chloride 0.9% 1, 360 000 ml @ 120 mls/hr IV . Q8H20M [facility] Rx#:[id number] Other: Voiding Method Toilet Toilet # Voids 1 1 - Labs CBC & Chem 7: 04/11/22 07:30 04/11/22 07:30 Labs: Abnormal Lab Results - Last 24 Hours (Table) 04/11/22 04/11/22 Range/Units 07:30 07:30 RBC 3.96 L (4.30-5.90) m/uL MCV 100.9 H (80.0-100.0) fL MCH 36.6 H (25.0-35.0) pg RDW 10.9 L (11.5-15.5) % Sodium 136 L (137-145) mmol/L Potassium 3.4 L (3.5-5.1) mmol/L BUN 21 H (9-20) mg/dL Calcium 8.1 L (8.4-10.2) mg/dL
[2022-04-11 11:38] LABS: Chol/HDL Ratio 3.75 Ratio; LDL Cholesterol,Calculated 55.1 mg/dL (0.0-131.0)
--- NOTE | 2022-04-11 13:34 | CA ---
Transthoracic Echo Report Name: Pineda Alanis Age: 42 Gender: M : 1980 Exam Date: 04/11/2022 08:26 Exam Location: [place] [facility] Ht (in): 70 Wt (lb): 169 Ordering Physician: Petra Ramos MD Attending/Referring Phys: [employer] Supervisor Sonia Menendez RDCS Procedure CPT: Indications: Chest Pain Cardiac Hx: Technical Quality: Good Contrast 1: Total Dose (mL): Contrast 2: Total Dose (mL): MEASUREMENTS (Male / Female) Normal Values 2D ECHO LV Diastolic Diameter PLAX 4.4 cm 4.2 - 5.9 / 3.9 - 5.3 cm LV Systolic Diameter PLAX 2.5 cm IVS Diastolic Thickness 1.1 cm 0.6 - 1.0 / 0.6 - 0.9 cm LVPW Diastolic Thickness 0.9 cm 0.6 - 1.0 / 0.6 - 0.9 cm LV Relative Wall Thickness 0.5 RV Internal Dim ED PLAX 3.2 cm LA Systolic Diameter LX 3.3 cm 3.0 - 4.0 / 2.7 - 3.8 cm LA Volume 37.4 cm??? 18 - 58 / 22 - 52 cm??? M-MODE Aortic Root Diameter MM 3.1 cm MV E Point Septal Separation 0.5 cm AV Cusp Separation MM 2.3 cm DOPPLER AV Peak Velocity 108.3 cm/s AV Peak Gradient 4.7 mmHg MV Area PHT 3.1 cm??? Mitral E Point Velocity 109.2 cm/s Mitral A Point Velocity 50.1 cm/s Mitral E to A Ratio 2.2 MV Deceleration Time 244.4 ms MV E' Velocity 14.0 cm/s Mitral E to MV E' Ratio 7.8 TR Peak Velocity 236.7 cm/s TR Peak Gradient 22.4 mmHg Right Ventricular Systolic Press 26.9 mmHg FINDINGS Left Ventricle Left ventricular ejection fraction is estimated at 60-65 %. Left ventricular cavity size normal. Left ventricular wall thickness normal. Right Ventricle Normal right ventricular size and function. Right ventricular systolic pressure within normal limits. Right Atrium Normal right atrial size. Left Atrium Normal left atrial size. No evidence for an atrial septal defect. Mitral Valve Structurally normal mitral valve. No mitral stenosis, regurgitation or prolapse. Aortic Valve Trileaflet aortic valve. No aortic valve stenosis or regurgitation. Tricuspid Valve Mild tricuspid regurgitation. Pulmonic Valve Trace pulmonic regurgitation. Pericardium Normal pericardium. No pericardial effusion. Aorta Normal size aortic root and proximal ascending aorta. CONCLUSIONS Normal LV systolic function Previewed by: Dr. Juan Diego Aldridge MD (Electronically Signed) Final Date: 11 April 2022 13:33
[2022-04-11] MEDS ORDERED: PROPOFOL 10 MG/ML 20 ML VIAL IV ONE (15:38)
[2022-04-11] MEDS ORDERED: LIDOCAINE 2% INJ 20 MG/ML (2 ML VIAL) ONE (15:38)
[2022-04-11] MEDS ORDERED: IV FLUID CONTINUATION 1,000 ML IV ONE (15:50)
--- NOTE | 2022-04-11 15:56 | P.PCN ---
Date of Procedure: 04/11/22 Preoperative Diagnosis: Nausea vomiting, epigastric pain Postoperative Diagnosis: Nausea, vomiting, epigastric pain, erosive esophagitis, hiatal hernia Procedure(s) Performed: Esophagogastroduodenoscopy Anesthesia: MAC Surgeon: Radha Ambrose Pathology: none sent Condition: stable Disposition: PACU Description of Procedure: Patient's a 42-year-old man presented with a several-day history of nausea and vomiting. We attempted a diet that he had recurrent epigastric pain. He's taken to the endoscopy suite were gastroscope is passed per mouth to the third and fourth portions of the duodenum. Pharynx is unremarkable. The upper esophagus is unremarkable. The distal one third of the esophagus shows erosive esophagitis with friable mucosa and a little exudate. There is a small fixed hiatal hernia. Otherwise the stomach, pylorus and duodenum without evidence of ulcer, mass lesion or other mucosal abnormality. Due to the amount of inflammation in the esophagus no biopsy was obtained. He tolerated the procedure without difficulty and is taken recovery room in satisfactory condition. He should be maintained on Carafate slurry 4 times a day for 2-4 weeks. PPI for 1-2 months. Surgically stable for discharge once he is able to tolerate a diet.
[2022-04-11] MEDS: ATORVASTATIN 40 MG TAB PO SCH (21:19)
[2022-04-11] MEDS: traZODone HCL 100 MG TAB PO PRN (21:23)
[2022-04-12 04:58] VITALS: TEMP 98.2
[2022-04-12] MEDS: SODIUM CHLORIDE 0.9% 1,000 ML IV SCH ×2 (04:59→06:43)
[2022-04-12] MEDS: SUCRALFATE 1 GM TAB PO SCH ×2 (06:44→11:47)
[2022-04-12] MEDS: DIVALPROEX ER 500 MG TAB.ER.24H PO SCH (08:42)
[2022-04-12] MEDS: PROPRANOLOL 10 MG TAB PO SCH (08:42)
[2022-04-12] MEDS: ESCITALOPRAM 20 MG TAB PO SCH (08:42)
[2022-04-12] MEDS: LOSARTAN 50 MG TAB PO SCH (08:42)
[2022-04-12] MEDS: ASPIRIN 81 MG PO SCH (08:42)
[2022-04-12] MEDS: PANTOPRAZOLE 40 MG/10 ML VIAL IVP SCH (08:42)
[2022-04-12 09:00] LABS: Basophils % (A) 0 %; Eosinophils # (A) 0.1 k/uL (0-0.7); Eosinophils % (A) 2 %; HCT 41.7 % (39.0-53.0); HGB 14.7 gm/dL (13.0-17.5); Lymphocytes # (A) 0.9 k/uL (1.0-4.8); Lymphocytes % (A) 17 %; MCH 36.2 pg (25.0-35.0); MCHC 35.2 g/dL (31.0-37.0); MCV 102.9 fL (80.0-100.0); Mean Platelet Volume 8.1; Monocytes # (A) 0.8 k/uL (0-1.0); Monocytes % (A) 14 %; Neutrophils # (A) 3.5 k/uL (1.3-7.7); Neutrophils % (A) 64 %; Platelet Count 259 k/uL (150-450); RBC 4.05 m/uL (4.30-5.90); WBC 5.4 k/uL (3.8-10.6)
[2022-04-12 09:25] LABS: Sodium 136 mmol/L (137-145)
[2022-04-12 09:26] LABS: African American GFR (CKD) >90 (>60 ml/min/1.73 sqM); Anion Gap 8 mmol/L; Blood Urea Nitrogen 11 mg/dL (9-20); Calcium 8.1 mg/dL (8.4-10.2); Carbon Dioxide 28 mmol/L (22-30); Chloride 100 mmol/L (98-107); Glucose 107 mg/dL (74-99); Magnesium 1.4 mg/dL (1.6-2.3); Non-African American GFR(CKD) >90 (>60 ml/min/1.73 sqM)
--- NOTE | 2022-04-12 10:36 | P.PN ---
Subjective This is a pleasant 42-year-old male past medical history significant for hypertension, asthma, seizure disorder, chronic nicotine dependence. 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 We have been asked to see in consultation for chest pain. Patient presents emergency department with nausea and vomiting for 3 days. He states after he had nausea and vomiting he began to have mid sternal and upper chest pressure. It was nonradiating, nonexertional. His symptoms began after the nausea and vomiting. He also notices that his chest discomfort is aggravated by swallowing foods. No specific alleviating factors. He does not have chest discomfort at rest, mostly with swallowing and with vomiting. He denies any history of cardiac disease. He denies a history of CAD, [place], stroke, diabetes. Family history includes his maternal grandparents both had MIs uknown age. He is currently having difficulty eating and drinking because of the chest discomfort when he swallows, currently able to tolerate clear liquids. He is an occasional cigarette smoker. Occasional alcohol use. Denies any illicit drug use. Surgery is consulted for possible procedure. 04/12/2022 Patient seen and examined at bedside, no distress. He denies chest pain shortne ss of breath. Patient underwent EGD yesterday that revealed erosive esophagitis and hiatal hernia. PHYSICAL EXAMINATION Blood pressure 107/64, heart 70, afebrile, oxygen saturations 98% on room air CONSTITUTIONAL: No apparent distress. HEENT: Head is normocephalic. No JVD CHEST EXAMINATION: Lungs are clear to auscultation. No chest wall tenderness is noted on palpation or with deep breathing. HEART EXAMINATION: Regular rate and rhythm. S1, S2 heard. No murmurs, gallops or rub. ABDOMEN: Soft, nontender. Positive bowel sounds. EXTREMITIES: 2+ peripheral pulses, no lower extremity edema and no calf tenderness. NEUROLOGIC EXAMINATION: Patient is awake, alert and oriented x3. ASSESSMENT Chest pain, after nausea and vomiting, also occurs with swallowing of foods. Likely related to erosive gastritis acute coronary syndrome has ruled out Odynophagia Nausea and vomiting Asthma History of seizures Chronic tobacco use PLAN Acute coronary syndrome has ruled out Rest of workup per primary and surgery Recommend stress test as an outpatient. Patient stable to be discharged from cardiology perspective, follow up outpatient Nurse practitioner note has been reviewed by physician. Signing provider agrees with the documented findings, assessment, and plan of care. Objective - Vital Signs Vital signs: Vital Signs Temp 98.2 F 04/12/22 08:38 Pulse 70 04/12/22 10:13 Resp 16 04/12/22 10:13 BP 107/64 04/12/22 08:38 Pulse Ox 98 04/12/22 08:38 FiO2 Intake & Output 04/11/22 04/12/22 04/12/22 18:59 06:59 18:59 Intake Total 1040 940 Balance 1040 940 Intake: IV 800 940 Sodium Chloride 0.9% 1, 600 940 000 ml @ 120 mls/hr IV . Q8H20M BHARATH Rx#:[id number] Oral 240 Other: Voiding Method Toilet Toilet Toilet # Voids 4 - Labs CBC & Chem 7: 04/12/22 07:53 04/12/22 07:53 Labs: Abnormal Lab Results - Last 24 Hours (Table) 04/11/22 04/12/22 04/12/22 Range/Units 07:30 07:53 07:53 RBC 4.05 L (4.30-5.90) m/uL MCV 102.9 H (80.0-100.0) fL MCH 36.2 H (25.0-35.0) pg RDW 11.0 L (11.5-15.5) % Lymphocytes # 0.9 L (1.0-4.8) k/uL Sodium 136 L (137-145) mmol/L Glucose 107 H (74-99) mg/dL Calcium 8.1 L (8.4-10.2) mg/dL Magnesium 1.4 L (1.6-2.3) mg/dL HDL Cholesterol 28.30 L (40.00-60.00) mg/dL
[2022-04-12 11:47] VITALS: BP 135/87; PULSE 62; RESP 18
--- NOTE | 2022-04-12 13:06 | P.DS ---
Providers Date of admission: 04/09/22 19:48 Expected date of discharge: 04/12/22 Attending physician: Petra Ramos MD Consults: 04/09/22 23:54 Consult Physician Urgent Consulting Provider: Radha Ambrose Consult Reason/Comments: odynophagia, ?EGD Do you want consulting provider notified?: Yes 04/10/22 13:38 Consult Physician Routine Consulting Provider: Dada Bagley Consult Reason/Comments: chest pain Do you want consulting provider notified?: Yes Primary care physician: Vel Hughes [facility] Course: Discharge Diagnosis: Chest pain Esophagitis Odynophagia Intractable nausea and vomiting Hypochloremic hyponatremia Dehydration Acute kidney injury Metabolic alkalosis Thrombocytosis Hypokalemia Hospital Course: 42-year-old male with history of hypertension, asthma, seizure disorder, chronic nicotine dependence presented with chest pain, intractable nausea and vomiting. Chest discomfort was mostly aggravated by swallowing foods. Surgery was con sulted due to persistent odynophagia and chest pain. EGD showed erosive esophagitis with friable mucosa and little exudate in the distal one third of esophagus. A small fixed hiatal hernia. No biopsies were performed. Per surgery, patient should be maintained on Carafate and PPI. Cardiology consulted. ACS ruled out. Echo was normal. Cardiology recommending outpatient stress test. Patient received IV fluids for dehydration throughout his stay. At discharge, patient was able to tolerate oral diet. Patient seen and examined at bedside. Vital signs reviewed and stable. General: nontoxic, no distress, appears at stated age Derm: warm, dry Head: atraumatic, normocephalic, symmetric Eyes: EOMI, no lid lag, anicteric sclera Mouth: no lip lesion, mucus membranes moist Cardiovascular: S1S2 reg, no murmur Lungs: CTA bilateral, no rhonchi, no rales , no accessory muscle use Abdominal: soft, nontender to palpation, no guarding, no appreciable organomegaly Ext: no gross muscle atrophy, no edema, no contractures Neuro: CN II-XI grossly intact, no focal neuro deficits Psych: Alert, oriented, appropriate affect A total of 38 minutes of time were spent preparing this complex discharge summary. Patient was discharged on 04/12/22 at 11:09. Patient Condition at Discharge: Stable Plan - Discharge Summary Discharge Rx Participant: Yes New Discharge Prescriptions: New Sucralfate [Carafate] 1 gm PO ACHS #30 tab Pantoprazole [Protonix] 40 mg PO BID #60 tab Continue traZODone HCL [Desyrel] 100 mg PO HS PRN PRN Reason: Insomnia Losartan Potassium 50 mg PO DAILY Cetirizine HCl [Zyrtec] 10 mg PO DAILY Escitalopram [Lexapro] 20 mg PO DAILY Propranolol [Inderal] 10 mg PO TID Divalproex ER [Depakote ER] 500 mg PO TID Discharge Medication List traZODone HCL [Desyrel] 100 mg PO HS PRN 01/30/17 [History] Escitalopram [Lexapro] 20 mg PO DAILY 10/01/20 [History] Losartan Potassium 50 mg PO DAILY 10/01/20 [History] Cetirizine HCl [Zyrtec] 10 mg PO DAILY 04/09/22 [History] Divalproex ER [Depakote ER] 500 mg PO TID 04/09/22 [History] Propranolol [Inderal] 10 mg PO TID 04/09/22 [History] Pantoprazole [Protonix] 40 mg PO BID #60 tab 04/12/22 [Rx] Sucralfate [Carafate] 1 gm PO ACHS #30 tab 04/12/22 [Rx] Follow up Appointment(s)/Referral(s): Anand Zuniga MD [STAFF PHYSICIAN] - 3 Weeks (office will call you for appointment ) Vel Polo MD [Primary Care Provider] - 04/26/22 3:15 pm Patient Instructions/Handouts: Hyponatremia (DC) Activity/Diet/Wound Care/Special Instructions: Please see PCP in 1-2 days. Please get a stress test through your PCP. Discharge Disposition: HOME SELF-CARE
== END 2022-04-12 13:26 | disposition home or self-care (01) | DRG 381 ==
LOC: EC 17:22 → 3SCARD 19:48
PROVIDERS: ADMIT Internal Medicine; ATTEND Internal Medicine
PROC: 0DJ08ZZ Inspection of Upper Intestinal Tract, Via Natural or Artificial Opening Endoscopic (ICD-10-PCS; principal; 2022-04-11 08:30)
DX: K22.10 Ulcer of esophagus without bleeding (principal); E87.1 Hypo-osmolality and hyponatremia; N17.9 Acute kidney failure, unspecified; E87.3 Alkalosis; E87.8 Other disorders of electrolyte and fluid balance, not elsewhere classified; G40.909 Epilepsy, unspecified, not intractable, without status epilepticus; E86.0 Dehydration; E87.6 Hypokalemia; K44.9 Diaphragmatic hernia without obstruction or gangrene; J45.909 Unspecified asthma, uncomplicated; I10 Essential (primary) hypertension; G47.30 Sleep apnea, unspecified; F32.A Depression, unspecified; F41.9 Anxiety disorder, unspecified; M19.90 Unspecified osteoarthritis, unspecified site; F17.210 Nicotine dependence, cigarettes, uncomplicated; Z71.6 Tobacco abuse counseling; Z79.01 Long term (current) use of anticoagulants; Z79.1 Long term (current) use of non-steroidal anti-inflammatories (NSAID); Z79.899 Other long term (current) drug therapy; Z96.649 Presence of unspecified artificial hip joint; Z88.8 Allergy status to other drugs, medicaments and biological substances
CPT/HCPCS: 36415; 43235; 71046; 80048; 80053; 80061; 80164; 83036; 83690; 83735; 84443; 84484; 85025; 85610; 85730; 93005; 93306; 94760; 96360; 96361; 99285

== ENCOUNTER → 2023-01-30 | Outpatient (CLI) | payer OTHER ==
[2023-01-30 19:17] LABS: Basophils # (A) 0.05 X 10*3/uL (0.00-0.10); Basophils % (A) 0.7 %; Eosinophils # (A) 0.19 X 10*3/uL (0.04-0.35); Eosinophils % (A) 2.8 %; HGB 14.7 d/dL (13.0-17.0); Lymphocytes # (A) 1.23 X 10*3/uL (0.90-5.00); Lymphocytes % (A) 17.9 %; MCH 34.9 pg (27.0-32.0); MCHC 34.2 d/dL (32.0-37.0); MCV 102.1 FL (80.0-97.0); Mean Platelet Volume 10.7 FL (9.5-12.2); Monocytes % (A) 10.2 %; NRBC Per 100 WBC 0 X 10*3/uL (0.00-0.01); Neutrophils # (A) 4.66 X 10*3/uL (1.80-7.70); Neutrophils % (A) 67.8 %; Platelet Count 233 X 10*3/uL (140-440); RBC 4.21 X 10*6/uL (4.40-5.60); RDW 12.9 % (11.5-14.5); WBC 6.87 X 10*3/uL (4.50-10.00)
[2023-01-30 20:11] LABS: INR <0.93 sec (0.93-1.11)
[2023-01-30 20:20] LABS: % Iron Saturation 38.46 (15.00-50.00); ALT 10 U/L (10-49); AST 18 U/L (14-35); Albumin 4.4 d/dL (3.8-4.9); Albumin/Globulin Ratio 1.83 Ratio (1.60-3.17); Alkaline Phosphatase 56 U/L (41-126); Calcium 9.7 mg/dL (8.7-10.3); Carbon Dioxide 27.4 mmol/L (21.6-31.8); Chloride 101 mmol/L (96-109); Globulin 2.4 d/dL (1.6-3.3); Glucose 91 mg/dL (70-110); Iron 110 UG/DL (65-175); Magnesium 1.8 mg/dL (1.5-2.4); Potassium 5.1 mmol/L (3.5-5.5); Sodium 139 mmol/L (135-145); Total Bilirubin <0.2 mg/dL (0.3-1.2); Total Iron Binding Capacity 286 UG/DL (228-460); Total Protein 6.8 d/dL (6.2-8.2)
== END | disposition home or self-care (01) ==
LOC: LABPAT 11:48
PROVIDERS: ATTEND Orthopaedic Surgery
DX: Z01.812 Encounter for preprocedural laboratory examination (principal); Z22.322 Carrier or suspected carrier of Methicillin resistant Staphylococcus aureus; M87.852 Other osteonecrosis, left femur; I10 Essential (primary) hypertension; F10.10 Alcohol abuse, uncomplicated; D64.9 Anemia, unspecified
CPT/HCPCS: 80053; 82607; 82728; 82746; 83036; 83540; 83550; 83735; 85025; 85610; 87070

== ENCOUNTER → 2023-02-28 | Outpatient (CLI) | payer OTHER | END | disposition home or self-care (01) | LOC: LABPAT 10:52 | PROVIDERS: ATTEND Orthopaedic Surgery | DX: Z53.9 Procedure and treatment not carried out, unspecified reason (principal) ==

== ENCOUNTER 2023-03-07 08:37 | Day surgery (SDC) | payer OTHER ==
--- NOTE | 2023-03-06 08:36 | P.HPOR ---
History of Present Illness H&P Date: 03/06/23 Chief Complaint: Left hip pain The patient's a 43-year-old male who presents with progressive left hip pain for the past couple of years worsening recently. He is having pain with any weightbearing activities. Intermittently he is limping. He previously underwent right total hip arthroplasty for avascular necrosis in 2020. Review of Systems As per HPI Past Medical History Past Medical History: Asthma, Hypertension, Osteoarthritis (OA), Seizure Disorder, Sleep Apnea/CPAP/BIPAP Additional Past Medical History / Comment(s): Sleeping problems (no cpap), arthritis R hand, last seizure in december 2016, low magnesium frequently, previous alcohol abuse History of Any Multi-Drug Resistant Organisms: None Reported Past Surgical History: Cholecystectomy, Joint Replacement Additional Past Surgical History / Comment(s): R hand fracture repair, rt hip replacement Past Anesthesia/Blood Transfusion Reactions: No Reported Reaction Additional Past Anesthesia/Blood Transfusion Reaction / Comment(s): woke up during hand surgery (pt was 18 years old at time of surgery). no hx blood transfusion Smoking Status: Current some day smoker - Past Family History Father Family Medical History: Cancer Additional Family Medical History / Comment(s): Prostate cancer. Mother History Unknown: Yes Family Medical History: No Reported History Additional Family Medical History / Comment(s): Pt states he does not have much contact with his mother. Medications and Allergies Home Medications Medication Instructions Recorded Confirmed Type traZODone HCL [Desyrel] 100 mg PO HS PRN 01/30/17 01/30/23 History Escitalopram [Lexapro] 20 mg PO DAILY 10/01/20 01/30/23 History Losartan Potassium 50 mg PO DAILY 10/01/20 01/30/23 History Cetirizine HCl [Zyrtec] 10 mg PO DAILY 04/09/22 01/30/23 History Divalproex ER [Depakote ER] 500 mg PO TID 04/09/22 01/30/23 History Propranolol [Inderal] 10 mg PO TID 04/09/22 01/30/23 History Pantoprazole [Protonix] 40 mg PO BID #60 tab 04/12/22 01/30/23 Rx Sucralfate [Carafate] 1 gm PO ACHS #30 tab 04/12/22 01/30/23 Rx Albuterol Sulfate [Ventolin HFA] 2 puff INHALATION DAILY PRN 01/30/23 01/30/23 History Allergies Allergy/AdvReac Type Severity Reaction Status Date / Time lisinopril Allergy Swelling Verified 01/30/23 16:03 hot sauce Allergy Swelling Uncoded 01/30/23 16:03 Physical Examination - Hip left Tenderness with palpation: anterior Pain with motion: internal rotation and hip flexion ROM: flexion: 80 degrees ROM: internal rotation: 10 degrees (With pain) ROM: external rotation: 60 degrees Strength: extension: 5/5 Strength: flexion: 5/5 Strength: abduction: 5/5 Tests: impingement tests: positive Results The patient is a well-developed well-nourished male proximal 5 foot 10, 160 pounds of mesomorphic habitus. HEENT exam is nonfocal, neck supple. He has painful passive motion of the left hip. Clinically he has 1/2 cm shortening of the left lower extremity. He does have an antalgic gait pattern. His distal neurovascular appears intact in the left lower extremity. - Diagnostic results Hip x-ray: image reviewed (X-rays of the left hip obtained in the office show stage III avascular necrosis of the femoral head with lateral head collapse.) Assessment and Plan Assessment: Left hip avascular necrosis History of alcohol abuse Plan: I talked the patient length regarding his condition and treatment options. At this point he is quite symptomatic and opts to proceed with surgery. We'll plan to proceed with left total hip arthroplasty utilizing a lateral approach. We will institute DVT prophylaxis postoperatively. Risks and benefits were discussed at length in layman's terms.
[~2023-03-07 08:37] MED LIST changes: +LACTATED RINGERS 1,000 ML IV SCH; -LIDOCAINE 1% (10MG/ML) FOR IV START INTRADERMA PRN; +MIDAZOLAM 2 MG/2 ML VIAL IV PRN; +ONDANSETRON 4 MG/2 ML VIAL IVP ONE; -ONDANSETRON 4 MG/2 ML VIAL IVP PRN; +TRANEXAMIC 1,000 MG/100ML-NACL 1,000 MG in SALINE 1 100ML.BAG IVPB PRN; -TRANEXAMIC ACID 1,000 MG in SODIUM CHLORIDE 0.9% 100 ML IVPB PRN
[2023-03-07] MEDS ORDERED: fentaNYL (PF) 50 MCG/ML 2 ML AMP IVP ONE (10:03)
[2023-03-07] MEDS ORDERED: MIDAZOLAM 2 MG/2 ML VIAL IVP ONE (10:03)
[2023-03-07] MEDS ORDERED: ePHEDrine 50 MG/ML 1 ML VIAL ONE (13:42)
[2023-03-07] MEDS ORDERED: MIDAZOLAM 2 MG/2 ML VIAL ONE (13:42)
[2023-03-07] MEDS ORDERED: PROPOFOL 10 MG/ML 20 ML VIAL IV ONE (13:42)
[2023-03-07] MEDS ORDERED: PHENYLEPHRINE-0.9% NACL SYG 1,000 MCG/10 ML SYRINGE ONE (13:42)
[2023-03-07] MEDS ORDERED: TRANEXAMIC 1,000 MG/100ML-NACL PREMIX BAG ONE (13:42)
[2023-03-07] MEDS ORDERED: ROPIVACAINE 5 MG/ML 30 ML VIAL ONE (13:42)
[2023-03-07] MEDS ORDERED: fentaNYL (PF) 50 MCG/ML 2 ML AMP ONE (13:42)
[2023-03-07] MEDS ORDERED: ceFAZolin 1,000 MG in SODIUM CHLORIDE 0.9% 1,000 ML IRRIGATION ONE (14:20)
--- NOTE | 2023-03-07 14:27 | P.ANPRN ---
Procedure Note - Anesthesia - Nerve Block Performed Left Jared Single Time Out Performed: Yes (1002) Date of Procedure: 03/07/23 Procedure Start Time: 10:03 Procedure Stop Time: 10:08 Location of Patient: PreOp Indication: Acute Post-Operative Pain, Requested by Surgeon Specifically requested for management of pain by DrTyesha: Mau Hillman Sedation Type: Sedate with meaningful contact maintained Preparation: Sterile Prep Position: Supine Catheter: None Needle Types: Pajunk Needle Gauge: 21 Ultrasound used to visualize needle placement: Yes Ultrasound used to observe medication spread: Yes Injectate: 0.5% Ropivacaine (see comment for volume) (30cc) Blood Aspirated: No Pain Paresthesia on Injection Noted: No Resistance on Injection: Normal Image Stored and Saved: Yes Events: Uneventful and Well Tolerated
[2023-03-07] MEDS ORDERED: NALOXONE 0.4 MG/ML 1 ML VIAL IV PRN (15:18)
[2023-03-07] MEDS ORDERED: HYDROmorphone 1 MG/ML 1 ML SYRINGE IVP PRN (15:18)
[2023-03-07] MEDS ORDERED: HYDROcodone/APAP 5-325MG 1 EACH TAB PO PRN (15:18)
[2023-03-07] MEDS ORDERED: HYDROmorphone 0.5 MG/0.5 ML SYRINGE IVP PRN (15:18)
[2023-03-07] MEDS ORDERED: MAGNESIUM HYDROXIDE 2,400 MG/30 ML CUP PO PRN (15:18)
[2023-03-07] MEDS ORDERED: LACTATED RINGERS 1,000 ML IV ONE (15:21)
--- NOTE | 2023-03-07 15:38 | P.OP ---
Date of Procedure: 03/07/23 Preoperative Diagnosis: Left hip stage III avascular necrosis Postoperative Diagnosis: Same Procedure(s) Performed: Left total hip arthroplastypress-fitlateral approach Implants: Depuy Corail size 11 high offset collared press-fit femoral stem, 36+5 cobalt chrome femoral head, 52 mm [place] acetabular shell with neutral polyethylene liner. Anesthesia: spinal Surgeon: Mau Hillman Arcade Technician #1: Benjie Pastor Estimated Blood Loss (ml): 100 Pathology: none sent Condition: stable Disposition: PACU Indications for Procedure: The patient's a 43-year-old male who presents with progressive left hip pain secondary to avascular necrosis. A discussion of the risks and benefits of operative intervention was made with the patient. He opted to proceed with surgery. Operative options were discussed. He opted to proceed with left total hip arthroplasty. Specific risks of surgery to include infection, neurovascular injury, fracture, leg length discrepancy, instability, possible component loosening/failure need for subsequent procedures was discussed. Informed consent was obtained. Operative Findings: As below Description of Procedure: The patient was brought to the operating room, and after induction of spinal anesthesia was placed in a lateral decubitus position. The bony prominences were appropriately padded. The pelvis was stable perpendicular to the floor with a pegboard. The left lower extremity was prepped and draped in normal fashion. A 12 cm incision was then made centered over the greater trochanter extending superiorly to level the ASIS and distally in line with the femoral shaft. The skin and subcutaneous tissues were divided sharply. Electrocautery was used for hemostasis. The fascia miguel and gluteus quentin fascia was split in line with the skin incision. The muscle fibers were bluntly dissected proximally. A self-retaining retractor was placed. The anterior and posterior margins of the gluteus medius muscles identified and the anterior two thirds was detached from the greater trochanter with electrocautery. The gluteus minimus tendon was identified and detached in a similar fashion. A wide capsulotomy was performed. The femoral neck cut was made approximately 1 1/2 cm above the level of the lesser trochanter with a sagittal saw at a 45 the shaft. The head was then extracted with a corkscrew. Attention was then paid towards preparing the acetabulum. Anterior and posterior retractors were placed. The remaining capsular labral tissues debrided sharply clearly defining the acetabular margins. Began reaming with a 45 mm reamer taking care to initially medialize, then reaming at 45 of abduction and 20 of anteversion. Sequential reaming is performed up to 51 mm. This was down to bleeding bony surface. A trial 52 mm acetabular shell was inserted at 45 of abduction and 20 of anteversion. This was fully seated. There was good rim fit and stability. A neutral polyethylene liner was then impacted. Care taken to avoid any soft tissue interposition. Attention was then paid towards preparing the proximal femur. A box chisel was used to open the metaphyseal region. A canal finder was used to find the femoral canal. Sequential broaching was performed up to a size 11. This is placed in 15 of anteversion with the leg perpendicular floor judging off the trans-epicondylar axis. There is good rotational stability. A calcar mill was used to fashion the medial calcar. A trial 135 high offset neck along with a 36 mm + 5 trial head was placed. The hip was gently reduced. It was taken through range of motion. I felt to be stable in flexion and extension with internal and external rotation. I felt there was adequate restorationism of soft tissue tension. The hip was gently dislocated. The trial components removed. Pulsatile lavage was utilized. The final size 11 135 degree high offset standard collared femoral stem was inserted again with the leg perpendicular to the floor in 15 of anteversion. Again there was good rotational stability. A 36 mm +5 cobalt chrome femoral head was gently impacted. The hip was gently reduced. Again it was taken through motion and felt to be stable in flexion and extension with internal and external rotation. Pulsatile lavage was again utilized. With the leg in abduction the gluteus minimus and medius tendons reattached to the greater trochanter with #2 Ethibond suture. There was minimal drainage therefore a deep drain was not placed. The fascia miguel and gluteus quentin fascia was closed with #2 Ethibond suture. The subcutaneous tissues were reapproximated interrupted 2-0 Vicryl sutures. The skin was reapproximated with 3-0 subcuticular strata fix suture. Skin tape and adhesive was applied. A sterile dressing was applied. The patient was awoken from sedation and transferred to recovery room in good condition. Blood loss was estimated 100 mL. No complications were incurred. Sponge and needle counts were correct in the case. Benjie FAUSTIN assisted during the major composes case to include exposure, implantation, and closure.
[2023-03-07] MEDS ORDERED: ALBUTEROL NEBULIZED 2.5 MG/3 ML INHALATION PRN (17:18)
[2023-03-07] MEDS ORDERED: traZODone HCL 100 MG TAB PO PRN (17:18)
--- NOTE | 2023-03-07 17:20 | P.CONS ---
History of Present Illness - Reason for Consult Consult date: 03/07/23 - Chief Complaint medical management - History of Present Illness 43-year-old man with a medical history of seizures, avascular necrosis, depression, hypertension, JIM, insomnia presented for evaluation of elective left total hip arthroplasty. Medicine was consulted for medical management. Patient has no complaints at this time, says his pain is well-controlled. He denies fevers, chills, nausea, vomiting, chest pain, palpitations, ROBERT-3, recently, cough, dyspnea, abdominal pain, constipation, diarrhea, dysuria, dyschezia, numbness/weakness of extremities. Upon initial evaluation, patient was afebrile, 96/64, heart rate 63, 97% on room air. No labs to review. Hip x-ray demonstrates postoperative changes of left hip arthroplasty with good hardware alignment and no complications, this was personally interpreted. All Systems reviewed and pertinent positives and negatives noted in HPI, all other symptoms are negative Gen: in no apparent distress, resting comfortably in bed Eyes: PERRL, no scleral injection or icterus HENT: normocephalic, atraumatic, good hearing acuity, moist mucous membranes Neck: no tracheal deviation, full range of motion Resp: good air exchange, breathing comfortably with no accessory muscle use, no tactile fremitus CVS: good distal perfusion x 4, no pitting edema GI: soft, NTTP, ND, no hepatosplenomegaly : no suprapubic tenderness, no CVAT, sampson catheter not present MSK: no clubbing, no cyanosis, no noted contractures of extremities Skin: no noted rashes, petechiae; temperature of skin is appropriate Neuro: moving all extremities without signs of weakness, CN II-XII intact Psych: cooperative, euthymic mood, insight and judgment intact Labs and images as above Assessment: Seizure disorder Depression Hypertension JIM Insomnia Plan: Vital signs, labs, images reviewed as above Hip x-ray was personally interpreted and noted in the HPI above Home medications reviewed and reconciled Basic metabolic panel, magnesium ordered for tomorrow Past Medical History Past Medical History: Asthma, Hypertension, Osteoarthritis (OA), Seizure Disorder, Sleep Apnea/CPAP/BIPAP Additional Past Medical History / Comment(s): Sleeping problems (no cpap), arthritis R hand, last seizure in december 2016, low magnesium frequently, previous alcohol abuse History of Any Multi-Drug Resistant Organisms: None Reported Past Surgical History: Cholecystectomy, Joint Replacement, Orthopedic Surgery Additional Past Surgical History / Comment(s): R hand fracture repair, rt hip replacement Past Anesthesia/Blood Transfusion Reactions: No Reported Reaction Additional Past Anesthesia/Blood Transfusion Reaction / Comm: woke up during hand surgery (pt was 18 years old at time of surgery). no hx blood transfusion Past Psychological History: Anxiety, Depression Additional Psychological History / Comment(s): medication helps Smoking Status: Current every day smoker Past Alcohol Use History: Occasional Additional Past Alcohol Use History / Comment(s): 4-6 cigarrettes per day, 6 drinks per week, Past Drug Use History: None Reported - Past Family History Father Family Medical History: Cancer Additional Family Medical History / Comment(s): Prostate cancer. Mother History Unknown: Yes Family Medical History: No Reported History Additional Family Medical History / Comment(s): Pt states he does not have much contact with his mother. Medications and Allergies Home Medications Medication Instructions Recorded Confirmed Type traZODone HCL [Desyrel] 100 mg PO HS PRN 01/30/17 03/07/23 History Escitalopram [Lexapro] 20 mg PO DAILY 10/01/20 03/07/23 History Losartan Potassium 50 mg PO DAILY 10/01/20 03/07/23 History Divalproex ER [Depakote ER] 500 mg PO TID 04/09/22 03/07/23 History Propranolol [Inderal] 10 mg PO TID 04/09/22 03/07/23 History Pantoprazole [Protonix] 40 mg PO BID #60 tab 04/12/22 03/07/23 Rx Sucralfate [Carafate] 1 gm PO ACHS #30 tab 04/12/22 03/07/23 Rx Albuterol Sulfate [Ventolin HFA] 2 puff INHALATION DAILY PRN 01/30/23 03/07/23 History Allergies Allergy/AdvReac Type Severity Reaction Status Date / Time lisinopril Allergy Swelling Verified 03/07/23 09:40 hot sauce Allergy Swelling Uncoded 03/07/23 09:40 Physical Exam Osteopathic Statement: *. No significant issues noted on an osteopathic structural exam other than those noted in the History and Physical/Consult. Vitals: Vital Signs Temp Pulse Resp BP Pulse Ox 03/07/23 16:28 63 17 96/64 97 03/07/23 16:17 61 16 94/60 97 03/07/23 16:02 55 L 16 91/55 96 03/07/23 15:47 56 L 16 91/58 100 03/07/23 15:32 97.5 F L 71 16 98/65 100 03/07/23 10:10 54 L 16 102/71 96 03/07/23 09:38 97.7 F 58 L 18 113/56 96 Intake and Output 03/07/23 03/07/23 03/07/23 06:59 14:59 22:59 Intake Total 1051 0 Output Total 100 Balance 1051 -100 Intake: IV 1051 0 Output: Estimated Blood Loss 100 Other: Weight 73 kg 73 kg
[2023-03-07] MEDS: HYDROcodone/APAP 7.5-325MG 1 EACH TAB PO PRN (18:56)
[2023-03-07] MEDS ORDERED: SENNOSIDES-DOCUSATE SODIUM 1 EACH TAB PO SCH (21:00)
[2023-03-07] MEDS: SUCRALFATE 1 GM TAB PO SCH ×2 (21:26→22:01)
[2023-03-07] MEDS: DIVALPROEX ER 500 MG TAB.ER.24H PO SCH (22:01)
[2023-03-07] MEDS: PANTOPRAZOLE 40 MG TABLET PO SCH (22:02)
[2023-03-07] MEDS: PROPRANOLOL 10 MG TAB PO SCH (22:17)
--- NOTE | 2023-03-07 23:01 | XR ---
EXAMINATION TYPE: XR Hip Limited LT DATE OF EXAM: 03/07/2023 COMPARISON: None HISTORY: Post surgery TECHNIQUE: AP left hip FINDINGS: No acute fractures evident. There is a left hip prosthesis with acetabular component. Posts urgical soft tissue changes are present. IMPRESSION: 1. No acute fracture post left hip replacement
[2023-03-08] MEDS: HYDROcodone/APAP 7.5-325MG 1 EACH TAB PO PRN ×3 (03:22→13:55)
[2023-03-08] MEDS: hydrOXYzine pamoate 25 MG CAP PO PRN ×2 (03:23→08:11)
[2023-03-08] MEDS: SUCRALFATE 1 GM TAB PO SCH ×3 (06:11→17:06)
[2023-03-08 08:56] LABS: Basophils # (A) 0.02 X 10*3/uL (0.00-0.10); Basophils % (A) 0.2 %; Eosinophils # (A) 0.01 X 10*3/uL (0.04-0.35); Eosinophils % (A) 0.1 %; HCT 36.6 % (39.6-50.0); HGB 12.4 d/dL (13.0-17.0); Lymphocytes # (A) 1.05 X 10*3/uL (0.90-5.00); Lymphocytes % (A) 9.5 %; MCH 35.1 pg (27.0-32.0); MCHC 33.9 d/dL (32.0-37.0); MCV 103.7 FL (80.0-97.0); Mean Platelet Volume 11.3 FL (9.5-12.2); Monocytes # (A) 1.18 X 10*3/uL (0.20-1.00); Monocytes % (A) 10.6 %; NRBC Per 100 WBC 0 X 10*3/uL (0.00-0.01); Neutrophils % (A) 79.2 %; Platelet Count 231 X 10*3/uL (140-440); RBC 3.53 X 10*6/uL (4.40-5.60); RDW 12.7 % (11.5-14.5)
[2023-03-08] MEDS ORDERED: RIVAROXABAN 10 MG TAB PO SCH (09:00)
[2023-03-08] MEDS ORDERED: ESCITALOPRAM 20 MG TAB PO SCH (09:00)
[2023-03-08] MEDS ORDERED: LOSARTAN 50 MG TAB PO SCH (09:00)
[2023-03-08] MEDS: PANTOPRAZOLE 40 MG TABLET PO SCH (09:02)
[2023-03-08] MEDS: PROPRANOLOL 10 MG TAB PO SCH ×2 (09:03→15:33)
[2023-03-08] MEDS: DIVALPROEX ER 500 MG TAB.ER.24H PO SCH ×2 (09:03→15:33)
[2023-03-08 09:07] LABS: BUN/Creat Ratio 15.75 Ratio (12.00-20.00); Blood Urea Nitrogen 12.6 mg/dL (9.0-27.0); Carbon Dioxide 30.1 mmol/L (21.6-31.8); Chloride 99 mmol/L (96-109); Glucose 109 mg/dL (70-110); Magnesium 1.3 mg/dL (1.5-2.4); Potassium 4.5 mmol/L (3.5-5.5); Sodium 139 mmol/L (135-145)
--- NOTE | 2023-03-08 09:43 | P.PN ---
Subjective Progress Note Date: 03/08/23 Patient has no new complaints today. Does report that his hip is a little bit sore today. Able to ambulate with the use of a walker without supervision. Gen: awake, alert HEENT: normocephalic, atraumatic, good hearing acuity, moist mucous membranes Resp: good air exchange, breathing comfortably with no accessory muscle use CVS: good distal perfusion x 4, GI: soft, NTTP, ND : no SPT, no CVAT, sampson catheter not present MSK: no pitting edema, no clubbing Neuro: non-focal, moving all extremities Psych: cooperative, euthymic mood Hospital course: 43-year-old man with a medical history of seizures, avascular necrosis, depression, hypertension, JIM, insomnia presented for evaluation of elective l eft total hip arthroplasty. Medicine was consulted for medical management. Upon initial evaluation, patient was afebrile, 96/64, heart rate 63, 97% on room air. No labs to review. Hip x-ray demonstrates postoperative changes of left hip arthroplasty with good hardware alignment and no complications, this was personally interpreted. Assessment: Seizure disorder Depression Hypertension JIM Insomnia Plan: Patient is hemodynamically stable, 122/70, heart rate 62, 96% on room air CBC today demonstrates mild leukocytosis, expectation postsurgical; mild anemia to 12.4, also expected postsurgically. Basic metabolic panel today is unremarkable. Magnesium is 1.3. Supplement patient with 4 g of magnesium sulfate IV Otherwise, patient is medically stable for discharge Discharge medications reviewed and reconciled Objective - Vital Signs Vital signs: Vital Signs Temp 98.1 F 03/08/23 07:17 Pulse 62 03/08/23 07:17 Resp 18 03/08/23 07:17 BP 122/70 03/08/23 07:17 Pulse Ox 96 03/08/23 07:17 FiO2 Intake & Output 03/07/23 03/08/23 03/08/23 18:59 06:59 18:59 Intake Total 1591 Output Total 100 500 Balance 1491 -500 Weight 73 kg Intake: IV 1051 Oral 540 Output: Urine 500 Straight 500 Estimated Blood Loss 100 Other: # Voids 0 - Labs CBC & Chem 7: 03/08/23 06:11 03/08/23 06:11 Labs: Abnormal Lab Results - Last 24 Hours (Table) 03/08/23 03/08/23 Range/Units 06:11 06:11 WBC 11.10 H (4.50-10.00) X 10*3/uL RBC 3.53 L (4.40-5.60) X 10*6/uL Hgb 12.4 L (13.0-17.0) d/dL Hct 36.6 L (39.6-50.0) % MCV 103.7 H (80.0-97.0) FL MCH 35.1 H (27.0-32.0) pg Neutrophils # 8.80 H (1.80-7.70) X 10*3/uL Monocytes # 1.18 H (0.20-1.00) X 10*3/uL Eosinophils # 0.01 L (0.04-0.35) X 10*3/uL Magnesium 1.3 L (1.5-2.4) mg/dL
--- NOTE | 2023-03-08 10:43 | P.DS ---
Providers Date of admission: 03/07/2023 Expected date of discharge: 03/08/23 Attending physician: Mau Hillman Consults: 03/07/23 15:18 Consult Physician Routine Consulting Provider: Melodie Acharya Consult Reason/Comments: medical management s/p LTHA Do you want consulting provider notified?: Yes Primary care physician: Vel Hughes [facility] Course: Date of admission: 03/07/2023 Date of discharge: 03/08/2023 Admission diagnosis: Left hip avascular necrosis Discharge diagnosis: Came Attending physician: Dr. Hillman Surgical procedures: Left total hip arthroplasty Brief history: Patient is a 43-year-old male with a history of avascular necrosis left hip. At this point patient has failed conservative treatment measures and has opted to proceed with a elective left total hip arthroplasty. Hospital course: Details of patient's surgery can be found in operative report. Patient tolerated the procedure well and was subsequently transported to orthopedic floor. Patient's orthopeidc and medical care was provided daily. Patient had daily laboratory tests performed for evaluation of overall blood counts. Patient had daily physical therapy to include strengthening range of motion as well as education with walker ambulation. Patient was treated with Xarelto for their postoperative DVT prophylaxis during their inpatient stay. Patient was noted to have a relatively uneventful postoperative course. Patient reported satisfactory pain control with oral pain medications by postoperative day 1. Patient showed satisfactory progress with physical therapy. Patient moved steadily through the program and had no difficulty meeting the goals by postoperative day 1. Given patient's otherwise satisfactory course and having met physical therapy goals, plan is to discharge patient home with health services on postoperative day 1. Discharge condition/disposition: Patient will be discharged home with health services in stable condition. Discharge medications: Instructions are given on resumption of patient's normal daily medications per primary care recommendation, in addition patient will be prescribed Richards 7.5 mg/325 mg; Eliquis 2.5 mg twice a day 2 weeks; senna. Discharge instructions: 1. Wound care and infection precautions, keep incision dry and covered while showering, no lotions, creams, moisturizers. No soaking, tubs, pools, hottubs. Do not scrub over the incision. 2. Weight-bear as tolerated with walker / cane until follow-up. 3. Ice and elevate when necessary. Do not exceed 20 minutes per hour with ice pack. 4. Utilize compression sleeve until seen at first follow up appointment. 5. Visiting nursing care. 6. Home physical therapy. 7. Pain meds and anticoagulants per prescription. 8. Pain medication has potential to cause constipation. Increase oral fluid and fiber intake. Contact primary care provider if you have not had a bowel movement within 48 hours after discharge 9. No anti-inflammatory medication until discussed at first post operative visit, this including Motrin, Aleve, Mobic, Diclofenac. 10. Follow up in office at 2 weeks postop with Eusebio Silva PA-C / Benjie Pastor PA-C 11. Follow up with your primary care doctor 7-10 days after discharge. 12. Contact [facility] with any questions, . Assessment: Avascular necrosis left hip Procedures: Left total hip arthroplasty Patient Condition at Discharge: Good Plan - Discharge Summary Discharge Rx Participant: Yes New Discharge Prescriptions: New HYDROcodone/APAP 7.5-325MG [Richards 7.5] 1 - 2 each PO Q6HR PRN #32 tab PRN Reason: Pain Apixaban [Eliquis] 2.5 mg PO BID #60 tab Sennosides/Docusate Sodium [Senna Plus 8.6-50 mg Softgel] 1 each PO DAILY #20 capsule Continue traZODone HCL [Desyrel] 100 mg PO HS PRN PRN Reason: Insomnia Losartan Potassium 50 mg PO DAILY Sucralfate [Carafate] 1 gm PO ACHS #30 tab Pantoprazole [Protonix] 40 mg PO BID #60 tab Escitalopram [Lexapro] 20 mg PO DAILY Propranolol [Inderal] 10 mg PO TID Divalproex ER [Depakote ER] 500 mg PO TID Albuterol Sulfate [Ventolin HFA] 2 puff INHALATION DAILY PRN PRN Reason: Wheezing Discharge Medication List traZODone HCL [Desyrel] 100 mg PO HS PRN 01/30/17 [History] Escitalopram [Lexapro] 20 mg PO DAILY 10/01/20 [History] Losartan Potassium 50 mg PO DAILY 10/01/20 [History] Divalproex ER [Depakote ER] 500 mg PO TID 04/09/22 [History] Propranolol [Inderal] 10 mg PO TID 04/09/22 [History] Pantoprazole [Protonix] 40 mg PO BID #60 tab 04/12/22 [Rx] Sucralfate [Carafate] 1 gm PO ACHS #30 tab 04/12/22 [Rx] Albuterol Sulfate [Ventolin HFA] 2 puff INHALATION DAILY PRN 01/30/23 [History] Apixaban [Eliquis] 2.5 mg PO BID #60 tab 03/08/23 [Rx] HYDROcodone/APAP 7.5-325MG [Richards 7.5] 1 - 2 each PO Q6HR PRN #32 tab 03/08/23 [Rx] Sennosides/Docusate Sodium [Senna Plus 8.6-50 mg Softgel] 1 each PO DAILY #20 capsule 03/08/23 [Rx] Follow up Appointment(s)/Referral(s): Benjie Pastor, BRET [PHYSICIAN INCUBATOR OPERATOR] - 2 Weeks Patient Instructions/Handouts: Total Hip Replacement (DC) Activity/Diet/Wound Care/Special Instructions: Orthopedic Discharge Instructions: 1. Wound care and infection precautions, keep incision dry and covered while showering, no lotions, creams, moisturizers. No soaking, pools, hot tubs. Do not scrub over incision. 2. Weight-bear as tolerated with walker / cane until follow-up. 3. Ice and elevate when necessary. Do not exceed 20 minutes per hour with ice pack. 4. Utilize compression sleeve until seen at first follow up appointment. 5. Pain meds and anticoagulants per prescription. 6. Pain medication has potential to cause constipation. Increase oral fluid and fiber intake. Contact primary care provider if you have not had a bowel movement within 48 hours after discharge. 7. No anti-inflammatory medication until discussed at first post operative visit, this including Motrin, Aleve, Mobic, Diclofenac. 8. Follow up in office at 2 weeks postop with Eusebio Silva PA-C / Benjie Pastor PA-C 9. Follow up with your primary care doctor 7-10 days after discharge. 10. Contact [facility] with any questions, . Keep incision clean, dry, intact. While showering, cover fusion tape with Saran wrap. Keep fusion tape on until follow-up appointment in office in 2 weeks Discharge Disposition: HOME WITH HOME HEALTH SERVICES
--- NOTE | 2023-03-08 10:46 | P.PN ---
Subjective Progress Note Date: 03/08/23 Principal diagnosis: Avascular necrosis left hip Patient seen at bedside this morning lying semirecumbent position with dressing over left hip. Patient says he has already work with physical therapy this morning and walked around the [facility] and up-and-down stairs. Patient says he has been up walking around the room since surgery was performed yesterday. Patient says he has urinated several times without issue since surgery. Patient says he has not had bowel movement yet, however, patient says he has been passing gas. Patient says he does have a walker and cane at home already. Patient was sleeping poorly going home later stay. Patient denies any other issues at this time. Patient denies chest pain, fever, shortness of breath, nausea, vomiting or change in vision, loss of bowel/bladder control. Objective - Vital Signs Vital signs: Vital Signs Temp 98.1 F 03/08/23 07:17 Pulse 62 03/08/23 07:17 Resp 18 03/08/23 07:17 BP 122/70 03/08/23 07:17 Pulse Ox 96 03/08/23 07:17 FiO2 Intake & Output 03/07/23 03/08/23 03/08/23 18:59 06:59 18:59 Intake Total 1591 Output Total 100 500 Balance 1491 -500 Weight 73 kg Intake: IV 1051 Oral 540 Output: Urine 500 Straight 500 Estimated Blood Loss 100 Other: # Voids 0 - Exam Left hip: Incision is clean, dry, and intact. The exofin fusion tape is in good condition. There is minimal soft tissue swelling and ecchymosis surrounding the medial and lateral aspects of the incision. Calf is soft, no tenderness with palpation. Plantar flexion, dorsiflexion, EHL, FHL are intact. Sensory exam to light touch throughout the extremity is intact, dorsal pedis pulses 2+. - Labs CBC & Chem 7: 03/08/23 06:11 03/08/23 06:11 Assessment and Plan Assessment: 1. Avascular necrosis left hip - Postoperative day #1 status post left total hip arthroplasty Plan: 1. Avascular necrosis left hip - left total hip arthroplasty performed yesterday, 03/07/2023. Patient stable at bedside this morning. Patient did do well with physical therapy. Patient does have a walker at home. Discharge home today with health services. 2. Appreciate medical management 3. Pain management - [place] 4. GI prophylaxis - senna 5. DVT prophylaxis - [facility]. Going home with Eliqu 6. PT/OT - weightbearing as tolerated with walker 7. Encourage incentive spirometer use 8. Discharge planning - discharge home today with health services Time with Patient: Less than 30
[2023-03-08] MEDS: MAGNESIUM SULFATE-D5W PMX 1 GM in DEXTROSE/WATER 1 100ML.BAG IVPB SCH ×4 (12:46→17:07)
[2023-03-08 13:15] VITALS: BMI 23.1
[2023-03-08 13:46] VITALS: BP 104/68; PULSE 66; RESP 17; TEMP 98.7
== END 2023-03-08 18:32 | disposition home health service (06) ==
LOC: OR 08:37 → 4SSUR 15:25 → OR 03-08 18:32
PROVIDERS: ATTEND Orthopaedic Surgery
DX: M87.852 Other osteonecrosis, left femur (principal); G89.18 Other acute postprocedural pain; J45.909 Unspecified asthma, uncomplicated; I10 Essential (primary) hypertension; G47.30 Sleep apnea, unspecified; F17.200 Nicotine dependence, unspecified, uncomplicated; Z90.49 Acquired absence of other specified parts of digestive tract; Z96.641 Presence of right artificial hip joint; Z79.51 Long term (current) use of inhaled steroids; Z88.8 Allergy status to other drugs, medicaments and biological substances; Z79.899 Other long term (current) drug therapy
CPT/HCPCS: 97161; 97165; 64447; 86900 ×2; 86901 ×2; 80048; 83735; 85025; 86850 ×2; 73501; 27130; C1776; J2250; J1100; J0690 ×3; J2405; J3010; J1170 ×2; J3475